=== PATIENT | male | born 1955 | race American Indian/Alaskan Native ===

== ENCOUNTER 2017-04-17 06:44 | Day surgery (SDC) | payer OTHER ==
[2017-04-17] MEDS ORDERED: ECOTRIN PO ONE (07:18)
[2017-04-17 07:56] LABS: Anion Gap 16 mmol/L; Blood Urea Nitrogen 20 mg/dL (9-20); Calcium 8.8 mg/dL (8.4-10.2); Carbon Dioxide 27 mmol/L (22-30); Chloride 99.3 mmol/L (98-107); Glucose 82 mg/dL (75-100); Potassium 4.2 mmol/L (3.6-5.0); Sodium 138 mmol/L (137-145)
[2017-04-17 07:59] LABS: INR 1.14 (0.87-1.13)
[2017-04-17] MEDS ORDERED: NACL 0.9% 500 ML 500 ML IV SCH (08:00)
[2017-04-17 08:15] LABS: Basophils % (Auto) 1.5 % (0.0-1.8); Eosinophils % (Auto) 3.2 % (0.0-4.3); Hematocrit 32.5 % (35.5-45.6); Hemoglobin 10.6 gm/dl (11.8-15.2); Mean Corpuscular HGB Conc 33 % (32-34); Mean Corpuscular Hemoglobin 29 pg (28-32); Mean Corpuscular Volume 89 fl (84-94); Platelet Count 244 K/mm3 (140-440); Red Blood Count 3.64 M/mm3 (3.65-5.03); White Blood Count 3.8 K/mm3 (4.5-11.0)
[2017-04-17] MEDS ORDERED: NITROGLYCERIN SYRINGE 3 ML ONE (08:42)
[2017-04-17] MEDS ORDERED: HEPARIN/NS 5000 UNIT/500ML(CATH LAB) 1,000 ML IR ONE (08:42)
[2017-04-17] MEDS: VERSED ONE ×2 (09:00→09:08)
[2017-04-17] MEDS: SUBLIMAZE ONE ×2 (09:00→09:08)
[2017-04-17] MEDS: CALAN ONE ×2 (09:01→09:12)
[2017-04-17] MEDS: HEPARIN 10,000 UNITS/10 ML ONE ×2 (09:01→09:12)
[2017-04-17] MEDS: XYLOCAINE 2% INFILTRATI ONE ×2 (09:01→09:10)
--- NOTE | 2017-04-17 09:47 | Short Stay Summary ---
Short Stay Documentation Date of service: 04/17/17 - History H&P: obtained from office - Allergies and Medications Current Medications: Allergies No Known Allergies Allergy (Unverified 04/17/17 06:44) Home Medications Medication Instructions Recorded Confirmed Last Taken Type Carvedilol [Carvedilol] 6.25 mg PO BID 04/17/17 04/17/17 04/15/17 History Gabapentin [Gabapentin] 300 mg PO TID 04/17/17 04/17/17 04/15/17 History Lisinopril/Hydrochlorothiazide 1 tab PO QDAY 04/17/17 04/17/17 04/15/17 History [Zestoretic 20-12.5 mg] Potassium 10 meq PO QDAY 04/17/17 04/17/17 04/15/17 History Active Medications Sodium Chloride (Nacl 0.9% 500 Ml) 500 mls @ 50 mls/hr IV DIRECT LIZ Stop: 04/17/17 17:59 Last Admin: 04/17/17 07:53 Dose: 50 mls/hr - Physical exam General appearance: no acute distress Integumentary: no rash HEENT: Atraumatic Lungs: Clear to auscultation Breasts: deferred Heart: Regular rate Gastrointestinal: normal Male Genitourinary: deferred Female Genitourinary: deferred Rectal Exam: deferred Extremities: no ischemia Neurological: Normal gait - Brief post op/procedure progress note Date of procedure: 04/17/17 Pre-op diagnosis: Cardiomyopathy, abnormal MPI Post-op diagnosis: same Procedure: LHC and LV gram Anesthesia: MAC Findings: Non-obstructive CAD, 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
--- NOTE | 2017-04-17 12:02 | Cardiac Catherization Report ---
LEFT HEART CATHETERIZATION ORDERING PHYSICIAN: Ina Serra M.D. INDICATION FOR PROCEDURE: Cardiomyopathy, abnormal myocardial perfusion scan revealing inferior, as well as anterior wall ischemia. PROCEDURES PERFORMED: 1. Selective left and right coronary angiography. 2. Left ventriculography. DESCRIPTION OF PROCEDURE: After obtaining written consent, the patient was draped using sterile technique. A 2% lidocaine was injected into the right wrist. A 1 mg of IV Versed and 2 mcg of IV fentanyl were used for conscious sedation. A 6-Georgian vascular sheath was inserted into the right radial artery. A 6-Georgian JL3.5 catheter was used to selectively engage the left coronary artery. A 6-Georgian JR4 catheter was used to selectively engage the right coronary artery. A 6-Georgian pigtail catheter was used to perform a left ventriculogram. No complications occurred during the procedure. Hemostasis was achieved at the end of the procedure using manual pressure. Estimated blood loss was minimal. SPECIMEN REMOVED: None. FINDINGS: Aortic pressure was 141/78, LV systolic pressure was 141 mmHg, LV end-diastolic pressure was 34 mmHg. CARDIAC STRUCTURES: The left ventricular cavity is dilated. There is moderate global left ventricular hypokinesis with an ejection fraction estimated at 35%. There is no significant mitral regurgitation. CORONARY ANATOMY: 1. This is a right dominant circulation. 2. The left main is a large caliber vessel with 10% mild disease. 3. The left anterior descending artery is a large caliber vessel with 10% diffuse mild disease. 4. The left circumflex artery is a large caliber vessel with 10% diffuse mild disease. 5. The right coronary artery is a large caliber vessel with 10% diffuse mild disease. The right coronary artery is dominant vessel. IMPRESSION: 1. Nonobstructive mild diffuse luminal irregularities noted throughout this right dominant circulation. 2. Dilated and hypokinetic left ventricle with an ejection fraction estimated at 35%. 3. Elevated left ventricular end-diastolic pressure measured at 34 mmHg. RECOMMENDATIONS: Continue afterload reduction and diuresis. Follow up with referring medical lab technologist. JOB# [id number] MICAELA/RIKA
[2017-04-17 12:16] VITALS: BP 127/79
== END 2017-04-17 12:45 | disposition home or self-care (01) ==
LOC: OPU 06:44
PROVIDERS: ATTEND Internal Medicine Cardiovascular Disease
DX: I25.10 Atherosclerotic heart disease of native coronary artery without angina pectoris (principal); I10 Essential (primary) hypertension; Z72.89 Other problems related to lifestyle; Z79.899 Other long term (current) drug therapy
CPT/HCPCS: 36415; 80048; 85025; 85610; 85730; 93005; 93010; 93458; C1894; J1644; J2250; J3010; J7040; Q9967

== ENCOUNTER 2017-10-20 09:33 | Inpatient (IN) | payer OTHER ==
--- NOTE | 2017-10-20 10:12 | Emergency Department Report ---
Chief Complaint: Extremity Problem,Nontraumatic Stated Complaint: LEGS SWOLLEN - HPI History of Present Illness: This 62-year-old male who presents with bilateral lower extremity swelling and pain 1 month. Patient denies any trauma. Patient also complaining of left hip pain described as aching. Patient denies any chest pain, calf pain, calf tenderness, shortness of breath, headache, stiff neck, nausea, vomiting, fever or chills. Denies recent travels or long car rides. Patient denies any history of any cardiac hypertension. - Exam Vital Signs: Vital Signs 10/20/17 09:53 Temperature 97.5 F L Pulse Rate 83 Respiratory 20 Rate Blood Pressure 147/105 O2 Sat by Pulse 96 Oximetry Physical Exam: GENERAL: The patient is a well-developed, well-nourished female in no apparent distress. Patient is alert and acting appropriately for age. Alert and oriented 3, no apparent distress, normal gait, atraumatic. LUNGS: Clear to auscultation. Non labor breathing. No intercostal retractions. Symmetrical with respiration, no wheezing, no rales, or crackles. HEART: Regular rate and rhythm with slight murmur heard, rubs or gallops. No reproducible. S1, S2 present, regular rate and rhythm without murmur, no rubs, no gallops. EXTREMITIES: Without any cyanosis, clubbing, rash, lesions. Positive edema kristine lower ext. 2+ pitting edema. Peripheral pulses intact. Capillary refill less than 2 seconds. Full range of motion bilaterally. MSE screening note: Focused history and physical exam performed. Due to findings the following was ordered: 1- This initial assessment/diagnostic orders/clinical plan/ treatment(s) is/are subject to change based on pt's health status, clinical progression and re- assessment by fellow clinical providers in the ED. Further treatment and workup at subsequent clinical provers discretion. Patient/guardians urged not to elope from ED as their condition may be serious if not clinically assessed and managed. 2-CBC, CMP, BNP, EKG, PT, INR, CXR, UA ED Disposition for MSE Condition: Stable
[2017-10-20 10:45] LABS: Basophils % (Auto) 0.8 % (0.0-1.8); Eosinophils % (Auto) 0.7 % (0.0-4.3); Hematocrit 35.3 % (35.5-45.6); Hemoglobin 11.4 gm/dl (11.8-15.2); Mean Corpuscular HGB Conc 32 % (32-34); Mean Corpuscular Hemoglobin 29 pg (28-32); Mean Corpuscular Volume 89 fl (84-94); Platelet Count 232 K/mm3 (140-440); Red Blood Count 3.97 M/mm3 (3.65-5.03); Red Cell Distribution Width 18.3 % (13.2-15.2); White Blood Count 6.1 K/mm3 (4.5-11.0)
[2017-10-20 10:53] LABS: INR 1.26 (0.87-1.13)
[2017-10-20 10:54] LABS: Partial Thromboplastin Time 29.6 Sec. (24.2-36.6)
--- NOTE | 2017-10-20 11:03 | XRay Report ---
ROUTINE CHEST, TWO VIEWS: HISTORY: Short of breath. No comparison. Mild cardiomegaly, mild pulmonary venous congestion and trace bilateral pleural effusions are identified. No evidence for consolidation or pneumothorax. IMPRESSION: Mild CHF.
[2017-10-20 11:04] LABS: Alanine Aminotransferase 28 units/L (7-56); Albumin 3.4 g/dL (3.9-5); Alkaline Phosphatase 82 units/L (35-129); Anion Gap 19 mmol/L; BUN/Creatinine Ratio 20; Blood Urea Nitrogen 24 mg/dL (9-20); Calcium 8.2 mg/dL (8.4-10.2); Carbon Dioxide 24 mmol/L (22-30); Chloride 100.4 mmol/L (98-107); Glucose 108 mg/dL (75-100); Potassium 3.5 mmol/L (3.6-5.0); Sodium 140 mmol/L (137-145); Total Protein 6.9 g/dL (6.3-8.2)
[2017-10-20 16:10] LABS: Bacteria,Urine 1+ /HPF (Negative); Bilirubin,Urine NEG (Negative); Blood,Urine NEG (Negative); Ketones,Urine NEG (Negative); Leukocyte Esterase,Urine NEG (Negative); Nitrite,Urine NEG (Negative); WBC,Urine < 1.0 /HPF (0.0-6.0)
[2017-10-20] MEDS ORDERED: LASIX IV ONE (17:18)
--- NOTE | 2017-10-20 17:22 | Emergency Department Report ---
HPI - General Chief Complaint: Extremity Problem,Nontraumatic Time Seen by Provider: 10/20/17 17:04 - [facility] HPI: Room 23 The patient is a 62-year-old male presenting with a chief complaint of bilateral lower extremity edema and shortness of breath. The patient states for the past 6 months he's had worsening bilateral lower extremity edema that improves when he lies down. The patient states for approximately 1 month history of shortness of breath and dyspnea on exertion. Patient also complains of left hip pain with walking. Patient denies chest pain but does admit to an occasional cough that is nonproductive. Location: Lungs Duration: 6 months Quality: Shortness of breath, swelling Severity: Moderate Modifying factors: [see above] Context: [see above] Mode of transportation: [not driving] ED Past Medical Hx - Past Medical History Previous Medical History?: Yes Hx Hypertension: Yes (01/16) - Surgical History Past Surgical History?: No - Family History Family history: no significant - Social History Smoking Status: Former Smoker (none 2 months) Substance Use Type: None (denies illicit drug use), Alcohol, Prescribed - Medications Home Medications: Home Medications Medication Instructions Recorded Confirmed Last Taken Type Carvedilol 6.25 mg PO BID 04/17/17 04/17/17 04/15/17 History Gabapentin 300 mg PO TID 04/17/17 04/17/17 04/15/17 History Lisinopril/Hydrochlorothiazide 1 tab PO QDAY 04/17/17 04/17/17 04/15/17 History [Zestoretic 20-12.5 mg] Potassium 10 meq PO QDAY 04/17/17 04/17/17 04/15/17 History ED Review of Systems ROS: Stated complaint: LEGS SWOLLEN Other details as noted in HPI Constitutional: denies: fever Respiratory: shortness of breath, SOB with exertion Cardiovascular: dyspnea on exertion. denies: chest pain Endocrine: no symptoms reported Gastrointestinal: nausea. denies: vomiting Musculoskeletal: arthralgia, myalgia Physical Exam - Physical Exam Vital Signs: Vital Signs 10/20/17 10/20/17 10/20/17 09:53 14:44 14:46 Temperature 97.5 F L Pulse Rate 83 88 Respiratory 20 18 Rate Blood Pressure 147/105 O2 Sat by Pulse 96 98 99 Oximetry 10/20/17 10/20/17 10/20/17 15:00 15:16 16:14 Temperature Pulse Rate 90 86 Respiratory 23 19 Rate Blood Pressure 156/124 156/124 O2 Sat by Pulse 96 96 100 Oximetry Physical Exam: GENERAL: The patient is well-developed well-nourished male lying on stretcher not appearing to be in acute distress. [] HEENT: Normocephalic. Atraumatic. Extraocular motions are intact. Patient has moist mucous membranes. NECK: Supple. Trachea midline CHEST/LUNGS: There is no respiratory distress noted. HEART/CARDIOVASCULAR: Regular. There is no tachycardia. There is no gallop rub or murmur. ABDOMEN: Abdomen is soft, nontender. There is no abdominal distention. SKIN: There is no rash. There is 3+ bilateral lower extremities pitting edema. There is no diaphoresis. NEURO: The patient is awake, alert, and oriented. The patient is cooperative. The patient has normal speech MUSCULOSKELETAL: There is no evidence of acute injury. ED Course Vital Signs 10/20/17 10/20/17 10/20/17 09:53 14:44 14:46 Temperature 97.5 F L Pulse Rate 83 88 Respiratory 20 18 Rate Blood Pressure 147/105 O2 Sat by Pulse 96 98 99 Oximetry 10/20/17 10/20/17 10/20/17 15:00 15:16 16:14 Temperature Pulse Rate 90 86 Respiratory 23 19 Rate Blood Pressure 156/124 156/124 O2 Sat by Pulse 96 96 100 Oximetry ED Medical Decision Making - Lab Data Result diagrams: 10/20/17 10:14 10/20/17 10:14 Laboratory Tests 10/20/17 10/20/17 10/20/17 10:14 10:14 10:14 WBC 6.1 RBC 3.97 Hgb 11.4 L Hct 35.3 L MCV 89 MCH 29 MCHC 32 RDW 18.3 H Plt Count 232 Lymph % (Auto) 8.6 L [place] % (Auto) 9.2 H Eos % (Auto) 0.7 Baso % (Auto) 0.8 Lymph # 0.5 L [place] # 0.6 Eos # 0.0 Baso # 0.0 Seg Neutrophils % 80.7 H Seg Neutrophils # 4.9 PT 16.4 H INR 1.26 H APTT 29.6 Sodium 140 Potassium 3.5 L Chloride 100.4 Carbon Dioxide 24 Anion Gap 19 BUN 24 H Creatinine 1.2 Estimated GFR > 60 BUN/Creatinine Ratio 20 Glucose 108 H Calcium 8.2 L Total Bilirubin 2.30 H AST 29 ALT 28 Alkaline Phosphatase 82 NT-Pro-B Natriuret Pep Total Protein 6.9 Albumin 3.4 L Albumin/Globulin Ratio 1.0 Urine Color Urine Turbidity Urine pH Ur Specific [place] Urine Protein Urine Glucose (UA) Urine Ketones Urine Blood Urine Nitrite Urine Bilirubin Urine Urobilinogen Ur Leukocyte Esterase Urine WBC (Auto) Urine RBC (Auto) Urine Bacteria (Auto) Hyaline Casts 10/20/17 10/20/17 10:14 15:45 WBC RBC Hgb Hct MCV MCH MCHC RDW Plt Count Lymph % (Auto) [place] % (Auto) Eos % (Auto) Baso % (Auto) Lymph # [place] # Eos # Baso # Seg Neutrophils % Seg Neutrophils # PT INR APTT Sodium Potassium Chloride Carbon Dioxide Anion Gap BUN Creatinine Estimated GFR BUN/Creatinine Ratio Glucose Calcium Total Bilirubin AST ALT Alkaline Phosphatase NT-Pro-B Natriuret Pep 5955 H Total Protein Albumin Albumin/Globulin Ratio Urine Color Yellow Urine Turbidity Clear Urine pH 6.0 Ur Specific [place] 1.016 Urine Protein 30 mg/dl Urine Glucose (UA) Neg Urine Ketones Neg Urine Blood Neg Urine Nitrite Neg Urine Bilirubin Neg Urine Urobilinogen 4.0 Ur Leukocyte Esterase Neg Urine WBC (Auto) < 1.0 Urine RBC (Auto) 1.0 Urine Bacteria (Auto) 1+ Hyaline Casts 3 - EKG Data -: EKG Interpreted by Me EKG shows normal: sinus rhythm Rate: normal - EKG Data When compared to previous EKG there are: previous EKG unavailable Interpretation: nonspecific ST-T wave ta (T-wave inversions in leads V5, V6) - Radiology Data Radiology results: image reviewed (chest x-ray) interpreted by me: Chest x-ray- cardiomegaly. No focal infiltrates, no pneumothorax - Differential Diagnosis CHF, ACS, pericarditis, pneumonia Critical care attestation.: If time is entered above; I have spent that time in minutes in the direct care of this critically ill patient, excluding procedure time. ED Disposition Clinical Impression: Congestive heart failure, Dyspnea on exertion Disposition: OP ADMIT IP TO THIS HOSP Is pt being admited?: Yes Does the pt Need Aspirin: Yes Condition: Fair Referrals: PRIMARY CARE, [Primary Care Provider] - 3-5 Days Time of Disposition: 17:24 (Hospitalist (Jaci) notified)
[2017-10-20] MEDS ORDERED: ASPIRIN PO ONE (17:24)
--- NOTE | 2017-10-20 18:09 | History and Physical Report ---
History of Present Illness Date of examination: 10/20/17 Date of admission: 10/20/17 Chief complaint: SOB and leg swelling x 1 month History of present illness: Patient is 62-year-old with history of hypertension, cardiomyopathy with EF 35% , gout. He presents with a one-month history of shortness of breath and bilateral leg edema. Patient states leg swelling started with both feet, became worse ascending up and now edema up to upper thighs. In addition he has been having shortness of breath, worse on exertion, worse on climbing stairs and also worse on lying flat. He denies any chest pain. No abdominal pain, no fever. In Emergency Dept, chest x-ray showed CHF. he was given lasix iv and is being admitted for further management. Also of note he had a cardiac cath March 2017 showed irregularities but no significant CAD, EF 35% Past History Past Medical History: hypertension, other (gout, cardiomyopathy) Past Surgical History: Other (cardiac cath in March 2017) Social history: , lives with family, alcohol abuse, full code. denies: smoking (Quit smoking 2 months ago) Family history: hypertension Medications and Allergies Allergies Allergy/AdvReac Type Severity Reaction Status Date / Time No Known Allergies Allergy Unverified 04/17/17 06:44 Home Medications Medication Instructions Recorded Confirmed Last Taken Type Carvedilol 6.25 mg PO BID 04/17/17 04/17/17 04/15/17 History Gabapentin 300 mg PO TID 04/17/17 04/17/17 04/15/17 History Lisinopril/Hydrochlorothiazide 1 tab PO QDAY 04/17/17 04/17/17 04/15/17 History [Zestoretic 20-12.5 mg] Potassium 10 meq PO QDAY 04/17/17 04/17/17 04/15/17 History Review of Systems All systems: negative (no chest pain, no fever, no abdominal pain, no urinary symptoms. All other systems reviewed and are negative) Exam - Physical Exam Narrative exam: GEN APPEARANCE : Not in acute distress, HEENT: Normocephalic Atraumatic NECK : supple, JVD present LUNGS: Bilateral basal crackles, no wheeze HEART: S1 and S2 regular, no murmurs, rubs or gallop ABD: Soft, no tenderness, no distension, normal bowel sounds EXT: Bilateral pitting edema 4+ from feet up to upper thighs, no clubbing, no cyanosis NEURO:Awake,alert,oriented x 3, no facial asymmetry, muscle power 5/5 both upper and lower ext PSYCH: Normal mood - Constitutional Vitals: Temp Pulse Resp BP Pulse Ox 97.5 F L 86 19 156/124 100 10/20/17 09:53 10/20/17 15:16 10/20/17 15:16 10/20/17 15:16 10/20/17 16:14 Results - Labs CBC & Chem 7: 10/20/17 10:14 10/20/17 10:14 Labs: Abnormal lab results 10/20/17 10/20/17 10/20/17 Range/Units 10:14 10:14 10:14 Hgb 11.4 L (11.8-15.2) gm/dl Hct 35.3 L (35.5-45.6) % RDW 18.3 H (13.2-15.2) % Lymph % (Auto) 8.6 L (13.4-35.0) % [place] % (Auto) 9.2 H (0.0-7.3) % Lymph # 0.5 L (1.2-5.4) K/mm3 Seg Neutrophils % 80.7 H (40.0-70.0) % PT 16.4 H (12.2-14.9) Sec. INR 1.26 H (0.87-1.13) Potassium 3.5 L (3.6-5.0) mmol/L BUN 24 H (9-20) mg/dL Glucose 108 H (75-100) mg/dL Calcium 8.2 L (8.4-10.2) mg/dL Total Bilirubin 2.30 H (0.1-1.2) mg/dL NT-Pro-B Natriuret Pep (0-900) pg/mL Albumin 3.4 L (3.9-5) g/dL 10/20/17 Range/Units 10:14 Hgb (11.8-15.2) gm/dl Hct (35.5-45.6) % RDW (13.2-15.2) % Lymph % (Auto) (13.4-35.0) % [place] % (Auto) (0.0-7.3) % Lymph # (1.2-5.4) K/mm3 Seg Neutrophils % (40.0-70.0) % PT (12.2-14.9) Sec. INR (0.87-1.13) Potassium (3.6-5.0) mmol/L BUN (9-20) mg/dL Glucose (75-100) mg/dL Calcium (8.4-10.2) mg/dL Total Bilirubin (0.1-1.2) mg/dL NT-Pro-B Natriuret Pep 5955 H (0-900) pg/mL Albumin (3.9-5) g/dL Assessment and Plan Acute systolic congestive heart failure. Admit to telemetry. Use CHF protocol. Lasix 40 mg IV twice daily. Continue Lisinopril and Coreg he was taking from home. Strict fluid intake and outputs, daily weights. Cardiac Diet. Consult [facility] who did cardiac cath in March this year. Acute resp failure due to acute CHF. Supplemental Oxygen Hypokalemia. Replace with K-dur Elevated Bilirubin. May be due to Hepatic congestion. Repeat CMP Hypertensive urgency: Resume Coreg and Lisinopril DVT prophylaxis with Heparin subcut. Full code status
[2017-10-20] MEDS ORDERED: DULCOLAX PR PRN (18:11)
[2017-10-20] MEDS ORDERED: MORPHINE IV PRN (18:11)
[2017-10-20] MEDS ORDERED: MILK OF MAGNESIA PO PRN (18:11)
[2017-10-20] MEDS ORDERED: TYLENOL PO PRN (18:11)
[2017-10-20] MEDS ORDERED: ZOFRAN IV PRN (18:11)
[2017-10-20] MEDS: COREG PO SCH ×2 (18:46→22:33)
[2017-10-20] MEDS: K-DUR PO SCH (18:48)
[2017-10-20] MEDS: ZESTRIL PO SCH ×2 (18:48→22:32)
[2017-10-20] MEDS: NEURONTIN PO SCH (21:10)
[2017-10-20] MEDS ORDERED: NEURONTIN ONE (21:12)
[2017-10-20] MEDS: HEPARIN SUB-Q SCH (22:33)
[2017-10-21] MEDS: K-DUR PO SCH ×2 (01:19→09:39)
[2017-10-21] MEDS ORDERED: K-DUR PO SCH (02:00)
[2017-10-21 06:01] LABS: Basophils % (Auto) 0.8 % (0.0-1.8); Eosinophils % (Auto) 0.9 % (0.0-4.3); Hematocrit 36.5 % (35.5-45.6); Hemoglobin 11.3 gm/dl (11.8-15.2); Mean Corpuscular HGB Conc 31 % (32-34); Mean Corpuscular Hemoglobin 28 pg (28-32); Mean Corpuscular Volume 89 fl (84-94); Platelet Count 228 K/mm3 (140-440); Red Blood Count 4.09 M/mm3 (3.65-5.03); Red Cell Distribution Width 17.8 % (13.2-15.2); White Blood Count 5.4 K/mm3 (4.5-11.0)
[2017-10-21] MEDS: LASIX IV SCH ×2 (06:14→17:33)
[2017-10-21 06:23] LABS: Alanine Aminotransferase 24 units/L (7-56); Albumin 3.3 g/dL (3.9-5); Albumin/Globulin Ratio 0.9 %; Alkaline Phosphatase 81 units/L (35-129); Anion Gap 19 mmol/L; BUN/Creatinine Ratio 22; Blood Urea Nitrogen 24 mg/dL (9-20); Calcium 8.3 mg/dL (8.4-10.2); Carbon Dioxide 25 mmol/L (22-30); Chloride 99.8 mmol/L (98-107); Glucose 94 mg/dL (75-100); Potassium 3.8 mmol/L (3.6-5.0); Sodium 140 mmol/L (137-145); Total Protein 6.8 g/dL (6.3-8.2)
[2017-10-21] MEDS: HEPARIN SUB-Q SCH ×3 (06:26→21:39)
[2017-10-21] MEDS: NEURONTIN PO SCH ×3 (08:10→21:40)
--- NOTE | 2017-10-21 08:41 | Progress Note ---
<DIANE HUMPHREYS - Last Filed: 10/21/17 10:24> Assessment and Plan Assessment and plan: Patient is 62-year-old with history of hypertension, cardiomyopathy with EF 35% , gout. He presents with a one-month history of shortness of breath and bilateral leg edema. Patient states leg swelling started with both feet, became worse ascending up and now edema up to upper thighs. In addition he has been having shortness of breath, worse on exertion, worse on climbing stairs and also worse on lying flat. Acute respiratory failure with hypoxia due to acute CHF supplemental Oxygen Patient oxygen saturation improved with 2LNC; currently SPO2 98%. No acute respiratory distress noted. Aggressive Nebulizers/Inhalers ABG when necessary Oxygen supplement Supportive care Acute systolic congestive heart failure Echocardiogram EF 35% by [facility] 03/2017 Continue on Diuresis, beta blockers and ACEI/ARB Strict I&O's and daily weights Low-sodium/cardiac diet/fluid restriction Closely monitor electrolytes Cardiology evaluation Dilated NICMP EF 35% by [facility] 03/2017 Hypokalemia Resolved Closely monitor electrolytes Elevated Bilirubin. Most likely due to Hepatic congestion. Repeat CMP Hypertensive urgency Continue home antihypertensive medications Closely monitor blood pressure Chronic anemia H&H stable for patient at this point; no blood transfusions needed Closely monitor H&H DVT prophylaxis Heparin History Interval history: Patient denies shortnesses of breath, chest pain. Labs and nursing notes reviewed. Hospitalist Physical - Constitutional Vitals: Temp Pulse Resp BP Pulse Ox 98.2 F 50 L 19 133/96 100 10/21/17 08:13 10/21/17 08:13 10/21/17 08:13 10/21/17 04:40 10/21/17 08:13 General appearance: Present: no acute distress - EENT Eyes: Present: PERRL ENT: hearing intact - Neck Neck: Present: supple - Respiratory Respiratory effort: normal Respiratory: bilateral: rales - Cardiovascular Rhythm: regular Heart Sounds: Present: S1 & S2 - Extremities Extremity abnormal: edema (and dark discoloration) - Abdominal General gastrointestinal: soft, non-tender - Integumentary Integumentary: Present: clear, warm, dry - Psychiatric Psychiatric: appropriate mood/affect - Neurologic Neurologic: moves all extremities - Allied Health Allied health notes reviewed: nursing Results - Labs CBC & Chem 7: 10/21/17 05:05 10/21/17 05:05 Labs: Laboratory Last Values WBC 5.4 K/mm3 (4.5-11.0) 10/21/17 05:05 RBC 4.09 M/mm3 (3.65-5.03) 10/21/17 05:05 Hgb 11.3 gm/dl (11.8-15.2) L 10/21/17 05:05 Hct 36.5 % (35.5-45.6) 10/21/17 05:05 MCV 89 fl (84-94) 10/21/17 05:05 MCH 28 pg (28-32) 10/21/17 05:05 MCHC 31 % (32-34) L 10/21/17 05:05 RDW 17.8 % (13.2-15.2) H 10/21/17 05:05 Plt Count 228 K/mm3 (140-440) 10/21/17 05:05 Lymph % (Auto) 12.8 % (13.4-35.0) L 10/21/17 05:05 [place] % (Auto) 11.7 % (0.0-7.3) H 10/21/17 05:05 Eos % (Auto) 0.9 % (0.0-4.3) 10/21/17 05:05 Baso % (Auto) 0.8 % (0.0-1.8) 10/21/17 05:05 Lymph # 0.7 K/mm3 (1.2-5.4) L 10/21/17 05:05 [place] # 0.6 K/mm3 (0.0-0.8) 10/21/17 05:05 Eos # 0.1 K/mm3 (0.0-0.4) 10/21/17 05:05 Baso # 0.0 K/mm3 (0.0-0.1) 10/21/17 05:05 Seg Neutrophils % 73.8 % (40.0-70.0) H 10/21/17 05:05 Seg Neutrophils # 4.0 K/mm3 (1.8-7.7) 10/21/17 05:05 PT 16.4 Sec. (12.2-14.9) H 10/20/17 10:14 INR 1.26 (0.87-1.13) H 10/20/17 10:14 APTT 29.6 Sec. (24.2-36.6) 10/20/17 10:14 Sodium 140 mmol/L (137-145) 10/21/17 05:05 Potassium 3.8 mmol/L (3.6-5.0) 10/21/17 05:05 Chloride 99.8 mmol/L (98-107) 10/21/17 05:05 Carbon Dioxide 25 mmol/L (22-30) 10/21/17 05:05 Anion Gap 19 mmol/L 10/21/17 05:05 BUN 24 mg/dL (9-20) H 10/21/17 05:05 Creatinine 1.1 mg/dL (0.8-1.5) 10/21/17 05:05 Estimated GFR > 60 ml/min 10/21/17 05:05 BUN/Creatinine Ratio 22 % 10/21/17 05:05 Glucose 94 mg/dL (75-100) 10/21/17 05:05 Calcium 8.3 mg/dL (8.4-10.2) L 10/21/17 05:05 Total Bilirubin 2.60 mg/dL (0.1-1.2) H 10/21/17 05:05 AST 23 units/L (5-40) 10/21/17 05:05 ALT 24 units/L (7-56) 10/21/17 05:05 Alkaline Phosphatase 81 units/L (35-129) 10/21/17 05:05 NT-Pro-B Natriuret Pep 5955 pg/mL (0-900) H 10/20/17 10:14 Total Protein 6.8 g/dL (6.3-8.2) 10/21/17 05:05 Albumin 3.3 g/dL (3.9-5) L 10/21/17 05:05 Albumin/Globulin Ratio 0.9 % 10/21/17 05:05 Urine Color Yellow (Yellow) 10/20/17 15:45 Urine Turbidity Clear (Clear) 10/20/17 15:45 Urine pH 6.0 (5.0-7.0) 10/20/17 15:45 Ur Specific [place] 1.016 (1.003-1.030) 10/20/17 15:45 Urine Protein 30 mg/dl mg/dL (Negative) 10/20/17 15:45 Urine Glucose (UA) Neg mg/dL (Negative) 10/20/17 15:45 Urine Ketones Neg mg/dL (Negative) 10/20/17 15:45 Urine Blood Neg (Negative) 10/20/17 15:45 Urine Nitrite Neg (Negative) 10/20/17 15:45 Urine Bilirubin Neg (Negative) 10/20/17 15:45 Urine Urobilinogen 4.0 mg/dL (<2.0) 10/20/17 15:45 Ur Leukocyte Esterase Neg (Negative) 10/20/17 15:45 Urine WBC (Auto) < 1.0 /HPF (0.0-6.0) 10/20/17 15:45 Urine RBC (Auto) 1.0 /HPF (0.0-6.0) 10/20/17 15:45 Urine Bacteria (Auto) 1+ /HPF (Negative) 10/20/17 15:45 Hyaline Casts 3 /LPF 10/20/17 15:45 <SALAZAR MEZA M - Last Filed: 10/21/17 16:26> Assessment and Plan Assessment and plan: I saw and evaluated the patient. I agree with the findings and the plan of care as documented in the Nurse Practitioner's progress note. Hospitalist Physical - Constitutional Vitals: Temp Pulse Resp BP Pulse Ox 98.1 F 75 19 130/95 100 10/21/17 15:52 10/21/17 15:52 10/21/17 15:52 10/21/17 15:52 10/21/17 15:52 Results - Labs CBC & Chem 7: 10/21/17 05:05 10/21/17 05:05 Labs: Laboratory Last Values WBC 5.4 K/mm3 (4.5-11.0) 10/21/17 05:05 RBC 4.09 M/mm3 (3.65-5.03) 10/21/17 05:05 Hgb 11.3 gm/dl (11.8-15.2) L 10/21/17 05:05 Hct 36.5 % (35.5-45.6) 10/21/17 05:05 MCV 89 fl (84-94) 10/21/17 05:05 MCH 28 pg (28-32) 10/21/17 05:05 MCHC 31 % (32-34) L 10/21/17 05:05 RDW 17.8 % (13.2-15.2) H 10/21/17 05:05 Plt Count 228 K/mm3 (140-440) 10/21/17 05:05 Lymph % (Auto) 12.8 % (13.4-35.0) L 10/21/17 05:05 [place] % (Auto) 11.7 % (0.0-7.3) H 10/21/17 05:05 Eos % (Auto) 0.9 % (0.0-4.3) 10/21/17 05:05 Baso % (Auto) 0.8 % (0.0-1.8) 10/21/17 05:05 Lymph # 0.7 K/mm3 (1.2-5.4) L 10/21/17 05:05 [place] # 0.6 K/mm3 (0.0-0.8) 10/21/17 05:05 Eos # 0.1 K/mm3 (0.0-0.4) 10/21/17 05:05 Baso # 0.0 K/mm3 (0.0-0.1) 10/21/17 05:05 Seg Neutrophils % 73.8 % (40.0-70.0) H 10/21/17 05:05 Seg Neutrophils # 4.0 K/mm3 (1.8-7.7) 10/21/17 05:05 PT 16.4 Sec. (12.2-14.9) H 10/20/17 10:14 INR 1.26 (0.87-1.13) H 10/20/17 10:14 APTT 29.6 Sec. (24.2-36.6) 10/20/17 10:14 Sodium 140 mmol/L (137-145) 10/21/17 05:05 Potassium 3.8 mmol/L (3.6-5.0) 10/21/17 05:05 Chloride 99.8 mmol/L (98-107) 10/21/17 05:05 Carbon Dioxide 25 mmol/L (22-30) 10/21/17 05:05 Anion Gap 19 mmol/L 10/21/17 05:05 BUN 24 mg/dL (9-20) H 10/21/17 05:05 Creatinine 1.1 mg/dL (0.8-1.5) 10/21/17 05:05 Estimated GFR > 60 ml/min 10/21/17 05:05 BUN/Creatinine Ratio 22 % 10/21/17 05:05 Glucose 94 mg/dL (75-100) 10/21/17 05:05 Calcium 8.3 mg/dL (8.4-10.2) L 10/21/17 05:05 Total Bilirubin 2.60 mg/dL (0.1-1.2) H 10/21/17 05:05 AST 23 units/L (5-40) 10/21/17 05:05 ALT 24 units/L (7-56) 10/21/17 05:05 Alkaline Phosphatase 81 units/L (35-129) 10/21/17 05:05 NT-Pro-B Natriuret Pep 5955 pg/mL (0-900) H 10/20/17 10:14 Total Protein 6.8 g/dL (6.3-8.2) 10/21/17 05:05 Albumin 3.3 g/dL (3.9-5) L 10/21/17 05:05 Albumin/Globulin Ratio 0.9 % 10/21/17 05:05 Urine Color Yellow (Yellow) 10/20/17 15:45 Urine Turbidity Clear (Clear) 10/20/17 15:45 Urine pH 6.0 (5.0-7.0) 10/20/17 15:45 Ur Specific [place] 1.016 (1.003-1.030) 10/20/17 15:45 Urine Protein 30 mg/dl mg/dL (Negative) 10/20/17 15:45 Urine Glucose (UA) Neg mg/dL (Negative) 10/20/17 15:45 Urine Ketones Neg mg/dL (Negative) 10/20/17 15:45 Urine Blood Neg (Negative) 10/20/17 15:45 Urine Nitrite Neg (Negative) 10/20/17 15:45 Urine Bilirubin Neg (Negative) 10/20/17 15:45 Urine Urobilinogen 4.0 mg/dL (<2.0) 10/20/17 15:45 Ur Leukocyte Esterase Neg (Negative) 10/20/17 15:45 Urine WBC (Auto) < 1.0 /HPF (0.0-6.0) 10/20/17 15:45 Urine RBC (Auto) 1.0 /HPF (0.0-6.0) 10/20/17 15:45 Urine Bacteria (Auto) 1+ /HPF (Negative) 10/20/17 15:45 Hyaline Casts 3 /LPF 10/20/17 15:45
--- NOTE | 2017-10-21 08:46 | Consultation ---
History of Present Illness Consult date: 10/21/17 Consult reason: congestive heart failure History of present illness: This is a 62yr old male with a known history of non-ischemic cardiomyopathy by a cardiac cath 6 months ago that demonstrated no significant coronary disease but an ejection fraction of 35%. Patient presents to this hospital with complaints of shortness of breath, fatigue, severe bilateral lower extremity edema extending upwards to thighs, admitted with CHF exacerbation. Chest x-ray reports mild CHF. Patient admits he ran out of his medications a month ago. He denies chest pain and palpitations. Cardiac consultation was requested for management of CHF. Past History Past Medical History: hypertension, other (gout, cardiomyopathy) Past Surgical History: Other (cardiac cath in March 2017) Social history: , lives with family, alcohol abuse, full code. denies: smoking (Quit smoking 2 months ago) Family history: hypertension Medications and Allergies Allergies Allergy/AdvReac Type Severity Reaction Status Date / Time No Known Allergies Allergy Unverified 04/17/17 06:44 Home Medications Medication Instructions Recorded Confirmed Last Taken Type Carvedilol 6.25 mg PO BID 04/17/17 10/21/17 1 Day Ago History ~10/20/17 Gabapentin 300 mg PO TID 04/17/17 10/21/17 1 Day Ago History ~10/20/17 Lisinopril/Hydrochlorothiazide 1 tab PO QDAY 04/17/17 10/21/17 1 Day Ago History [Zestoretic 20-12.5 mg] ~10/20/17 Potassium Chloride [K-Dur] 10 meq PO QDAY #0 04/17/17 10/21/17 1 Day Ago History ~10/20/17 Active Meds: Active Medications Acetaminophen (Tylenol) 650 mg PO Q4H PRN PRN Reason: Pain MILD(1-3)/Fever >100.5/ANGELO Bisacodyl (Dulcolax) 10 mg [place] QDAY PRN PRN Reason: Constipation unrelieved by MOM Carvedilol (Coreg) 6.25 mg PO BID REPLACED BY [facility] Last Admin: 10/20/17 22:33 Dose: 6.25 mg Furosemide (Lasix) 40 mg IV BID@0600,1800 REPLACED BY [facility] Last Admin: 10/21/17 06:14 Dose: 40 mg Gabapentin (Neurontin) 300 mg PO TID REPLACED BY [facility] Last Admin: 10/21/17 08:10 Dose: 300 mg Heparin Sodium (Porcine) (Heparin) 5,000 unit SUB-Q Q8HR REPLACED BY [facility] Last Admin: 10/21/17 06:26 Dose: 5,000 unit Influenza Virus Vaccine Quadrival (Fluarix Quad [id number](36 Mos+) 0.5 ml IM .ONCE ONE Stop: 10/21/17 12:01 Lisinopril (Zestril) 20 mg PO BID REPLACED BY [facility] Last Admin: 10/20/17 22:32 Dose: 20 mg Magnesium Hydroxide (Milk Of Magnesia) 30 ml PO Q4H PRN PRN Reason: Constipation Morphine Sulfate (Morphine) 2 mg IV Q4H PRN PRN Reason: Pain, Moderate (4-6) Last Admin: 10/21/17 06:23 Dose: 2 mg Ondansetron HCl (Zofran) 4 mg IV Q6H PRN PRN Reason: nausea or vomiting Pneumococcal Polyvalent Vaccine (Pneumovax 23) 0.5 ml IM .ONCE ONE Stop: 10/21/17 12:01 Potassium Chloride (K-Dur) 40 meq PO QDAY REPLACED BY [facility] Stop: 10/24/17 09:59 Physical Examination Vital Signs Pulse BP Pulse Ox 84 147/105 96 10/20/17 09:46 10/20/17 09:46 10/20/17 09:46 General appearance: no acute distress HEENT: Positive: PERRL Cardiac: Positive: Reg Rate and Rhythm Lungs: Positive: Decreased Breath Sounds Neuro: Positive: Grossly Intact Extremities: Present: +3 Edema Results 10/21/17 05:05 10/21/17 05:05 Cardiac Enzymes 10/20/17 10/21/17 Range/Units 10:14 05:05 AST 29 23 (5-40) units/L Coagulation 10/20/17 Range/Units 10:14 PT 16.4 H (12.2-14.9) Sec. INR 1.26 H (0.87-1.13) APTT 29.6 (24.2-36.6) Sec. CBC 10/20/17 10/21/17 Range/Units 10:14 05:05 WBC 6.1 5.4 (4.5-11.0) K/mm3 RBC 3.97 4.09 (3.65-5.03) M/mm3 Hgb 11.4 L 11.3 L (11.8-15.2) gm/dl Hct 35.3 L 36.5 (35.5-45.6) % Plt Count 232 228 (140-440) K/mm3 Lymph # 0.5 L 0.7 L (1.2-5.4) K/mm3 [place] # 0.6 0.6 (0.0-0.8) K/mm3 Eos # 0.0 0.1 (0.0-0.4) K/mm3 Baso # 0.0 0.0 (0.0-0.1) K/mm3 Comprehensive Metabolic Panel 10/20/17 10/21/17 Range/Units 10:14 05:05 Sodium 140 140 (137-145) mmol/L Potassium 3.5 L 3.8 (3.6-5.0) mmol/L Chloride 100.4 99.8 (98-107) mmol/L Carbon Dioxide 24 25 (22-30) mmol/L BUN 24 H 24 H (9-20) mg/dL Creatinine 1.2 1.1 (0.8-1.5) mg/dL Glucose 108 H 94 (75-100) mg/dL Calcium 8.2 L 8.3 L (8.4-10.2) mg/dL AST 29 23 (5-40) units/L ALT 28 24 (7-56) units/L Alkaline Phosphatase 82 81 (35-129) units/L Total Protein 6.9 6.8 (6.3-8.2) g/dL Albumin 3.4 L 3.3 L (3.9-5) g/dL Assessment and Plan Acute CHF exacerbation, systolic s/t to noncompliance with medications and fluid restrictions Dilated NICMP no significant CAD, EF 35% by [facility] 03/2017 Hypertension
[2017-10-21] MEDS: ZESTRIL PO SCH ×2 (09:38→21:40)
[2017-10-21] MEDS: COREG PO SCH ×2 (09:38→21:40)
[2017-10-21] MEDS ORDERED: Fluarix Quad 2017-2018(36 MOS+ IM ONE (12:00)
[2017-10-21] MEDS ORDERED: PNEUMOVAX 23 IM ONE (12:00)
[2017-10-21] MEDS: APRESOLINE PO SCH ×2 (14:08→21:39)
[2017-10-22 06:02] LABS: Anion Gap 19 mmol/L; BUN/Creatinine Ratio 21; Blood Urea Nitrogen 30 mg/dL (9-20); Calcium 8.2 mg/dL (8.4-10.2); Carbon Dioxide 24 mmol/L (22-30); Chloride 102.8 mmol/L (98-107); Glucose 85 mg/dL (75-100); Potassium 4.3 mmol/L (3.6-5.0); Sodium 141 mmol/L (137-145)
[2017-10-22] MEDS: LASIX IV SCH ×2 (06:06→18:14)
[2017-10-22] MEDS: HEPARIN SUB-Q SCH ×3 (06:06→21:30)
[2017-10-22] MEDS: APRESOLINE PO SCH ×3 (06:07→21:29)
[2017-10-22] MEDS: K-DUR PO SCH (10:24)
[2017-10-22] MEDS: ZESTRIL PO SCH ×2 (10:24→21:30)
[2017-10-22] MEDS: COREG PO SCH ×2 (10:24→21:30)
[2017-10-22] MEDS: NEURONTIN PO SCH ×3 (10:24→21:29)
--- NOTE | 2017-10-22 11:13 | Progress Note ---
Assessment and Plan - Patient Problems (1) Acute on chronic systolic heart failure Current Visit: Yes Status: Acute Plan to address problem: We'll add intravenous milrinone for management of decompensated systolic heart failure. Subjective Date of service: 10/22/17 Interval history: Patient has significant residual 2-3+ edema, despite aggressive intravenous diuresis. Objective Vital Signs Temp Pulse Resp BP BP Pulse Ox 10/22/17 09:40 100 10/22/17 08:40 98.1 F 77 18 136/102 100 10/22/17 06:07 66 123/88 10/22/17 03:55 97.4 F L 20 123/88 10/22/17 02:55 66 10/22/17 00:02 98.3 F 60 114/81 100 10/21/17 21:40 66 123/88 10/21/17 21:39 66 123/88 10/21/17 20:59 98 10/21/17 19:20 97.4 F L 66 20 123/88 100 10/21/17 15:52 98.1 F 75 19 130/95 100 10/21/17 15:51 72 10/21/17 14:10 98.1 F 72 18 126/101 100 10/21/17 14:08 72 126/101 10/21/17 11:58 98.1 F 72 17 100 - Physical Examination General: No Apparent Distress HEENT: Positive: PERRL Neck: Positive: neck supple Cardiac: Positive: Reg Rate and Rhythm Lungs: Positive: Decreased Breath Sounds Neuro: Positive: Grossly Intact Abdomen: Positive: Soft Skin: Positive: Clear Extremities: Present: +3 Edema - Labs and Meds Comprehensive Metabolic Panel 10/22/17 Range/Units 04:16 Sodium 141 (137-145) mmol/L Potassium 4.3 (3.6-5.0) mmol/L Chloride 102.8 (98-107) mmol/L Carbon Dioxide 24 (22-30) mmol/L BUN 30 H (9-20) mg/dL Creatinine 1.4 (0.8-1.5) mg/dL Glucose 85 (75-100) mg/dL Calcium 8.2 L (8.4-10.2) mg/dL
--- NOTE | 2017-10-22 14:18 | Progress Note ---
Assessment and Plan Assessment and plan: Patient is 62-year-old with history of hypertension, cardiomyopathy with EF 35% , gout. He presents with a one-month history of shortness of breath and bilateral leg edema. Patient states leg swelling started with both feet, became worse ascending up and now edema up to upper thighs. In addition he has been having shortness of breath, worse on exertion, worse on climbing stairs and also worse on lying flat. Acute respiratory failure with hypoxia due to acute CHF supplemental Oxygen - Resolving Acute systolic congestive heart failure Echocardiogram EF 35% by [facility] 03/2017 Continue on Diuresis, beta blockers and ACEI/ARB Cardiology recommended IV milrinone Strict I&O's and daily weights Low-sodium/cardiac diet/fluid restriction Closely monitor electrolytes Dilated NICMP EF 35% by [facility] 03/2017 Hypokalemia Resolved Closely monitor electrolytes Elevated Bilirubin. Most likely due to Hepatic congestion. Repeat CMP Hypertensive urgency Continue home antihypertensive medications Closely monitor blood pressure Chronic anemia H&H stable for patient at this point; no blood transfusions needed Closely monitor H&H DVT prophylaxis Heparin History Interval history: Patient was seen and evaluated this morning, shortness of breath is getting better, still has bilateral leg swelling. Hospitalist Physical - Physical exam Narrative exam: Not in cardiopulmonary distress. The patient appeared well nourished and normally developed. Vital signs as documented. Head exam is unremarkable. No scleral icterus . Neck is without jugular venous distension, thyromegaly, or carotid bruits. Lungs are clear to auscultation. Cardiac exam reveals regular rate and Rhythm. First and second heart sounds normal. No murmurs, rubs or gallops. Abdominal exam reveals normal bowel sounds, no masses, no organomegaly and no aortic enlargement. Extremities +2 pedal and pretibial edema. [employer]: Alert and oriented 3. No focal weakness. - Constitutional Vitals: Temp Pulse Resp BP Pulse Ox 98.1 F 78 18 136/102 100 10/22/17 08:40 10/22/17 11:22 10/22/17 08:40 10/22/17 08:40 10/22/17 09:40 General appearance: Present: no acute distress Results - Labs CBC & Chem 7: 10/21/17 05:05 10/22/17 04:16 Labs: Laboratory Last Values WBC 5.4 K/mm3 (4.5-11.0) 10/21/17 05:05 RBC 4.09 M/mm3 (3.65-5.03) 10/21/17 05:05 Hgb 11.3 gm/dl (11.8-15.2) L 10/21/17 05:05 Hct 36.5 % (35.5-45.6) 10/21/17 05:05 MCV 89 fl (84-94) 10/21/17 05:05 MCH 28 pg (28-32) 10/21/17 05:05 MCHC 31 % (32-34) L 10/21/17 05:05 RDW 17.8 % (13.2-15.2) H 10/21/17 05:05 Plt Count 228 K/mm3 (140-440) 10/21/17 05:05 Lymph % (Auto) 12.8 % (13.4-35.0) L 10/21/17 05:05 [place] % (Auto) 11.7 % (0.0-7.3) H 10/21/17 05:05 Eos % (Auto) 0.9 % (0.0-4.3) 10/21/17 05:05 Baso % (Auto) 0.8 % (0.0-1.8) 10/21/17 05:05 Lymph # 0.7 K/mm3 (1.2-5.4) L 10/21/17 05:05 [place] # 0.6 K/mm3 (0.0-0.8) 10/21/17 05:05 Eos # 0.1 K/mm3 (0.0-0.4) 10/21/17 05:05 Baso # 0.0 K/mm3 (0.0-0.1) 10/21/17 05:05 Seg Neutrophils % 73.8 % (40.0-70.0) H 10/21/17 05:05 Seg Neutrophils # 4.0 K/mm3 (1.8-7.7) 10/21/17 05:05 PT 16.4 Sec. (12.2-14.9) H 10/20/17 10:14 INR 1.26 (0.87-1.13) H 10/20/17 10:14 APTT 29.6 Sec. (24.2-36.6) 10/20/17 10:14 Sodium 141 mmol/L (137-145) 10/22/17 04:16 Potassium 4.3 mmol/L (3.6-5.0) 10/22/17 04:16 Chloride 102.8 mmol/L (98-107) 10/22/17 04:16 Carbon Dioxide 24 mmol/L (22-30) 10/22/17 04:16 Anion Gap 19 mmol/L 10/22/17 04:16 BUN 30 mg/dL (9-20) H 10/22/17 04:16 Creatinine 1.4 mg/dL (0.8-1.5) 10/22/17 04:16 Estimated GFR > 60 ml/min 10/22/17 04:16 BUN/Creatinine Ratio 21 % 10/22/17 04:16 Glucose 85 mg/dL (75-100) 10/22/17 04:16 Calcium 8.2 mg/dL (8.4-10.2) L 10/22/17 04:16 Total Bilirubin 2.60 mg/dL (0.1-1.2) H 10/21/17 05:05 AST 23 units/L (5-40) 10/21/17 05:05 ALT 24 units/L (7-56) 10/21/17 05:05 Alkaline Phosphatase 81 units/L (35-129) 10/21/17 05:05 NT-Pro-B Natriuret Pep 5955 pg/mL (0-900) H 10/20/17 10:14 Total Protein 6.8 g/dL (6.3-8.2) 10/21/17 05:05 Albumin 3.3 g/dL (3.9-5) L 10/21/17 05:05 Albumin/Globulin Ratio 0.9 % 10/21/17 05:05 Urine Color Yellow (Yellow) 10/20/17 15:45 Urine Turbidity Clear (Clear) 10/20/17 15:45 Urine pH 6.0 (5.0-7.0) 10/20/17 15:45 Ur Specific [place] 1.016 (1.003-1.030) 10/20/17 15:45 Urine Protein 30 mg/dl mg/dL (Negative) 10/20/17 15:45 Urine Glucose (UA) Neg mg/dL (Negative) 10/20/17 15:45 Urine Ketones Neg mg/dL (Negative) 10/20/17 15:45 Urine Blood Neg (Negative) 10/20/17 15:45 Urine Nitrite Neg (Negative) 10/20/17 15:45 Urine Bilirubin Neg (Negative) 10/20/17 15:45 Urine Urobilinogen 4.0 mg/dL (<2.0) 10/20/17 15:45 Ur Leukocyte Esterase Neg (Negative) 10/20/17 15:45 Urine WBC (Auto) < 1.0 /HPF (0.0-6.0) 10/20/17 15:45 Urine RBC (Auto) 1.0 /HPF (0.0-6.0) 10/20/17 15:45 Urine Bacteria (Auto) 1+ /HPF (Negative) 10/20/17 15:45 Hyaline Casts 3 /LPF 10/20/17 15:45
[2017-10-22] MEDS: HALFPRIN EC PO SCH (15:20)
[2017-10-22] MEDS: PRIMACOR 20 MG in D5W 80 ML IV SCH ×2 (15:20→21:50)
[2017-10-22] MEDS: PERCOCET 5/325 PO PRN (21:31)
[2017-10-23 05:37] LABS: Bilirubin,Total 1.7 mg/dL (0.1-1.2); Calcium 8.3 mg/dL (8.4-10.2); Chloride 101.3 mmol/L (98-107); Potassium 4.5 mmol/L (3.6-5.0); Total Protein 6.1 g/dL (6.3-8.2)
[2017-10-23] MEDS: PERCOCET 5/325 PO PRN ×2 (05:58→18:35)
[2017-10-23] MEDS: APRESOLINE PO SCH ×3 (05:59→22:10)
[2017-10-23] MEDS: HEPARIN SUB-Q SCH ×3 (06:00→22:03)
[2017-10-23] MEDS: LASIX IV SCH ×2 (06:00→18:28)
--- NOTE | 2017-10-23 11:01 | Consultation ---
History of Present Illness - Reason for Consult Consult date: 10/23/17 acute renal failure, chronic renal failure - History of Present Illness patient with h/o systolic congestive heart failure who was admitted on 10/20 for worsening SOB and edema, he was evaluated by cardiology and was started on IV diuretics, he remained with SOB and edema in lower ext and was started on Milrinone, blood work did show worsening renal function and nephrology consult was requested. when seen patient stated mild improvement in SOB but remains worse than baseline Past History Past Medical History: hypertension, other (gout, cardiomyopathy) Past Surgical History: Other (cardiac cath in March 2017) Social history: , lives with family, alcohol abuse, full code. denies: smoking (Quit smoking 2 months ago) Family history: hypertension Medications and Allergies Allergies Allergy/AdvReac Type Severity Reaction Status Date / Time No Known Allergies Allergy Unverified 04/17/17 06:44 Home Medications Medication Instructions Recorded Confirmed Last Taken Type Carvedilol 6.25 mg PO BID 04/17/17 10/21/17 1 Day Ago History ~10/20/17 Gabapentin 300 mg PO TID 04/17/17 10/21/17 1 Day Ago History ~10/20/17 Lisinopril/Hydrochlorothiazide 1 tab PO QDAY 04/17/17 10/21/17 1 Day Ago History [Zestoretic 20-12.5 mg] ~10/20/17 Potassium Chloride [K-Dur] 10 meq PO QDAY #0 04/17/17 10/21/17 1 Day Ago History ~10/20/17 Active Meds: Active Medications Acetaminophen (Tylenol) 650 mg PO Q4H PRN PRN Reason: Pain MILD(1-3)/Fever >100.5/ANGELO Aspirin (Halfprin Ec) 81 mg PO QDAY [facility] Last Admin: 10/22/17 15:20 Dose: 81 mg Bisacodyl (Dulcolax) 10 mg [place] QDAY PRN PRN Reason: Constipation unrelieved by MOM Carvedilol (Coreg) 6.25 mg PO BID [facility] Last Admin: 10/22/17 21:30 Dose: 6.25 mg Furosemide (Lasix) 40 mg IV BID@0600,1800 [facility] Last Admin: 10/23/17 06:00 Dose: 40 mg Gabapentin (Neurontin) 300 mg PO TID [facility] Last Admin: 10/22/17 21:29 Dose: 300 mg Heparin Sodium (Porcine) (Heparin) 5,000 unit SUB-Q Q8HR [facility] Last Admin: 10/23/17 06:00 Dose: 5,000 unit Hydralazine HCl (Apresoline) 25 mg PO Q8HR [facility] Last Admin: 10/23/17 05:59 Dose: 25 mg Milrinone Lactate 20 mg/ (Dextrose) 100 mls @ 11.08 mls/hr IV TITR LIZ PRN Reason: 0.375 MCG/KG/MIN Stop: 10/25/17 11:59 Last Admin: 10/22/17 21:50 Dose: 0.375 mcg/kg/min, 11.08 mls/hr Magnesium Hydroxide (Milk Of Magnesia) 30 ml PO Q4H PRN PRN Reason: Constipation Ondansetron HCl (Zofran) 4 mg IV Q6H PRN PRN Reason: nausea or vomiting Oxycodone/Acetaminophen (Percocet 5/325) 2 tab PO Q4H PRN PRN Reason: Pain, Moderate (4-6) Last Admin: 10/23/17 05:58 Dose: 2 tab Potassium Chloride (K-Dur) 40 meq PO QDAY [facility] Stop: 10/24/17 09:59 Last Admin: 10/22/17 10:24 Dose: 40 meq Review of Systems All systems: negative (SOB, swelling in both legs) Exam - Vital Signs Vital signs: Vital Signs Pulse BP Pulse Ox 84 147/105 96 10/20/17 09:46 10/20/17 09:46 10/20/17 09:46 - General Appearance General appearance: well-developed, well-nourished, appears stated age EENT: ATNC, PERRL, mucous membranes moist Neck: Present: neck supple Respiratory: Rales, Decreased Breath Sounds Heart: regular, S1S2 Gastrointestinal: Present: normoactive bowel sounds. Absent: tenderness, distended, guarding Integumentary: no rash, warm and dry Neurologic: no focal deficit, no asterixis, alert and oriented x3 Musculoskeletal: Present: other (1-2+ pitting edema in BLE) Psychiatric: mood/affect appropriate, cooperative Results - Lab Results 10/21/17 05:05 10/23/17 04:31 Most recent lab results Calcium 8.3 mg/dL (8.4-10.2) L 10/23/17 04:31 Assessment and Plan acute renal failure -most likely cardiorenal syndrome -will hold Lisinopril for now and cont IV lasix -will check urines and protein -will check renal US -renally dose meds -strict I&O -daily weights Acute on chronic non ischemic systolic congestive heart failure -EF 35% -followed by cardiology -on IV lasix and Milrinone HTN -controlled with current meds
[2017-10-23] MEDS: COREG PO SCH ×2 (11:04→22:10)
[2017-10-23] MEDS: K-DUR PO SCH (11:04)
[2017-10-23] MEDS: HALFPRIN EC PO SCH (11:04)
[2017-10-23] MEDS: NEURONTIN PO SCH ×3 (11:04→22:02)
--- NOTE | 2017-10-23 12:19 | Progress Note ---
Assessment and Plan - Patient Problems (1) Acute on chronic systolic heart failure Current Visit: Yes Status: Acute Plan to address problem: Continue medical management including intravenous milrinone for decompensated heart failure and chronic systolic left ventricular dysfunction. Subjective Date of service: 10/23/17 Interval history: Patient is now on intravenous milrinone, diuresis is very brisk. Lower extremity edema is resolving. Objective Vital Signs Temp Pulse Resp BP Pulse Ox 10/23/17 09:39 63 10/23/17 07:23 60 123/76 94 10/23/17 05:59 69 113/79 10/23/17 05:58 20 10/23/17 03:55 98.1 F 64 20 113/79 99 10/22/17 23:46 98.3 F 64 20 120/72 90 10/22/17 23:01 75 10/22/17 21:31 20 10/22/17 21:30 75 124/75 10/22/17 21:29 75 124/75 10/22/17 19:18 98.1 F 74 20 124/75 99 10/22/17 17:38 76 111/79 99 - Physical Examination General: Appears Well, No Apparent Distress HEENT: Positive: PERRL Neck: Positive: neck supple Cardiac: Positive: Reg Rate and Rhythm Lungs: Positive: Decreased Breath Sounds Neuro: Positive: Grossly Intact Abdomen: Positive: Soft Skin: Positive: Clear Extremities: Present: +1 Edema - Labs and Meds Cardiac Enzymes 10/23/17 Range/Units 04:31 AST 16 (5-40) units/L Comprehensive Metabolic Panel 10/23/17 Range/Units 04:31 Sodium 142 (137-145) mmol/L Potassium 4.5 (3.6-5.0) mmol/L Chloride 101.3 (98-107) mmol/L Carbon Dioxide 29 (22-30) mmol/L BUN 33 H (9-20) mg/dL Creatinine 1.8 H (0.8-1.5) mg/dL Glucose 87 (75-100) mg/dL Calcium 8.3 L (8.4-10.2) mg/dL AST 16 (5-40) units/L ALT 15 (7-56) units/L Alkaline Phosphatase 72 (35-129) units/L Total Protein 6.1 L (6.3-8.2) g/dL Albumin 3.0 L (3.9-5) g/dL
[2017-10-23] MEDS: ZESTRIL PO SCH (12:23)
--- NOTE | 2017-10-23 14:32 | Ultrasound Report ---
Renal ultrasound: Renal failure. The right kidney has a length of 11.1 cm and the left is 11.3 cm. Both kidneys appear to be echogenically normal. Of note however is a moderate-appearing right pleural effusion. Small fluid collections are identified around the right kidney, liver and urinary bladder. The bladder is otherwise generally unremarkable. Impression: 1. No renal pathology identified. 2. Right pleural effusion. 3. Small collections of intra-abdominal fluid.
[2017-10-23] MEDS: PRIMACOR 20 MG in D5W 80 ML IV SCH (18:28)
[2017-10-24] MEDS: PERCOCET 5/325 PO PRN ×2 (06:29→17:05)
[2017-10-24] MEDS: APRESOLINE PO SCH ×3 (06:29→21:35)
[2017-10-24] MEDS: HEPARIN SUB-Q SCH ×3 (06:30→21:33)
[2017-10-24] MEDS: LASIX IV SCH ×3 (06:30→17:05)
[2017-10-24] MEDS: PRIMACOR 20 MG in D5W 80 ML IV SCH ×3 (06:31→21:30)
[2017-10-24 06:32] LABS: Basophils % (Auto) 0.8 % (0.0-1.8); Eosinophils % (Auto) 1.7 % (0.0-4.3); Hematocrit 33.6 % (35.5-45.6); Mean Corpuscular HGB Conc 33 % (32-34); Mean Corpuscular Hemoglobin 29 pg (28-32); Mean Corpuscular Volume 88 fl (84-94); Platelet Count 216 K/mm3 (140-440); Red Blood Count 3.83 M/mm3 (3.65-5.03); Red Cell Distribution Width 17.6 % (13.2-15.2); White Blood Count 4.6 K/mm3 (4.5-11.0)
[2017-10-24 06:56] LABS: Anion Gap 14 mmol/L; BUN/Creatinine Ratio 21; Blood Urea Nitrogen 27 mg/dL (9-20); Calcium 8.3 mg/dL (8.4-10.2); Carbon Dioxide 31 mmol/L (22-30); Chloride 99.5 mmol/L (98-107); Glucose 84 mg/dL (75-100); Potassium 4.1 mmol/L (3.6-5.0); Sodium 140 mmol/L (137-145)
--- NOTE | 2017-10-24 09:56 | Progress Note ---
Assessment and Plan - Patient Problems (1) Acute renal failure (ARF) Current Visit: Yes Status: Acute Plan to address problem: Renal function reviewed. Serum creatinine trend down to 1.3 today from 1.8 yesterday Continue to hold Lisinopril for now and continue IV Lasix but will increase frequency to 40 mg IV TID Renal Ultrasound- Echogenically normal. Right Pleural Effusion seen Urine lytes reviewed. Urine protein 30 mg/dl Renally dose meds Strict I&O Obtain daily weights Continue to monitor renal function (2) Acute on chronic systolic heart failure Current Visit: Yes Status: Acute Plan to address problem: Change Lasix to 40 mg IV TID On oral Carvedilol and Milronone drip as per Cardiology (3) Hypertension Current Visit: Yes Status: Acute Plan to address problem: Blood pressures are stable Subjective Date of service: 10/24/17 Principal diagnosis: ARF Interval history: Patient seen sitting up in bed eating a cracker. Patient asked for a plastic bag to place items in. Patient states he has pain to his left groin and leg area. Objective - Vital Signs Vital signs: Vital Signs - 12hr 10/23/17 10/24/17 10/24/17 22:10 00:30 04:27 Temperature 97.5 F L 98.5 F Pulse Rate 70 70 72 Pulse Rate [ Apical] Respiratory 20 18 Rate Blood Pressure 93/60 112/70 123/81 O2 Sat by Pulse 99 100 Oximetry 10/24/17 10/24/17 07:40 08:29 Temperature 98.5 F Pulse Rate 67 79 Pulse Rate [ 79 Apical] Respiratory 18 Rate Blood Pressure 116/74 O2 Sat by Pulse 97 Oximetry - General Appearance General appearance: well-developed, appears stated age EENT: ATNC, PERRL, hearing intact, vision intact Neck: no JVD, supple Respiratory: Present: Decreased Breath Sounds Cardiology: regular, S1S2 Gastrointestinal: normoactive bowel sounds Integumentary: warm and dry Neurologic: alert and oriented x3 Musculoskeletal: other (Has 2+ edema to Bilateral lower extremities) Psychiatric: cooperative - Lab 10/24/17 05:32 10/24/17 05:32 Most recent lab results Calcium 8.3 mg/dL (8.4-10.2) L 10/24/17 05:32 Phosphorus 3.90 mg/dL (2.5-4.5) 10/24/17 05:32
[2017-10-24] MEDS: COREG PO SCH ×2 (10:20→21:37)
[2017-10-24] MEDS: HALFPRIN EC PO SCH (10:20)
[2017-10-24] MEDS: NEURONTIN PO SCH ×3 (10:20→21:00)
--- NOTE | 2017-10-24 13:05 | Progress Note ---
Assessment and Plan - Patient Problems (1) Acute on chronic systolic heart failure Current Visit: Yes Status: Acute Plan to address problem: Continue medical management including intravenous milrinone for decompensated heart failure and chronic systolic left ventricular dysfunction. Subjective Date of service: 10/24/17 Principal diagnosis: ARF Interval history: Patient is comfortable, in no acute distress, looks and feels better. Objective Vital Signs Temp Pulse Pulse Resp BP BP Pulse Ox 10/24/17 11:30 98.5 F 18 10/24/17 11:28 77 84/48 96 10/24/17 08:29 79 79 10/24/17 07:40 98.5 F 67 18 116/74 97 10/24/17 04:27 98.5 F 72 18 123/81 100 10/24/17 00:30 97.5 F L 70 20 112/70 99 10/23/17 22:10 70 93/60 10/23/17 21:35 98 10/23/17 19:41 99.3 F 77 18 110/60 98 10/23/17 17:51 98.3 F 52 L 18 149/106 90 10/23/17 17:06 79 100 - Physical Examination General: Appears Well, No Apparent Distress HEENT: Positive: PERRL Neck: Positive: neck supple Cardiac: Positive: Reg Rate and Rhythm Lungs: Positive: Decreased Breath Sounds Neuro: Positive: Grossly Intact Abdomen: Positive: Soft Skin: Positive: Clear Extremities: Present: +1 Edema - Labs and Meds CBC 10/24/17 Range/Units 05:32 WBC 4.6 (4.5-11.0) K/mm3 RBC 3.83 (3.65-5.03) M/mm3 Hgb 11.0 L (11.8-15.2) gm/dl Hct 33.6 L (35.5-45.6) % Plt Count 216 (140-440) K/mm3 Lymph # 0.6 L (1.2-5.4) K/mm3 [place] # 0.7 (0.0-0.8) K/mm3 Eos # 0.1 (0.0-0.4) K/mm3 Baso # 0.0 (0.0-0.1) K/mm3 Comprehensive Metabolic Panel 10/24/17 Range/Units 05:32 Sodium 140 (137-145) mmol/L Potassium 4.1 (3.6-5.0) mmol/L Chloride 99.5 (98-107) mmol/L Carbon Dioxide 31 H (22-30) mmol/L BUN 27 H (9-20) mg/dL Creatinine 1.3 (0.8-1.5) mg/dL Glucose 84 (75-100) mg/dL Calcium 8.3 L (8.4-10.2) mg/dL
--- NOTE | 2017-10-24 13:47 | Progress Note ---
Assessment and Plan Assessment and plan: Patient is 62-year-old with history of hypertension, cardiomyopathy with EF 35% , gout. He presents with a one-month history of shortness of breath and bilateral leg edema. Patient states leg swelling started with both feet, became worse ascending up and now edema up to upper thighs. In addition he has been having shortness of breath, worse on exertion, worse on climbing stairs and also worse on lying flat. Acute respiratory failure with hypoxia due to acute CHF supplemental Oxygen - Resolving Acute systolic congestive heart failure Echocardiogram EF 35% by [facility] 03/2017 Continue on Diuresis, beta blockers and ACEI/ARB and. IV milrinone Strict I&O's and daily weights Low-sodium/cardiac diet/fluid restriction Closely monitor electrolytes Dilated NICMP EF 35% by [facility] 03/2017 Hypokalemia Resolved Closely monitor electrolytes Elevated Bilirubin. Most likely due to Hepatic congestion. Repeat CMP Hypertensive urgency Continue home antihypertensive medications Closely monitor blood pressure Chronic anemia H&H stable for patient at this point; no blood transfusions needed Closely monitor H&H DVT prophylaxis Heparin Disposition - Per cardiology. History Interval history: Patient was seen and evaluated this morning, shortness of breath is getting better, still has bilateral leg swelling. Hospitalist Physical - Physical exam Narrative exam: Not in cardiopulmonary distress. The patient appeared well nourished and normally developed. Vital signs as documented. Head exam is unremarkable. No scleral icterus . Neck is without jugular venous distension, thyromegaly, or carotid bruits. Lungs are clear to auscultation. Cardiac exam reveals regular rate and Rhythm. First and second heart sounds normal. No murmurs, rubs or gallops. Abdominal exam reveals normal bowel sounds, no masses, no organomegaly and no aortic enlargement. Extremities +2 pedal and pretibial edema. INSURANCE MANAGER: Alert and oriented 3. No focal weakness. - Constitutional Vitals: Temp Pulse Resp BP Pulse Ox 98.5 F 77 18 84/48 96 10/24/17 11:30 10/24/17 11:28 10/24/17 11:30 10/24/17 11:28 10/24/17 11:28 General appearance: Present: no acute distress Results - Labs CBC & Chem 7: 10/24/17 05:32 10/24/17 05:32 Labs: Laboratory Last Values WBC 4.6 K/mm3 (4.5-11.0) 10/24/17 05:32 RBC 3.83 M/mm3 (3.65-5.03) 10/24/17 05:32 Hgb 11.0 gm/dl (11.8-15.2) L 10/24/17 05:32 Hct 33.6 % (35.5-45.6) L 10/24/17 05:32 MCV 88 fl (84-94) 10/24/17 05:32 MCH 29 pg (28-32) 10/24/17 05:32 MCHC 33 % (32-34) 10/24/17 05:32 RDW 17.6 % (13.2-15.2) H 10/24/17 05:32 Plt Count 216 K/mm3 (140-440) 10/24/17 05:32 Lymph % (Auto) 12.7 % (13.4-35.0) L 10/24/17 05:32 [place] % (Auto) 16.0 % (0.0-7.3) H 10/24/17 05:32 Eos % (Auto) 1.7 % (0.0-4.3) 10/24/17 05:32 Baso % (Auto) 0.8 % (0.0-1.8) 10/24/17 05:32 Lymph # 0.6 K/mm3 (1.2-5.4) L 10/24/17 05:32 [place] # 0.7 K/mm3 (0.0-0.8) 10/24/17 05:32 Eos # 0.1 K/mm3 (0.0-0.4) 10/24/17 05:32 Baso # 0.0 K/mm3 (0.0-0.1) 10/24/17 05:32 Seg Neutrophils % 68.8 % (40.0-70.0) 10/24/17 05:32 Seg Neutrophils # 3.2 K/mm3 (1.8-7.7) 10/24/17 05:32 PT 16.4 Sec. (12.2-14.9) H 10/20/17 10:14 INR 1.26 (0.87-1.13) H 10/20/17 10:14 APTT 29.6 Sec. (24.2-36.6) 10/20/17 10:14 Sodium 140 mmol/L (137-145) 10/24/17 05:32 Potassium 4.1 mmol/L (3.6-5.0) 10/24/17 05:32 Chloride 99.5 mmol/L (98-107) 10/24/17 05:32 Carbon Dioxide 31 mmol/L (22-30) H 10/24/17 05:32 Anion Gap 14 mmol/L 10/24/17 05:32 BUN 27 mg/dL (9-20) H 10/24/17 05:32 Creatinine 1.3 mg/dL (0.8-1.5) 10/24/17 05:32 Estimated GFR > 60 ml/min 10/24/17 05:32 BUN/Creatinine Ratio 21 % 10/24/17 05:32 Glucose 84 mg/dL (75-100) 10/24/17 05:32 Calcium 8.3 mg/dL (8.4-10.2) L 10/24/17 05:32 Phosphorus 3.90 mg/dL (2.5-4.5) 10/24/17 05:32 Total Bilirubin 1.70 mg/dL (0.1-1.2) H 10/23/17 04:31 AST 16 units/L (5-40) 10/23/17 04:31 ALT 15 units/L (7-56) 10/23/17 04:31 Alkaline Phosphatase 72 units/L (35-129) 10/23/17 04:31 NT-Pro-B Natriuret Pep 5955 pg/mL (0-900) H 10/20/17 10:14 Total Protein 6.1 g/dL (6.3-8.2) L 10/23/17 04:31 Albumin 3.0 g/dL (3.9-5) L 10/23/17 04:31 Albumin/Globulin Ratio 1.0 % 10/23/17 04:31 Urine Color Yellow (Yellow) 10/20/17 15:45 Urine Turbidity Clear (Clear) 10/20/17 15:45 Urine pH 6.0 (5.0-7.0) 10/20/17 15:45 Ur Specific [place] 1.016 (1.003-1.030) 10/20/17 15:45 Urine Protein 30 mg/dl mg/dL (Negative) 10/20/17 15:45 Urine Glucose (UA) Neg mg/dL (Negative) 10/20/17 15:45 Urine Ketones Neg mg/dL (Negative) 10/20/17 15:45 Urine Blood Neg (Negative) 10/20/17 15:45 Urine Nitrite Neg (Negative) 10/20/17 15:45 Urine Bilirubin Neg (Negative) 10/20/17 15:45 Urine Urobilinogen 4.0 mg/dL (<2.0) 10/20/17 15:45 Ur Leukocyte Esterase Neg (Negative) 10/20/17 15:45 Urine WBC (Auto) < 1.0 /HPF (0.0-6.0) 10/20/17 15:45 Urine RBC (Auto) 1.0 /HPF (0.0-6.0) 10/20/17 15:45 Urine Bacteria (Auto) 1+ /HPF (Negative) 10/20/17 15:45 Hyaline Casts 3 /LPF 10/20/17 15:45
[2017-10-25 06:10] LABS: Hematocrit 33.2 % (35.5-45.6); Hemoglobin 10.6 gm/dl (11.8-15.2); Mean Corpuscular HGB Conc 32 % (32-34); Mean Corpuscular Hemoglobin 28 pg (28-32); Mean Corpuscular Volume 88 fl (84-94); Platelet Count 230 K/mm3 (140-440); Red Blood Count 3.75 M/mm3 (3.65-5.03); Red Cell Distribution Width 17.6 % (13.2-15.2)
[2017-10-25 06:27] LABS: Anion Gap 14 mmol/L; BUN/Creatinine Ratio 22; Blood Urea Nitrogen 29 mg/dL (9-20); Calcium 7.9 mg/dL (8.4-10.2); Carbon Dioxide 30 mmol/L (22-30); Chloride 95.4 mmol/L (98-107); Glucose 103 mg/dL (75-100); Potassium 3.8 mmol/L (3.6-5.0); Sodium 136 mmol/L (137-145)
[2017-10-25] MEDS: APRESOLINE PO SCH ×3 (06:55→22:16)
[2017-10-25] MEDS: LASIX IV SCH ×3 (06:55→17:36)
[2017-10-25] MEDS: HEPARIN SUB-Q SCH ×3 (07:00→22:16)
[2017-10-25 08:18] LABS: Anisocytosis 1+; Basophils % (Manual) 0 % (0.0-1.8); Blastocytes % (Manual) 0 %; Schistocytes Rare; Target Cells Few
[2017-10-25 08:19] LABS: Diff Status Complete; Macrocytosis Few
[2017-10-25] MEDS: HALFPRIN EC PO SCH (10:18)
[2017-10-25] MEDS: COREG PO SCH ×2 (10:19→22:14)
[2017-10-25] MEDS: PERCOCET 5/325 PO PRN ×2 (10:19→15:00)
[2017-10-25] MEDS: NEURONTIN PO SCH ×3 (10:19→21:05)
--- NOTE | 2017-10-25 11:46 | Progress Note ---
Assessment and Plan - Patient Problems (1) Acute on chronic systolic heart failure Current Visit: Yes Status: Acute Plan to address problem: Continue medical management including intravenous milrinone for decompensated heart failure and chronic systolic left ventricular dysfunction. We will add metolazone and spironolactone to diuretic medical regimen. Subjective Date of service: 10/25/17 Principal diagnosis: ARF Interval history: Patient is comfortable, in no acute distress. Still has 2+ lower extremity edema, as well as scrotal edema. Objective Vital Signs Temp Pulse Pulse Resp BP BP Pulse Ox 10/25/17 07:52 85 85 10/25/17 07:46 98 10/25/17 06:55 79 122/76 10/25/17 05:12 97.9 F 83 18 122/76 100 10/24/17 23:35 98.0 F 83 18 115/72 98 10/24/17 22:00 83 10/24/17 21:37 63 95/49 10/24/17 21:35 63 95/49 10/24/17 20:38 97 10/24/17 19:48 98.2 F 63 18 95/49 98 10/24/17 16:50 99.2 F 87 18 122/76 98 10/24/17 15:52 96 10/24/17 13:40 104/68 - Physical Examination General: Appears Well, No Apparent Distress HEENT: Positive: PERRL Neck: Positive: neck supple Cardiac: Positive: Reg Rate and Rhythm Lungs: Positive: Decreased Breath Sounds Neuro: Positive: Grossly Intact Abdomen: Positive: Soft Skin: Positive: Clear Extremities: Present: +2 Edema - Labs and Meds CBC 10/25/17 Range/Units 05:38 WBC 5.0 (4.5-11.0) K/mm3 RBC 3.75 (3.65-5.03) M/mm3 Hgb 10.6 L (11.8-15.2) gm/dl Hct 33.2 L (35.5-45.6) % Plt Count 230 (140-440) K/mm3 Comprehensive Metabolic Panel 10/25/17 Range/Units 05:38 Sodium 136 L (137-145) mmol/L Potassium 3.8 (3.6-5.0) mmol/L Chloride 95.4 L (98-107) mmol/L Carbon Dioxide 30 (22-30) mmol/L BUN 29 H (9-20) mg/dL Creatinine 1.3 (0.8-1.5) mg/dL Glucose 103 H (75-100) mg/dL Calcium 7.9 L (8.4-10.2) mg/dL
[2017-10-25] MEDS: ALDACTONE PO SCH (13:54)
[2017-10-25] MEDS: ZAROXOLYN PO SCH (13:55)
--- NOTE | 2017-10-25 15:36 | Progress Note ---
Assessment and Plan Assessment and plan: Patient is 62-year-old with history of hypertension, cardiomyopathy with EF 35% , gout. He presents with a one-month history of shortness of breath and bilateral leg edema. Patient states leg swelling started with both feet, became worse ascending up and now edema up to upper thighs. In addition he has been having shortness of breath, worse on exertion, worse on climbing stairs and also worse on lying flat. Acute respiratory failure with hypoxia due to acute CHF supplemental Oxygen - Resolving Acute systolic congestive heart failure Echocardiogram EF 35% by [facility] 03/2017 Iv lasix is increased 3x a day, added spironolactone and metolazone, continue IV milrinone Strict I&O's and daily weights Low-sodium/cardiac diet/fluid restriction Closely monitor electrolytes Dilated NICMP EF 35% by [facility] 03/2017 Hypokalemia Resolved Closely monitor electrolytes Elevated Bilirubin. Most likely due to Hepatic congestion. Repeat CMP Hypertensive urgency Continue home antihypertensive medications Closely monitor blood pressure Chronic anemia H&H stable for patient at this point; no blood transfusions needed DVT prophylaxis Heparin Disposition - continue inpatient care, patient still has significant swelling, he needs to be continued with IV diuresis. History Interval history: Patient was seen and evaluated this morning, shortness of breath is getting better, still has bilateral leg swelling and swelling of the penis. Hospitalist Physical - Physical exam Narrative exam: Not in cardiopulmonary distress. The patient appeared well nourished and normally developed. Vital signs as documented. Head exam is unremarkable. No scleral icterus . Neck is without jugular venous distension, thyromegaly, or carotid bruits. Lungs are clear to auscultation. Cardiac exam reveals regular rate and Rhythm. First and second heart sounds normal. No murmurs, rubs or gallops. Abdominal exam reveals normal bowel sounds, no masses, no organomegaly and no aortic enlargement. Extremities +2 pedal and pretibial edema. Swelling/edema of the penis. CUT TO LENGTH OPERATOR: Alert and oriented 3. No focal weakness. - Constitutional Vitals: Temp Pulse Resp BP Pulse Ox 97.9 F 85 18 122/76 98 10/25/17 05:12 10/25/17 07:52 10/25/17 05:12 10/25/17 06:55 10/25/17 07:46 General appearance: Present: no acute distress Results - Labs CBC & Chem 7: 10/25/17 05:38 10/25/17 05:38 Labs: Laboratory Last Values WBC 5.0 K/mm3 (4.5-11.0) 10/25/17 05:38 RBC 3.75 M/mm3 (3.65-5.03) 10/25/17 05:38 Hgb 10.6 gm/dl (11.8-15.2) L 10/25/17 05:38 Hct 33.2 % (35.5-45.6) L 10/25/17 05:38 MCV 88 fl (84-94) 10/25/17 05:38 MCH 28 pg (28-32) 10/25/17 05:38 MCHC 32 % (32-34) 10/25/17 05:38 RDW 17.6 % (13.2-15.2) H 10/25/17 05:38 Plt Count 230 K/mm3 (140-440) 10/25/17 05:38 Lymph % (Auto) 12.7 % (13.4-35.0) L 10/24/17 05:32 [place] % (Auto) Training Facilitator 10/25/17 05:38 Eos % (Auto) 1.7 % (0.0-4.3) 10/24/17 05:32 Baso % (Auto) 0.8 % (0.0-1.8) 10/24/17 05:32 Lymph # 0.6 K/mm3 (1.2-5.4) L 10/24/17 05:32 [place] # 0.7 K/mm3 (0.0-0.8) 10/24/17 05:32 Eos # 0.1 K/mm3 (0.0-0.4) 10/24/17 05:32 Baso # 0.0 K/mm3 (0.0-0.1) 10/24/17 05:32 Add Manual Diff Complete 10/25/17 05:38 Total Counted 100 10/25/17 05:38 Seg Neutrophils % 68.8 % (40.0-70.0) 10/24/17 05:32 Seg Neuts % (Manual) 80.0 % (40.0-70.0) H 10/25/17 05:38 Band Neutrophils % 1.0 % 10/25/17 05:38 Lymphocytes % (Manual) 6.0 % (13.4-35.0) L 10/25/17 05:38 Reactive Lymphs % (Man) 1.0 % 10/25/17 05:38 Monocytes % (Manual) 11.0 % (0.0-7.3) H 10/25/17 05:38 Eosinophils % (Manual) 1.0 % (0.0-4.3) 10/25/17 05:38 Basophils % (Manual) 0 % (0.0-1.8) 10/25/17 05:38 Metamyelocytes % 0 % 10/25/17 05:38 Myelocytes % 0 % 10/25/17 05:38 Promyelocytes % 0 % 10/25/17 05:38 Blast Cells % 0 % 10/25/17 05:38 Nucleated RBC % Not Reportable 10/25/17 05:38 Seg Neutrophils # 3.2 K/mm3 (1.8-7.7) 10/24/17 05:32 Seg Neutrophils # Man 4.0 K/mm3 (1.8-7.7) 10/25/17 05:38 Band Neutrophils # 0.1 K/mm3 10/25/17 05:38 Lymphocytes # (Manual) 0.3 K/mm3 (1.2-5.4) L 10/25/17 05:38 Abs React Lymphs (Man) 0.1 K/mm3 10/25/17 05:38 Monocytes # (Manual) 0.6 K/mm3 (0.0-0.8) 10/25/17 05:38 Eosinophils # (Manual) 0.1 K/mm3 (0.0-0.4) 10/25/17 05:38 Basophils # (Manual) 0.0 K/mm3 (0.0-0.1) 10/25/17 05:38 Metamyelocytes # 0.0 K/mm3 10/25/17 05:38 Myelocytes # 0.0 K/mm3 10/25/17 05:38 Promyelocytes # 0.0 K/mm3 10/25/17 05:38 Blast Cells # 0.0 K/mm3 10/25/17 05:38 WBC Morphology Not Reportable 10/25/17 05:38 Hypersegmented Neuts Not Reportable 10/25/17 05:38 Hyposegmented Neuts Not Reportable 10/25/17 05:38 Hypogranular Neuts Not Reportable 10/25/17 05:38 Smudge Cells Not Reportable 10/25/17 05:38 Toxic Granulation Not Reportable 10/25/17 05:38 Toxic Vacuolation Not Reportable 10/25/17 05:38 Dohle Bodies Not Reportable 10/25/17 05:38 Pelger-Huet Anomaly Not Reportable 10/25/17 05:38 Little Rods Not Reportable 10/25/17 05:38 Platelet Estimate Appears normal 10/25/17 05:38 Clumped Platelets Not Reportable 10/25/17 05:38 Plt Clumps, EDTA Not Reportable 10/25/17 05:38 Large Platelets Not Reportable 10/25/17 05:38 Giant Platelets Not Reportable 10/25/17 05:38 Platelet Satelliting Not Reportable 10/25/17 05:38 Plt Morphology Comment Not Reportable 10/25/17 05:38 RBC Morphology Not Reportable 10/25/17 05:38 Dimorphic RBCs Not Reportable 10/25/17 05:38 Polychromasia Not Reportable 10/25/17 05:38 Hypochromasia Not Reportable 10/25/17 05:38 Poikilocytosis Not Reportable 10/25/17 05:38 Anisocytosis 1+ 10/25/17 05:38 Microcytosis Not Reportable 10/25/17 05:38 Macrocytosis Few 10/25/17 05:38 Spherocytes Not Reportable 10/25/17 05:38 Pappenheimer Bodies Not Reportable 10/25/17 05:38 Sickle Cells Not Reportable 10/25/17 05:38 Target Cells Few 10/25/17 05:38 Tear Drop Cells Not Reportable 10/25/17 05:38 Ovalocytes Not Reportable 10/25/17 05:38 Helmet Cells Not Reportable 10/25/17 05:38 [place] Bodies Not Reportable 10/25/17 05:38 [place] Rings Not Reportable 10/25/17 05:38 Danni Cells Not Reportable 10/25/17 05:38 Bite Cells Not Reportable 10/25/17 05:38 Crenated Cell Not Reportable 10/25/17 05:38 Elliptocytes Not Reportable 10/25/17 05:38 Acanthocytes (Spur) Not Reportable 10/25/17 05:38 Rouleaux Not Reportable 10/25/17 05:38 Hemoglobin C Crystals Not Reportable 10/25/17 05:38 Schistocytes Rare 10/25/17 05:38 Malaria parasites Not Reportable 10/25/17 05:38 Valeriy Bodies Not Reportable 10/25/17 05:38 Hem Pathologist Commnt No 10/25/17 05:38 PT 16.4 Sec. (12.2-14.9) H 10/20/17 10:14 INR 1.26 (0.87-1.13) H 10/20/17 10:14 APTT 29.6 Sec. (24.2-36.6) 10/20/17 10:14 Sodium 136 mmol/L (137-145) L 10/25/17 05:38 Potassium 3.8 mmol/L (3.6-5.0) 10/25/17 05:38 Chloride 95.4 mmol/L (98-107) L 10/25/17 05:38 Carbon Dioxide 30 mmol/L (22-30) 10/25/17 05:38 Anion Gap 14 mmol/L 10/25/17 05:38 BUN 29 mg/dL (9-20) H 10/25/17 05:38 Creatinine 1.3 mg/dL (0.8-1.5) 10/25/17 05:38 Estimated GFR > 60 ml/min 10/25/17 05:38 BUN/Creatinine Ratio 22 % 10/25/17 05:38 Glucose 103 mg/dL (75-100) H 10/25/17 05:38 Calcium 7.9 mg/dL (8.4-10.2) L 10/25/17 05:38 Phosphorus 3.30 mg/dL (2.5-4.5) 10/25/17 05:38 Total Bilirubin 1.70 mg/dL (0.1-1.2) H 10/23/17 04:31 AST 16 units/L (5-40) 10/23/17 04:31 ALT 15 units/L (7-56) 10/23/17 04:31 Alkaline Phosphatase 72 units/L (35-129) 10/23/17 04:31 NT-Pro-B Natriuret Pep 5955 pg/mL (0-900) H 10/20/17 10:14 Total Protein 6.1 g/dL (6.3-8.2) L 10/23/17 04:31 Albumin 3.0 g/dL (3.9-5) L 10/23/17 04:31 Albumin/Globulin Ratio 1.0 % 10/23/17 04:31 Urine Color Yellow (Yellow) 10/20/17 15:45 Urine Turbidity Clear (Clear) 10/20/17 15:45 Urine pH 6.0 (5.0-7.0) 10/20/17 15:45 Ur Specific [place] 1.016 (1.003-1.030) 10/20/17 15:45 Urine Protein 30 mg/dl mg/dL (Negative) 10/20/17 15:45 Urine Glucose (UA) Neg mg/dL (Negative) 10/20/17 15:45 Urine Ketones Neg mg/dL (Negative) 10/20/17 15:45 Urine Blood Neg (Negative) 10/20/17 15:45 Urine Nitrite Neg (Negative) 10/20/17 15:45 Urine Bilirubin Neg (Negative) 10/20/17 15:45 Urine Urobilinogen 4.0 mg/dL (<2.0) 10/20/17 15:45 Ur Leukocyte Esterase Neg (Negative) 10/20/17 15:45 Urine WBC (Auto) < 1.0 /HPF (0.0-6.0) 10/20/17 15:45 Urine RBC (Auto) 1.0 /HPF (0.0-6.0) 10/20/17 15:45 Urine Bacteria (Auto) 1+ /HPF (Negative) 10/20/17 15:45 Hyaline Casts 3 /LPF 10/20/17 15:45
--- NOTE | 2017-10-25 15:44 | Progress Note ---
Assessment and Plan - Patient Problems (1) Acute renal failure (ARF) Current Visit: Yes Status: Acute Plan to address problem: Renal function reviewed. Serum creatinine stable at 1.3 today, good urine output noted-1050 ml On Lasix 40 mg IV TID. Metolazone 5 mg po daily added to regimen today. Renally dose meds Avoid Nephrotoxins Strict I&O Obtain daily weights Continue to monitor renal function and continue diuresis (2) Acute on chronic systolic heart failure Current Visit: Yes Status: Acute Plan to address problem: On Lasix 40 mg IV TID and Metolazone 5 mg po daily for diuresis On oral Carvedilol and Milronone drip As per Cardiology (3) Hypertension Current Visit: Yes Status: Acute Plan to address problem: Blood pressures are stable Subjective Date of service: 10/25/17 Principal diagnosis: ARF Interval history: Patient seen sitting up in bed. States doing ok. Objective - Vital Signs Vital signs: Vital Signs - 12hr 10/25/17 10/25/17 10/25/17 05:12 06:55 07:46 Temperature 97.9 F Pulse Rate 83 79 Pulse Rate [ Apical] Respiratory 18 Rate Blood Pressure 122/76 122/76 O2 Sat by Pulse 100 98 Oximetry 10/25/17 07:52 Temperature Pulse Rate 85 Pulse Rate [ 85 Apical] Respiratory Rate Blood Pressure O2 Sat by Pulse Oximetry - General Appearance General appearance: well-developed, appears stated age EENT: ATNC, PERRL, hearing intact, vision intact Neck: no JVD, supple Respiratory: Present: Decreased Breath Sounds Cardiology: regular, S1S2 Gastrointestinal: normoactive bowel sounds Integumentary: warm and dry Neurologic: alert and oriented x3 Musculoskeletal: joint swelling, other (positive edema) Psychiatric: cooperative - Lab 10/25/17 05:38 10/25/17 05:38 Most recent lab results Calcium 7.9 mg/dL (8.4-10.2) L 10/25/17 05:38 Phosphorus 3.30 mg/dL (2.5-4.5) 10/25/17 05:38
[2017-10-25] MEDS: PRIMACOR 20 MG in D5W 80 ML IV SCH (23:35)
[2017-10-26] MEDS: PERCOCET 5/325 PO PRN ×3 (05:08→14:20)
[2017-10-26] MEDS: HEPARIN SUB-Q SCH ×3 (05:11→22:50)
[2017-10-26] MEDS: LASIX IV SCH ×3 (05:11→19:27)
[2017-10-26] MEDS: APRESOLINE PO SCH ×3 (05:12→22:50)
[2017-10-26 05:38] LABS: Hematocrit 32.2 % (35.5-45.6); Hemoglobin 10.5 gm/dl (11.8-15.2); Mean Corpuscular HGB Conc 33 % (32-34); Mean Corpuscular Hemoglobin 29 pg (28-32); Mean Corpuscular Volume 88 fl (84-94); Platelet Count 228 K/mm3 (140-440); Red Blood Count 3.66 M/mm3 (3.65-5.03); White Blood Count 4.5 K/mm3 (4.5-11.0)
[2017-10-26 06:17] LABS: Anion Gap 13 mmol/L; BUN/Creatinine Ratio 22; Blood Urea Nitrogen 26 mg/dL (9-20); Calcium 8.4 mg/dL (8.4-10.2); Carbon Dioxide 32 mmol/L (22-30); Chloride 93.7 mmol/L (98-107); Glucose 100 mg/dL (75-100); Sodium 135 mmol/L (137-145)
[2017-10-26 06:31] LABS: Anisocytosis 1+; Basophils % (Manual) 0 % (0.0-1.8); Blastocytes % (Manual) 0 %; Diff Status Complete; Platelet Estimate Consistent w Auto; Schistocytes Rare
[2017-10-26] MEDS: PRIMACOR 20 MG in D5W 80 ML IV SCH ×2 (08:15→18:26)
[2017-10-26] MEDS: COREG PO SCH ×2 (10:06→22:50)
[2017-10-26] MEDS: ALDACTONE PO SCH (10:06)
[2017-10-26] MEDS: HALFPRIN EC PO SCH (10:06)
[2017-10-26] MEDS: NEURONTIN PO SCH ×3 (10:06→21:15)
[2017-10-26] MEDS: ZAROXOLYN PO SCH (10:06)
--- NOTE | 2017-10-26 10:28 | Progress Note ---
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 Subjective Date of service: 10/26/17 Principal diagnosis: ARF Interval history: Patient has no complaints. Lower extremity edema is slowly improving. Objective Vital Signs Temp Pulse Resp BP BP Pulse Ox 10/26/17 08:43 78 10/26/17 08:41 99.8 F H 85 18 116/68 97 10/26/17 05:12 77 119/70 10/26/17 04:30 87 98 10/25/17 23:33 97.9 F 78 18 99/57 93 10/25/17 22:16 108/68 10/25/17 22:14 77 108/68 10/25/17 22:00 76 10/25/17 19:47 98.2 F 77 18 108/68 95 10/25/17 16:39 98.2 F 67 20 126/79 96 10/25/17 13:44 98.5 F 18 10/25/17 13:40 98.5 F 78 18 123/74 94 - Physical Examination General: No Apparent Distress HEENT: Positive: PERRL Cardiac: Positive: Reg Rate and Rhythm Lungs: Positive: Decreased Breath Sounds Neuro: Positive: Grossly Intact Extremities: Present: +2 Edema - Labs and Meds CBC 10/26/17 Range/Units 04:27 WBC 4.5 (4.5-11.0) K/mm3 RBC 3.66 (3.65-5.03) M/mm3 Hgb 10.5 L (11.8-15.2) gm/dl Hct 32.2 L (35.5-45.6) % Plt Count 228 (140-440) K/mm3 Comprehensive Metabolic Panel 10/26/17 Range/Units 04:27 Sodium 135 L (137-145) mmol/L Potassium 4.0 (3.6-5.0) mmol/L Chloride 93.7 L (98-107) mmol/L Carbon Dioxide 32 H (22-30) mmol/L BUN 26 H (9-20) mg/dL Creatinine 1.2 (0.8-1.5) mg/dL Glucose 100 (75-100) mg/dL Calcium 8.4 (8.4-10.2) mg/dL
--- NOTE | 2017-10-26 12:15 | Progress Note ---
Assessment and Plan (1) Acute renal failure (ARF) Current Visit: Yes Status: Acute Plan to address problem: Cr trending down. On Lasix 40 mg IV TID. Metolazone 5 mg po daily added to regimen yesterday. Renally dose meds Avoid Nephrotoxins Strict I&O Obtain daily weights Continue to monitor renal function and continue diuresis, Leg swelling slowly improving. (2) Acute on chronic systolic heart failure Current Visit: Yes Status: Acute Plan to address problem: On Lasix 40 mg IV TID and Metolazone 5 mg po daily for diuresis. Continue On oral Carvedilol and Milronone drip As per Cardiology (3) Hypertension Current Visit: Yes Status: Acute Plan to address problem: Blood pressures are stable. (4) Anemia, normocytic Current Visit: Yes Status: Acute Plan to address problem: Transfusion PRN per primary (5) Neuropathy Current Visit: Yes Status: chronic Plan to address problem: On Gabapentin. Subjective Date of service: 10/26/17 Principal diagnosis: ARF Interval history: Denies CP/SHOB. Feels leg swelling improving. Making urine. On Milrinone. Objective - Exam Narrative Exam: General appearance: well-developed, appears stated age EENT: ATNC, PERRL, hearing intact, vision intact Neck: no JVD, supple Respiratory: Present: Decreased Breath Sounds Cardiology: regular, S1S2 Gastrointestinal: normoactive bowel sounds Integumentary: warm and dry Neurologic: alert and oriented x3 Musculoskeletal: 1-2+ BLE edema Psychiatric: cooperative - Vital Signs Vital signs: Vital Signs - 12hr 10/26/17 10/26/17 10/26/17 04:30 05:12 08:41 Temperature 99.8 F H Pulse Rate 87 77 85 Respiratory 18 Rate Blood Pressure 119/70 Blood Pressure 116/68 [Right] O2 Sat by Pulse 98 97 Oximetry 10/26/17 08:43 Temperature Pulse Rate 78 Respiratory Rate Blood Pressure Blood Pressure [Right] O2 Sat by Pulse Oximetry - Lab 10/26/17 04:27 10/26/17 04:27 Most recent lab results Calcium 8.4 mg/dL (8.4-10.2) 10/26/17 04:27 Phosphorus 2.90 mg/dL (2.5-4.5) 10/26/17 04:27
--- NOTE | 2017-10-26 14:45 | Progress Note ---
Assessment and Plan Assessment and plan: Patient is 62-year-old with history of hypertension, cardiomyopathy with EF 35% , gout. He presents with a one-month history of shortness of breath and bilateral leg edema. Patient states leg swelling started with both feet, became worse ascending up and now edema up to upper thighs. In addition he has been having shortness of breath, worse on exertion, worse on climbing stairs and also worse on lying flat. Acute respiratory failure with hypoxia due to acute CHF supplemental Oxygen - Resolving Acute systolic congestive heart failure Echocardiogram EF 35% by [facility] 03/2017 Iv lasix is increased 3x a day, added spironolactone and metolazone, continue IV milrinone Strict I&O's and daily weights Low-sodium/cardiac diet/fluid restriction Closely monitor electrolytes Penile swelling is getting better Dilated NICMP EF 35% by [facility] 03/2017 Hypokalemia Resolved Closely monitor electrolytes Elevated Bilirubin. Most likely due to Hepatic congestion. Repeat CMP Hypertensive urgency Continue home antihypertensive medications Closely monitor blood pressure Chronic anemia H&H stable for patient at this point; no blood transfusions needed DVT prophylaxis Heparin Disposition - continue inpatient care, patient still has significant swelling, he needs to be continued with IV diuresis. History Interval history: Patient was seen and evaluated this morning, shortness of breath is getting better, the scrotal swelling is getting better. Hospitalist Physical - Physical exam Narrative exam: Not in cardiopulmonary distress. The patient appeared well nourished and normally developed. Vital signs as documented. Head exam is unremarkable. No scleral icterus . Neck is without jugular venous distension, thyromegaly, or carotid bruits. Lungs are clear to auscultation. Cardiac exam reveals regular rate and Rhythm. First and second heart sounds normal. No murmurs, rubs or gallops. Abdominal exam reveals normal bowel sounds, no masses, no organomegaly and no aortic enlargement. Extremities +2 pedal and pretibial edema. Swelling/edema of the penis. [employer]: Alert and oriented 3. No focal weakness. - Constitutional Vitals: Temp Pulse Resp BP Pulse Ox 99.8 F H 78 18 116/68 97 10/26/17 08:41 10/26/17 08:43 10/26/17 08:41 10/26/17 08:41 10/26/17 08:41 General appearance: Present: no acute distress Results - Labs CBC & Chem 7: 10/26/17 04:27 10/26/17 04:27 Labs: Laboratory Last Values WBC 4.5 K/mm3 (4.5-11.0) 10/26/17 04:27 RBC 3.66 M/mm3 (3.65-5.03) 10/26/17 04:27 Hgb 10.5 gm/dl (11.8-15.2) L 10/26/17 04:27 Hct 32.2 % (35.5-45.6) L 10/26/17 04:27 MCV 88 fl (84-94) 10/26/17 04:27 MCH 29 pg (28-32) 10/26/17 04:27 MCHC 33 % (32-34) 10/26/17 04:27 RDW 18.0 % (13.2-15.2) H 10/26/17 04:27 Plt Count 228 K/mm3 (140-440) 10/26/17 04:27 Lymph % (Auto) 12.7 % (13.4-35.0) L 10/24/17 05:32 [place] % (Auto) Tube Sizer And Cutter Operator 10/26/17 04:27 Eos % (Auto) 1.7 % (0.0-4.3) 10/24/17 05:32 Baso % (Auto) 0.8 % (0.0-1.8) 10/24/17 05:32 Lymph # 0.6 K/mm3 (1.2-5.4) L 10/24/17 05:32 [place] # 0.7 K/mm3 (0.0-0.8) 10/24/17 05:32 Eos # 0.1 K/mm3 (0.0-0.4) 10/24/17 05:32 Baso # 0.0 K/mm3 (0.0-0.1) 10/24/17 05:32 Add Manual Diff Complete 10/26/17 04:27 Total Counted 100 10/26/17 04:27 Seg Neutrophils % 68.8 % (40.0-70.0) 10/24/17 05:32 Seg Neuts % (Manual) 67.0 % (40.0-70.0) 10/26/17 04:27 Band Neutrophils % 0 % 10/26/17 04:27 Lymphocytes % (Manual) 14.0 % (13.4-35.0) 10/26/17 04:27 Reactive Lymphs % (Man) 0 % 10/26/17 04:27 Monocytes % (Manual) 17.0 % (0.0-7.3) H 10/26/17 04:27 Eosinophils % (Manual) 2.0 % (0.0-4.3) 10/26/17 04:27 Basophils % (Manual) 0 % (0.0-1.8) 10/26/17 04:27 Metamyelocytes % 0 % 10/26/17 04:27 Myelocytes % 0 % 10/26/17 04:27 Promyelocytes % 0 % 10/26/17 04:27 Blast Cells % 0 % 10/26/17 04:27 Nucleated RBC % Not Reportable 10/26/17 04:27 Seg Neutrophils # 3.2 K/mm3 (1.8-7.7) 10/24/17 05:32 Seg Neutrophils # Man 3.0 K/mm3 (1.8-7.7) 10/26/17 04:27 Band Neutrophils # 0.0 K/mm3 10/26/17 04:27 Lymphocytes # (Manual) 0.6 K/mm3 (1.2-5.4) L 10/26/17 04:27 Abs React Lymphs (Man) 0.0 K/mm3 10/26/17 04:27 Monocytes # (Manual) 0.8 K/mm3 (0.0-0.8) 10/26/17 04:27 Eosinophils # (Manual) 0.1 K/mm3 (0.0-0.4) 10/26/17 04:27 Basophils # (Manual) 0.0 K/mm3 (0.0-0.1) 10/26/17 04:27 Metamyelocytes # 0.0 K/mm3 10/26/17 04:27 Myelocytes # 0.0 K/mm3 10/26/17 04:27 Promyelocytes # 0.0 K/mm3 10/26/17 04:27 Blast Cells # 0.0 K/mm3 10/26/17 04:27 WBC Morphology Not Reportable 10/26/17 04:27 Hypersegmented Neuts Not Reportable 10/26/17 04:27 Hyposegmented Neuts Not Reportable 10/26/17 04:27 Hypogranular Neuts Not Reportable 10/26/17 04:27 Smudge Cells Not Reportable 10/26/17 04:27 Toxic Granulation Not Reportable 10/26/17 04:27 Toxic Vacuolation Not Reportable 10/26/17 04:27 Dohle Bodies Not Reportable 10/26/17 04:27 Pelger-Huet Anomaly Not Reportable 10/26/17 04:27 Little Rods Not Reportable 10/26/17 04:27 Platelet Estimate Consistent w auto 10/26/17 04:27 Clumped Platelets Not Reportable 10/26/17 04:27 Plt Clumps, EDTA Not Reportable 10/26/17 04:27 Large Platelets Not Reportable 10/26/17 04:27 Giant Platelets Not Reportable 10/26/17 04:27 Platelet Satelliting Not Reportable 10/26/17 04:27 Plt Morphology Comment Not Reportable 10/26/17 04:27 RBC Morphology Not Reportable 10/26/17 04:27 Dimorphic RBCs Not Reportable 10/26/17 04:27 Polychromasia Not Reportable 10/26/17 04:27 Hypochromasia Not Reportable 10/26/17 04:27 Poikilocytosis Not Reportable 10/26/17 04:27 Anisocytosis 1+ 10/26/17 04:27 Microcytosis Not Reportable 10/26/17 04:27 Macrocytosis Not Reportable 10/26/17 04:27 Spherocytes Not Reportable 10/26/17 04:27 Pappenheimer Bodies Not Reportable 10/26/17 04:27 Sickle Cells Not Reportable 10/26/17 04:27 Target Cells Not Reportable 10/26/17 04:27 Tear Drop Cells Not Reportable 10/26/17 04:27 Ovalocytes Not Reportable 10/26/17 04:27 Helmet Cells Not Reportable 10/26/17 04:27 [place] Bodies Not Reportable 10/26/17 04:27 [place] Rings Not Reportable 10/26/17 04:27 Danni Cells Not Reportable 10/26/17 04:27 Bite Cells Not Reportable 10/26/17 04:27 Crenated Cell Not Reportable 10/26/17 04:27 Elliptocytes Not Reportable 10/26/17 04:27 Acanthocytes (Spur) Not Reportable 10/26/17 04:27 Rouleaux Not Reportable 10/26/17 04:27 Hemoglobin C Crystals Not Reportable 10/26/17 04:27 Schistocytes Rare 10/26/17 04:27 Malaria parasites Not Reportable 10/26/17 04:27 Valeriy Bodies Not Reportable 10/26/17 04:27 Hem Pathologist Commnt No 10/26/17 04:27 PT 16.4 Sec. (12.2-14.9) H 10/20/17 10:14 INR 1.26 (0.87-1.13) H 10/20/17 10:14 APTT 29.6 Sec. (24.2-36.6) 10/20/17 10:14 Sodium 135 mmol/L (137-145) L 10/26/17 04:27 Potassium 4.0 mmol/L (3.6-5.0) 10/26/17 04:27 Chloride 93.7 mmol/L (98-107) L 10/26/17 04:27 Carbon Dioxide 32 mmol/L (22-30) H 10/26/17 04:27 Anion Gap 13 mmol/L 10/26/17 04:27 BUN 26 mg/dL (9-20) H 10/26/17 04:27 Creatinine 1.2 mg/dL (0.8-1.5) 10/26/17 04:27 Estimated GFR > 60 ml/min 10/26/17 04:27 BUN/Creatinine Ratio 22 % 10/26/17 04:27 Glucose 100 mg/dL (75-100) 10/26/17 04:27 Calcium 8.4 mg/dL (8.4-10.2) 10/26/17 04:27 Phosphorus 2.90 mg/dL (2.5-4.5) 10/26/17 04:27 Total Bilirubin 1.70 mg/dL (0.1-1.2) H 10/23/17 04:31 AST 16 units/L (5-40) 10/23/17 04:31 ALT 15 units/L (7-56) 10/23/17 04:31 Alkaline Phosphatase 72 units/L (35-129) 10/23/17 04:31 NT-Pro-B Natriuret Pep 5955 pg/mL (0-900) H 10/20/17 10:14 Total Protein 6.1 g/dL (6.3-8.2) L 10/23/17 04:31 Albumin 3.0 g/dL (3.9-5) L 10/23/17 04:31 Albumin/Globulin Ratio 1.0 % 10/23/17 04:31 Urine Color Yellow (Yellow) 10/20/17 15:45 Urine Turbidity Clear (Clear) 10/20/17 15:45 Urine pH 6.0 (5.0-7.0) 10/20/17 15:45 Ur Specific [place] 1.016 (1.003-1.030) 10/20/17 15:45 Urine Protein 30 mg/dl mg/dL (Negative) 10/20/17 15:45 Urine Glucose (UA) Neg mg/dL (Negative) 10/20/17 15:45 Urine Ketones Neg mg/dL (Negative) 10/20/17 15:45 Urine Blood Neg (Negative) 10/20/17 15:45 Urine Nitrite Neg (Negative) 10/20/17 15:45 Urine Bilirubin Neg (Negative) 10/20/17 15:45 Urine Urobilinogen 4.0 mg/dL (<2.0) 10/20/17 15:45 Ur Leukocyte Esterase Neg (Negative) 10/20/17 15:45 Urine WBC (Auto) < 1.0 /HPF (0.0-6.0) 10/20/17 15:45 Urine RBC (Auto) 1.0 /HPF (0.0-6.0) 10/20/17 15:45 Urine Bacteria (Auto) 1+ /HPF (Negative) 10/20/17 15:45 Hyaline Casts 3 /LPF 10/20/17 15:45
[2017-10-27] MEDS: PRIMACOR 20 MG in D5W 80 ML IV SCH ×3 (04:43→23:33)
[2017-10-27 06:05] LABS: Hematocrit 32.6 % (35.5-45.6); Hemoglobin 10.7 gm/dl (11.8-15.2); Mean Corpuscular HGB Conc 33 % (32-34); Mean Corpuscular Hemoglobin 29 pg (28-32); Mean Corpuscular Volume 88 fl (84-94); Platelet Count 232 K/mm3 (140-440); Red Blood Count 3.72 M/mm3 (3.65-5.03); Red Cell Distribution Width 17.7 % (13.2-15.2); White Blood Count 4.9 K/mm3 (4.5-11.0)
[2017-10-27 06:20] LABS: Anion Gap 14 mmol/L; BUN/Creatinine Ratio 22; Blood Urea Nitrogen 26 mg/dL (9-20); Calcium 8.3 mg/dL (8.4-10.2); Carbon Dioxide 33 mmol/L (22-30); Chloride 91.7 mmol/L (98-107); Glucose 87 mg/dL (75-100); Potassium 3.9 mmol/L (3.6-5.0); Sodium 135 mmol/L (137-145)
[2017-10-27] MEDS: HEPARIN SUB-Q SCH ×3 (06:22→22:29)
[2017-10-27] MEDS: LASIX IV SCH ×3 (06:22→18:48)
[2017-10-27] MEDS: APRESOLINE PO SCH ×3 (06:27→22:30)
[2017-10-27 07:32] LABS: Anisocytosis Few; Basophils % (Manual) 0 % (0.0-1.8); Blastocytes % (Manual) 0 %; Diff Status Complete; Hypochromasia Few
--- NOTE | 2017-10-27 09:18 | Progress Note ---
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 Fluid/sodium restrictions. Continue IV milrinone until the day of discharge. Stable cardiac camarena. Subjective Date of service: 10/27/17 Principal diagnosis: ARF Interval history: Patient has no complaints. IV milrinone continues. Nurse reports he is diuresing well. Objective Vital Signs Temp Pulse Resp BP Pulse Ox 10/27/17 09:17 74 10/27/17 07:23 98.2 F 76 18 133/93 99 10/27/17 06:27 75 115/64 10/27/17 03:57 98.7 F 75 20 115/64 98 10/26/17 23:44 98.9 F 79 20 128/80 100 10/26/17 22:50 71 103/55 10/26/17 22:00 72 18 10/26/17 19:44 99.1 F 71 18 103/55 95 10/26/17 16:07 98.9 F 80 18 109/69 94 10/26/17 11:23 99.4 F 72 18 101/60 95 - Physical Examination General: No Apparent Distress HEENT: Positive: PERRL Neck: Positive: neck supple Cardiac: Positive: Reg Rate and Rhythm Lungs: Positive: Decreased Breath Sounds Neuro: Positive: Grossly Intact Extremities: Present: +1 Edema - Labs and Meds CBC 10/27/17 Range/Units 04:33 WBC 4.9 (4.5-11.0) K/mm3 RBC 3.72 (3.65-5.03) M/mm3 Hgb 10.7 L (11.8-15.2) gm/dl Hct 32.6 L (35.5-45.6) % Plt Count 232 (140-440) K/mm3 Comprehensive Metabolic Panel 10/27/17 Range/Units 04:33 Sodium 135 L (137-145) mmol/L Potassium 3.9 (3.6-5.0) mmol/L Chloride 91.7 L (98-107) mmol/L Carbon Dioxide 33 H (22-30) mmol/L BUN 26 H (9-20) mg/dL Creatinine 1.2 (0.8-1.5) mg/dL Glucose 87 (75-100) mg/dL Calcium 8.3 L (8.4-10.2) mg/dL
[2017-10-27] MEDS: NEURONTIN PO SCH ×3 (11:42→22:30)
[2017-10-27] MEDS: HALFPRIN EC PO SCH (11:42)
[2017-10-27] MEDS: COREG PO SCH ×2 (11:43→22:31)
[2017-10-27] MEDS: PERCOCET 5/325 PO PRN ×2 (11:43→18:54)
[2017-10-27] MEDS: ALDACTONE PO SCH (11:43)
[2017-10-27] MEDS: ZAROXOLYN PO SCH (11:43)
--- NOTE | 2017-10-27 11:45 | Progress Note ---
Assessment and Plan (1) Acute renal failure (ARF) Current Visit: Yes Status: Acute Plan to address problem: Cr stable. Continue Lasix 40 mg IV TID and Metolazone 5 mg po daily. Renally dose meds Avoid Nephrotoxins Strict I&O Obtain daily weights Continue to monitor renal function and continue diuresis, Leg swelling slowly improving. (2) Acute on chronic systolic heart failure Current Visit: Yes Status: Acute Plan to address problem: On Lasix 40 mg IV TID and Metolazone 5 mg po daily for diuresis. Continue On oral Carvedilol and Milronone drip As per Cardiology (3) Hypertension Current Visit: Yes Status: Acute Plan to address problem: Blood pressures are stable. (4) Anemia, normocytic Current Visit: Yes Status: Acute Plan to address problem: Transfusion PRN per primary (5) Neuropathy Current Visit: Yes Status: chronic Plan to address problem: On Gabapentin. Rachid Carlton MD Nephrology, Hypertension, Dialysis, Transplantation Phone no: [phone] Subjective Date of service: 10/27/17 Principal diagnosis: ARF Interval history: Denies CP/SHOB. Leg swelling improving. Objective - Exam Narrative Exam: General appearance: well-developed, appears stated age EENT: ATNC, PERRL, hearing intact, vision intact Neck: no JVD, supple Respiratory: Present: Decreased Breath Sounds Cardiology: regular, S1S2 Gastrointestinal: normoactive bowel sounds Integumentary: warm and dry Neurologic: alert and oriented x3 Musculoskeletal: 1-2+ BLE edema Psychiatric: cooperative - Vital Signs Vital signs: Vital Signs - 12hr 10/27/17 10/27/17 10/27/17 03:57 06:27 07:23 Temperature 98.7 F 98.2 F Pulse Rate 75 75 76 Respiratory 20 18 Rate Blood Pressure 115/64 115/64 133/93 O2 Sat by Pulse 98 99 Oximetry 10/27/17 10/27/17 09:17 11:32 Temperature 97.9 F Pulse Rate 74 79 Respiratory 20 Rate Blood Pressure 134/97 O2 Sat by Pulse 100 Oximetry - Lab 10/27/17 04:33 10/27/17 04:33 Most recent lab results Calcium 8.3 mg/dL (8.4-10.2) L 10/27/17 04:33 Phosphorus 4.10 mg/dL (2.5-4.5) D 10/27/17 04:33 Magnesium 1.80 mg/dL (1.7-2.3) 10/27/17 04:33
--- NOTE | 2017-10-27 15:28 | Progress Note ---
Assessment and Plan Assessment and plan: Patient is 62-year-old with history of hypertension, cardiomyopathy with EF 35% , gout. He presents with a one-month history of shortness of breath and bilateral leg edema. Patient states leg swelling started with both feet, became worse ascending up and now edema up to upper thighs. In addition he has been having shortness of breath, worse on exertion, worse on climbing stairs and also worse on lying flat. Acute respiratory failure with hypoxia due to acute CHF supplemental Oxygen - Resolving Acute systolic congestive heart failure Echocardiogram EF 35% by [facility] 03/2017 Iv lasix is increased 3x a day, added spironolactone and metolazone, continue IV milrinone Strict I&O's and daily weights Low-sodium/cardiac diet/fluid restriction Closely monitor electrolytes Penile swelling is getting better Dilated NICMP EF 35% by [facility] 03/2017 Hypokalemia Resolved Closely monitor electrolytes Elevated Bilirubin. Most likely due to Hepatic congestion. Repeat CMP Hypertensive urgency Continue home antihypertensive medications Closely monitor blood pressure Chronic anemia H&H stable for patient at this point; no blood transfusions needed DVT prophylaxis Heparin Disposition - continue inpatient care, patient will be discharged in 1-2 days. History Interval history: Patient was seen and evaluated this morning, shortness of breath is getting better, the scrotal and leg swelling is getting better. Hospitalist Physical - Physical exam Narrative exam: Not in cardiopulmonary distress. The patient appeared well nourished and normally developed. Vital signs as documented. Head exam is unremarkable. No scleral icterus . Neck is without jugular venous distension, thyromegaly, or carotid bruits. Lungs are clear to auscultation. Cardiac exam reveals regular rate and Rhythm. First and second heart sounds normal. No murmurs, rubs or gallops. Abdominal exam reveals normal bowel sounds, no masses, no organomegaly and no aortic enlargement. Extremities +2 pedal and pretibial edema. Swelling/edema of the penis. RECEIVING DOCK CHECKER: Alert and oriented 3. No focal weakness. - Constitutional Vitals: Temp Pulse Resp BP Pulse Ox 97.9 F 79 20 134/97 100 10/27/17 11:32 10/27/17 11:32 10/27/17 11:32 10/27/17 11:32 10/27/17 11:32 General appearance: Present: no acute distress Results - Labs CBC & Chem 7: 10/27/17 04:33 10/27/17 04:33 Labs: Laboratory Last Values WBC 4.9 K/mm3 (4.5-11.0) 10/27/17 04:33 RBC 3.72 M/mm3 (3.65-5.03) 10/27/17 04:33 Hgb 10.7 gm/dl (11.8-15.2) L 10/27/17 04:33 Hct 32.6 % (35.5-45.6) L 10/27/17 04:33 MCV 88 fl (84-94) 10/27/17 04:33 MCH 29 pg (28-32) 10/27/17 04:33 MCHC 33 % (32-34) 10/27/17 04:33 RDW 17.7 % (13.2-15.2) H 10/27/17 04:33 Plt Count 232 K/mm3 (140-440) 10/27/17 04:33 Lymph % (Auto) 12.7 % (13.4-35.0) L 10/24/17 05:32 [place] % (Auto) Motion Picture Set Worker 10/27/17 04:33 Eos % (Auto) 1.7 % (0.0-4.3) 10/24/17 05:32 Baso % (Auto) 0.8 % (0.0-1.8) 10/24/17 05:32 Lymph # 0.6 K/mm3 (1.2-5.4) L 10/24/17 05:32 [place] # 0.7 K/mm3 (0.0-0.8) 10/24/17 05:32 Eos # 0.1 K/mm3 (0.0-0.4) 10/24/17 05:32 Baso # 0.0 K/mm3 (0.0-0.1) 10/24/17 05:32 Add Manual Diff Complete 10/27/17 04:33 Total Counted 100 10/27/17 04:33 Seg Neutrophils % 68.8 % (40.0-70.0) 10/24/17 05:32 Seg Neuts % (Manual) 63.0 % (40.0-70.0) 10/27/17 04:33 Band Neutrophils % 5.0 % 10/27/17 04:33 Lymphocytes % (Manual) 14.0 % (13.4-35.0) 10/27/17 04:33 Reactive Lymphs % (Man) 0 % 10/27/17 04:33 Monocytes % (Manual) 15.0 % (0.0-7.3) H 10/27/17 04:33 Eosinophils % (Manual) 3.0 % (0.0-4.3) 10/27/17 04:33 Basophils % (Manual) 0 % (0.0-1.8) 10/27/17 04:33 Metamyelocytes % 0 % 10/27/17 04:33 Myelocytes % 0 % 10/27/17 04:33 Promyelocytes % 0 % 10/27/17 04:33 Blast Cells % 0 % 10/27/17 04:33 Nucleated RBC % Not Reportable 10/27/17 04:33 Seg Neutrophils # 3.2 K/mm3 (1.8-7.7) 10/24/17 05:32 Seg Neutrophils # Man 3.1 K/mm3 (1.8-7.7) 10/27/17 04:33 Band Neutrophils # 0.2 K/mm3 10/27/17 04:33 Lymphocytes # (Manual) 0.7 K/mm3 (1.2-5.4) L 10/27/17 04:33 Abs React Lymphs (Man) 0.0 K/mm3 10/27/17 04:33 Monocytes # (Manual) 0.7 K/mm3 (0.0-0.8) 10/27/17 04:33 Eosinophils # (Manual) 0.1 K/mm3 (0.0-0.4) 10/27/17 04:33 Basophils # (Manual) 0.0 K/mm3 (0.0-0.1) 10/27/17 04:33 Metamyelocytes # 0.0 K/mm3 10/27/17 04:33 Myelocytes # 0.0 K/mm3 10/27/17 04:33 Promyelocytes # 0.0 K/mm3 10/27/17 04:33 Blast Cells # 0.0 K/mm3 10/27/17 04:33 WBC Morphology Not Reportable 10/27/17 04:33 Hypersegmented Neuts Not Reportable 10/27/17 04:33 Hyposegmented Neuts Not Reportable 10/27/17 04:33 Hypogranular Neuts Not Reportable 10/27/17 04:33 Smudge Cells Not Reportable 10/27/17 04:33 Toxic Granulation Not Reportable 10/27/17 04:33 Toxic Vacuolation Not Reportable 10/27/17 04:33 Dohle Bodies Not Reportable 10/27/17 04:33 Pelger-Huet Anomaly Not Reportable 10/27/17 04:33 Little Rods Not Reportable 10/27/17 04:33 Platelet Estimate Appears normal 10/27/17 04:33 Clumped Platelets Not Reportable 10/27/17 04:33 Plt Clumps, EDTA Not Reportable 10/27/17 04:33 Large Platelets Not Reportable 10/27/17 04:33 Giant Platelets Not Reportable 10/27/17 04:33 Platelet Satelliting Not Reportable 10/27/17 04:33 Plt Morphology Comment Not Reportable 10/27/17 04:33 RBC Morphology Not Reportable 10/27/17 04:33 Dimorphic RBCs Not Reportable 10/27/17 04:33 Polychromasia Not Reportable 10/27/17 04:33 Hypochromasia Few 10/27/17 04:33 Poikilocytosis Not Reportable 10/27/17 04:33 Anisocytosis Few 10/27/17 04:33 Microcytosis Not Reportable 10/27/17 04:33 Macrocytosis Not Reportable 10/27/17 04:33 Spherocytes Not Reportable 10/27/17 04:33 Pappenheimer Bodies Not Reportable 10/27/17 04:33 Sickle Cells Not Reportable 10/27/17 04:33 Target Cells Not Reportable 10/27/17 04:33 Tear Drop Cells Not Reportable 10/27/17 04:33 Ovalocytes Not Reportable 10/27/17 04:33 Helmet Cells Not Reportable 10/27/17 04:33 [place] Bodies Not Reportable 10/27/17 04:33 [place] Rings Not Reportable 10/27/17 04:33 [place] Cells Not Reportable 10/27/17 04:33 Bite Cells Not Reportable 10/27/17 04:33 Crenated Cell Not Reportable 10/27/17 04:33 Elliptocytes Not Reportable 10/27/17 04:33 Acanthocytes (Spur) Not Reportable 10/27/17 04:33 Rouleaux Not Reportable 10/27/17 04:33 Hemoglobin C Crystals Not Reportable 10/27/17 04:33 Schistocytes Not Reportable 10/27/17 04:33 Malaria parasites Not Reportable 10/27/17 04:33 Valeriy Bodies Not Reportable 10/27/17 04:33 Hem Pathologist Commnt No 10/27/17 04:33 PT 16.4 Sec. (12.2-14.9) H 10/20/17 10:14 INR 1.26 (0.87-1.13) H 10/20/17 10:14 APTT 29.6 Sec. (24.2-36.6) 10/20/17 10:14 Sodium 135 mmol/L (137-145) L 10/27/17 04:33 Potassium 3.9 mmol/L (3.6-5.0) 10/27/17 04:33 Chloride 91.7 mmol/L (98-107) L 10/27/17 04:33 Carbon Dioxide 33 mmol/L (22-30) H 10/27/17 04:33 Anion Gap 14 mmol/L 10/27/17 04:33 BUN 26 mg/dL (9-20) H 10/27/17 04:33 Creatinine 1.2 mg/dL (0.8-1.5) 10/27/17 04:33 Estimated GFR > 60 ml/min 10/27/17 04:33 BUN/Creatinine Ratio 22 % 10/27/17 04:33 Glucose 87 mg/dL (75-100) 10/27/17 04:33 Calcium 8.3 mg/dL (8.4-10.2) L 10/27/17 04:33 Phosphorus 4.10 mg/dL (2.5-4.5) D 10/27/17 04:33 Magnesium 1.80 mg/dL (1.7-2.3) 10/27/17 04:33 Total Bilirubin 1.70 mg/dL (0.1-1.2) H 10/23/17 04:31 AST 16 units/L (5-40) 10/23/17 04:31 ALT 15 units/L (7-56) 10/23/17 04:31 Alkaline Phosphatase 72 units/L (35-129) 10/23/17 04:31 NT-Pro-B Natriuret Pep 5955 pg/mL (0-900) H 10/20/17 10:14 Total Protein 6.1 g/dL (6.3-8.2) L 10/23/17 04:31 Albumin 3.0 g/dL (3.9-5) L 10/23/17 04:31 Albumin/Globulin Ratio 1.0 % 10/23/17 04:31 Urine Color Yellow (Yellow) 10/20/17 15:45 Urine Turbidity Clear (Clear) 10/20/17 15:45 Urine pH 6.0 (5.0-7.0) 10/20/17 15:45 Ur Specific [place] 1.016 (1.003-1.030) 10/20/17 15:45 Urine Protein 30 mg/dl mg/dL (Negative) 10/20/17 15:45 Urine Glucose (UA) Neg mg/dL (Negative) 10/20/17 15:45 Urine Ketones Neg mg/dL (Negative) 10/20/17 15:45 Urine Blood Neg (Negative) 10/20/17 15:45 Urine Nitrite Neg (Negative) 10/20/17 15:45 Urine Bilirubin Neg (Negative) 10/20/17 15:45 Urine Urobilinogen 4.0 mg/dL (<2.0) 10/20/17 15:45 Ur Leukocyte Esterase Neg (Negative) 10/20/17 15:45 Urine WBC (Auto) < 1.0 /HPF (0.0-6.0) 10/20/17 15:45 Urine RBC (Auto) 1.0 /HPF (0.0-6.0) 10/20/17 15:45 Urine Bacteria (Auto) 1+ /HPF (Negative) 10/20/17 15:45 Hyaline Casts 3 /LPF 10/20/17 15:45
[2017-10-28 06:11] LABS: Hematocrit 33.8 % (35.5-45.6); Hemoglobin 11.1 gm/dl (11.8-15.2); Mean Corpuscular HGB Conc 33 % (32-34); Mean Corpuscular Hemoglobin 29 pg (28-32); Mean Corpuscular Volume 88 fl (84-94); Platelet Count 261 K/mm3 (140-440); Red Blood Count 3.86 M/mm3 (3.65-5.03); White Blood Count 4.7 K/mm3 (4.5-11.0)
[2017-10-28] MEDS: LASIX IV SCH (06:21)
[2017-10-28] MEDS: HEPARIN SUB-Q SCH ×3 (06:22→22:16)
[2017-10-28] MEDS: APRESOLINE PO SCH ×3 (06:22→22:18)
[2017-10-28 06:30] LABS: Anion Gap 17 mmol/L; BUN/Creatinine Ratio 23; Blood Urea Nitrogen 27 mg/dL (9-20); Calcium 8.5 mg/dL (8.4-10.2); Carbon Dioxide 33 mmol/L (22-30); Chloride 91.5 mmol/L (98-107); Glucose 91 mg/dL (75-100); Potassium 3.9 mmol/L (3.6-5.0); Sodium 138 mmol/L (137-145)
[2017-10-28 06:45] LABS: Basophils % (Manual) 0 % (0.0-1.8); Blastocytes % (Manual) 0 %; Diff Status Complete; Hypochromasia 1+; Platelet Estimate Consistent w Auto
--- NOTE | 2017-10-28 09:36 | Progress Note ---
Assessment and Plan Acute on chronic systolic heart failure s/t to noncompliance with medications and fluid restrictions Dilated NICMP no significant CAD, EF 35% by [facility] 03/2017 Hypertension Recommendations: Advised compliance with medications. Fluid/sodium restrictions. Discontinue IV milrinone Change IV lasix to po lasix Start low dose ACEi Anticipate discharge in am Subjective Date of service: 10/28/17 Principal diagnosis: ARF Interval history: Patient looks and feels better. He denies chest pain or shortness of breath No events on tele Objective Vital Signs Temp Pulse Resp BP BP Pulse Ox 10/28/17 08:24 98.8 F 87 18 144/97 97 10/28/17 06:22 77 134/81 10/28/17 04:07 99.0 F 77 20 134/81 96 10/27/17 23:42 97.4 F L 75 20 128/89 97 10/27/17 19:33 99.3 F 78 20 91/56 90 10/27/17 17:17 99.2 F 77 18 98 10/27/17 16:13 99.2 F 77 18 101/53 99 10/27/17 12:00 75 97 10/27/17 11:32 97.9 F 79 20 134/97 100 - Physical Examination General: No Apparent Distress HEENT: Positive: PERRL Neck: Positive: neck supple Cardiac: Positive: Reg Rate and Rhythm Lungs: Positive: Normal Exam Neuro: Positive: Grossly Intact Abdomen: Positive: Soft Skin: Positive: Clear Extremities: Present: +1 Edema - Labs and Meds CBC 10/28/17 Range/Units 04:42 WBC 4.7 (4.5-11.0) K/mm3 RBC 3.86 (3.65-5.03) M/mm3 Hgb 11.1 L (11.8-15.2) gm/dl Hct 33.8 L (35.5-45.6) % Plt Count 261 (140-440) K/mm3 Comprehensive Metabolic Panel 10/28/17 Range/Units 04:42 Sodium 138 (137-145) mmol/L Potassium 3.9 (3.6-5.0) mmol/L Chloride 91.5 L (98-107) mmol/L Carbon Dioxide 33 H (22-30) mmol/L BUN 27 H (9-20) mg/dL Creatinine 1.2 (0.8-1.5) mg/dL Glucose 91 (75-100) mg/dL Calcium 8.5 (8.4-10.2) mg/dL
--- NOTE | 2017-10-28 10:46 | Progress Note ---
Assessment and Plan (1) Acute renal failure (ARF) Current Visit: Yes Status: Acute Plan to address problem: Cr stable. Agree with switching lasix to 40 mg PO BID. This can be his home dose. Continue Metolazone 5 mg po daily. Renally dose meds Avoid Nephrotoxins Strict I&O Obtain daily weights Continue to monitor renal function and continue diuresis, Leg swelling slowly improving. (2) Acute on chronic systolic heart failure Current Visit: Yes Status: Acute Plan to address problem: On Lasix and Metolazone 5 mg po daily for diuresis. Continue On oral Carvedilol. Milrione drip being stopped. As per Cardiology (3) Hypertension Current Visit: Yes Status: Acute Plan to address problem: Blood pressures are stable. (4) Anemia, normocytic Current Visit: Yes Status: Acute Plan to address problem: Transfusion PRN per primary (5) Neuropathy Current Visit: Yes Status: chronic Plan to address problem: On Gabapentin. Pt should f/u 1 week after discharge with [facility]. Rachid Carlton MD Nephrology, Hypertension, Dialysis, Transplantation Phone no: [phone] Subjective Date of service: 10/28/17 Principal diagnosis: ARF Interval history: Denies CP/SHOB. Leg swelling getting better. Objective - Exam Narrative Exam: General appearance: well-developed, appears stated age EENT: ATNC, PERRL, hearing intact, vision intact Neck: no JVD, supple Respiratory: Present: Decreased Breath Sounds Cardiology: regular, S1S2 Gastrointestinal: normoactive bowel sounds Integumentary: warm and dry Neurologic: alert and oriented x3 Musculoskeletal: 1+ BLE edema Psychiatric: cooperative - Vital Signs Vital signs: Vital Signs - 12hr 10/27/17 10/28/17 10/28/17 23:42 04:07 06:22 Temperature 97.4 F L 99.0 F Pulse Rate 75 77 77 Respiratory 20 20 Rate Blood Pressure 128/89 134/81 134/81 Blood Pressure [Right] O2 Sat by Pulse 97 96 Oximetry 10/28/17 08:24 Temperature 98.8 F Pulse Rate 87 Respiratory 18 Rate Blood Pressure Blood Pressure 144/97 [Right] O2 Sat by Pulse 97 Oximetry - Lab 10/28/17 04:42 10/28/17 04:42 Most recent lab results Calcium 8.5 mg/dL (8.4-10.2) 10/28/17 04:42 Phosphorus 4.50 mg/dL (2.5-4.5) 10/28/17 04:42 Magnesium 1.80 mg/dL (1.7-2.3) 10/27/17 04:33
[2017-10-28] MEDS: HALFPRIN EC PO SCH (12:14)
[2017-10-28] MEDS: COREG PO SCH ×2 (12:15→22:19)
[2017-10-28] MEDS: ZESTRIL PO SCH (12:16)
[2017-10-28] MEDS: ZAROXOLYN PO SCH (12:16)
[2017-10-28] MEDS: ALDACTONE PO SCH (12:16)
[2017-10-28] MEDS: PERCOCET 5/325 PO PRN ×2 (12:21→18:07)
[2017-10-28] MEDS: NEURONTIN PO SCH ×3 (12:25→22:16)
--- NOTE | 2017-10-28 12:31 | Progress Note ---
Assessment and Plan Assessment and plan: Patient is 62-year-old with history of hypertension, cardiomyopathy with EF 35% , gout. He presents with a one-month history of shortness of breath and bilateral leg edema. Patient states leg swelling started with both feet, became worse ascending up and now edema up to upper thighs. In addition he has been having shortness of breath, worse on exertion, worse on climbing stairs and also worse on lying flat. Acute respiratory failure with hypoxia due to acute CHF supplemental Oxygen - Resolving Acute systolic congestive heart failure Echocardiogram EF 35% by [facility] 03/2017 Change lasix to PO, added spironolactone and metolazone, dc IV milrinone Strict I&O's and daily weights Low-sodium/cardiac diet/fluid restriction Closely monitor electrolytes Penile swelling is getting better Dilated NICMP EF 35% by [facility] 03/2017 Hypokalemia Resolved Closely monitor electrolytes Elevated Bilirubin. Most likely due to Hepatic congestion. Repeat CMP Hypertensive urgency Continue home antihypertensive medications Closely monitor blood pressure Chronic anemia H&H stable for patient at this point; no blood transfusions needed DVT prophylaxis Heparin Disposition - continue inpatient care, patient will be discharged in 1-2 days. History Interval history: liu, sob, LE edema is improved no cp, no fever, no vomiting, no seizure, no confusion Hospitalist Physical - Physical exam Narrative exam: Not in cardiopulmonary distress. The patient appeared well nourished and normally developed. Vital signs as documented. Head exam is unremarkable. No scleral icterus . Neck is without jugular venous distension, thyromegaly, or carotid bruits. Lungs are clear to auscultation. Cardiac exam reveals regular rate and Rhythm. First and second heart sounds normal. No murmurs, rubs or gallops. Abdominal exam reveals normal bowel sounds, no masses, no organomegaly and no aortic enlargement. Extremities +2 pedal and pretibial edema. Swelling/edema of the penis. HOSE MENDER: Alert and oriented 3. No focal weakness. - Constitutional Vitals: Temp Pulse Resp BP Pulse Ox 98.8 F 87 18 144/97 97 10/28/17 08:24 10/28/17 12:16 10/28/17 08:24 10/28/17 12:16 10/28/17 08:24 General appearance: Present: no acute distress Results - Labs CBC & Chem 7: 10/30/17 05:05 10/30/17 05:05 Labs: Laboratory Last Values WBC 4.7 K/mm3 (4.5-11.0) 10/28/17 04:42 RBC 3.86 M/mm3 (3.65-5.03) 10/28/17 04:42 Hgb 11.1 gm/dl (11.8-15.2) L 10/28/17 04:42 Hct 33.8 % (35.5-45.6) L 10/28/17 04:42 MCV 88 fl (84-94) 10/28/17 04:42 MCH 29 pg (28-32) 10/28/17 04:42 MCHC 33 % (32-34) 10/28/17 04:42 RDW 18.0 % (13.2-15.2) H 10/28/17 04:42 Plt Count 261 K/mm3 (140-440) 10/28/17 04:42 Lymph % (Auto) 12.7 % (13.4-35.0) L 10/24/17 05:32 [place] % (Auto) Morning Show Host 10/28/17 04:42 Eos % (Auto) 1.7 % (0.0-4.3) 10/24/17 05:32 Baso % (Auto) 0.8 % (0.0-1.8) 10/24/17 05:32 Lymph # 0.6 K/mm3 (1.2-5.4) L 10/24/17 05:32 [place] # 0.7 K/mm3 (0.0-0.8) 10/24/17 05:32 Eos # 0.1 K/mm3 (0.0-0.4) 10/24/17 05:32 Baso # 0.0 K/mm3 (0.0-0.1) 10/24/17 05:32 Add Manual Diff Complete 10/28/17 04:42 Total Counted 100 10/28/17 04:42 Seg Neutrophils % 68.8 % (40.0-70.0) 10/24/17 05:32 Seg Neuts % (Manual) 66.0 % (40.0-70.0) 10/28/17 04:42 Band Neutrophils % 0 % 10/28/17 04:42 Lymphocytes % (Manual) 15.0 % (13.4-35.0) 10/28/17 04:42 Reactive Lymphs % (Man) 0 % 10/28/17 04:42 Monocytes % (Manual) 17.0 % (0.0-7.3) H 10/28/17 04:42 Eosinophils % (Manual) 2.0 % (0.0-4.3) 10/28/17 04:42 Basophils % (Manual) 0 % (0.0-1.8) 10/28/17 04:42 Metamyelocytes % 0 % 10/28/17 04:42 Myelocytes % 0 % 10/28/17 04:42 Promyelocytes % 0 % 10/28/17 04:42 Blast Cells % 0 % 10/28/17 04:42 Nucleated RBC % Not Reportable 10/28/17 04:42 Seg Neutrophils # 3.2 K/mm3 (1.8-7.7) 10/24/17 05:32 Seg Neutrophils # Man 3.1 K/mm3 (1.8-7.7) 10/28/17 04:42 Band Neutrophils # 0.0 K/mm3 10/28/17 04:42 Lymphocytes # (Manual) 0.7 K/mm3 (1.2-5.4) L 10/28/17 04:42 Abs React Lymphs (Man) 0.0 K/mm3 10/28/17 04:42 Monocytes # (Manual) 0.8 K/mm3 (0.0-0.8) 10/28/17 04:42 Eosinophils # (Manual) 0.1 K/mm3 (0.0-0.4) 10/28/17 04:42 Basophils # (Manual) 0.0 K/mm3 (0.0-0.1) 10/28/17 04:42 Metamyelocytes # 0.0 K/mm3 10/28/17 04:42 Myelocytes # 0.0 K/mm3 10/28/17 04:42 Promyelocytes # 0.0 K/mm3 10/28/17 04:42 Blast Cells # 0.0 K/mm3 10/28/17 04:42 WBC Morphology Not Reportable 10/28/17 04:42 Hypersegmented Neuts Not Reportable 10/28/17 04:42 Hyposegmented Neuts Not Reportable 10/28/17 04:42 Hypogranular Neuts Not Reportable 10/28/17 04:42 Smudge Cells Not Reportable 10/28/17 04:42 Toxic Granulation Not Reportable 10/28/17 04:42 Toxic Vacuolation Not Reportable 10/28/17 04:42 Dohle Bodies Not Reportable 10/28/17 04:42 Pelger-Huet Anomaly Not Reportable 10/28/17 04:42 Little Rods Not Reportable 10/28/17 04:42 Platelet Estimate Consistent w auto 10/28/17 04:42 Clumped Platelets Not Reportable 10/28/17 04:42 Plt Clumps, EDTA Not Reportable 10/28/17 04:42 Large Platelets Not Reportable 10/28/17 04:42 Giant Platelets Not Reportable 10/28/17 04:42 Platelet Satelliting Not Reportable 10/28/17 04:42 Plt Morphology Comment Not Reportable 10/28/17 04:42 RBC Morphology Not Reportable 10/28/17 04:42 Dimorphic RBCs Not Reportable 10/28/17 04:42 Polychromasia Not Reportable 10/28/17 04:42 Hypochromasia 1+ 10/28/17 04:42 Poikilocytosis Not Reportable 10/28/17 04:42 Anisocytosis Not Reportable 10/28/17 04:42 Microcytosis Not Reportable 10/28/17 04:42 Macrocytosis Not Reportable 10/28/17 04:42 Spherocytes Not Reportable 10/28/17 04:42 Pappenheimer Bodies Not Reportable 10/28/17 04:42 Sickle Cells Not Reportable 10/28/17 04:42 Target Cells Not Reportable 10/28/17 04:42 Tear Drop Cells Not Reportable 10/28/17 04:42 Ovalocytes Not Reportable 10/28/17 04:42 Helmet Cells Not Reportable 10/28/17 04:42 [place] Bodies Not Reportable 10/28/17 04:42 [place] Rings Not Reportable 10/28/17 04:42 [place] Cells Not Reportable 10/28/17 04:42 Bite Cells Not Reportable 10/28/17 04:42 Crenated Cell Not Reportable 10/28/17 04:42 Elliptocytes Not Reportable 10/28/17 04:42 Acanthocytes (Spur) Not Reportable 10/28/17 04:42 Rouleaux Not Reportable 10/28/17 04:42 Hemoglobin C Crystals Not Reportable 10/28/17 04:42 Schistocytes Not Reportable 10/28/17 04:42 Malaria parasites Not Reportable 10/28/17 04:42 Valeriy Bodies Not Reportable 10/28/17 04:42 Hem Pathologist Commnt No 10/28/17 04:42 PT 16.4 Sec. (12.2-14.9) H 10/20/17 10:14 INR 1.26 (0.87-1.13) H 10/20/17 10:14 APTT 29.6 Sec. (24.2-36.6) 10/20/17 10:14 Sodium 138 mmol/L (137-145) 10/28/17 04:42 Potassium 3.9 mmol/L (3.6-5.0) 10/28/17 04:42 Chloride 91.5 mmol/L (98-107) L 10/28/17 04:42 Carbon Dioxide 33 mmol/L (22-30) H 10/28/17 04:42 Anion Gap 17 mmol/L 10/28/17 04:42 BUN 27 mg/dL (9-20) H 10/28/17 04:42 Creatinine 1.2 mg/dL (0.8-1.5) 10/28/17 04:42 Estimated GFR > 60 ml/min 10/28/17 04:42 BUN/Creatinine Ratio 23 % 10/28/17 04:42 Glucose 91 mg/dL (75-100) 10/28/17 04:42 Calcium 8.5 mg/dL (8.4-10.2) 10/28/17 04:42 Phosphorus 4.50 mg/dL (2.5-4.5) 10/28/17 04:42 Magnesium 1.80 mg/dL (1.7-2.3) 10/27/17 04:33 Total Bilirubin 1.70 mg/dL (0.1-1.2) H 10/23/17 04:31 AST 16 units/L (5-40) 10/23/17 04:31 ALT 15 units/L (7-56) 10/23/17 04:31 Alkaline Phosphatase 72 units/L (35-129) 10/23/17 04:31 NT-Pro-B Natriuret Pep 5955 pg/mL (0-900) H 10/20/17 10:14 Total Protein 6.1 g/dL (6.3-8.2) L 10/23/17 04:31 Albumin 3.0 g/dL (3.9-5) L 10/23/17 04:31 Albumin/Globulin Ratio 1.0 % 10/23/17 04:31 Urine Color Yellow (Yellow) 10/20/17 15:45 Urine Turbidity Clear (Clear) 10/20/17 15:45 Urine pH 6.0 (5.0-7.0) 10/20/17 15:45 Ur Specific [place] 1.016 (1.003-1.030) 10/20/17 15:45 Urine Protein 30 mg/dl mg/dL (Negative) 10/20/17 15:45 Urine Glucose (UA) Neg mg/dL (Negative) 10/20/17 15:45 Urine Ketones Neg mg/dL (Negative) 10/20/17 15:45 Urine Blood Neg (Negative) 10/20/17 15:45 Urine Nitrite Neg (Negative) 10/20/17 15:45 Urine Bilirubin Neg (Negative) 10/20/17 15:45 Urine Urobilinogen 4.0 mg/dL (<2.0) 10/20/17 15:45 Ur Leukocyte Esterase Neg (Negative) 10/20/17 15:45 Urine WBC (Auto) < 1.0 /HPF (0.0-6.0) 10/20/17 15:45 Urine RBC (Auto) 1.0 /HPF (0.0-6.0) 10/20/17 15:45 Urine Bacteria (Auto) 1+ /HPF (Negative) 10/20/17 15:45 Hyaline Casts 3 /LPF 10/20/17 15:45
[2017-10-28] MEDS: LASIX PO SCH (22:18)
[2017-10-29 05:51] LABS: Mean Corpuscular HGB Conc 32 % (32-34); Mean Corpuscular Hemoglobin 28 pg (28-32); Mean Corpuscular Volume 88 fl (84-94); Platelet Count 281 K/mm3 (140-440); Red Blood Count 3.87 M/mm3 (3.65-5.03); Red Cell Distribution Width 17.9 % (13.2-15.2); White Blood Count 5.5 K/mm3 (4.5-11.0)
[2017-10-29 06:00] LABS: Anion Gap 19 mmol/L; BUN/Creatinine Ratio 23; Blood Urea Nitrogen 25 mg/dL (9-20); Calcium 8.3 mg/dL (8.4-10.2); Carbon Dioxide 30 mmol/L (22-30); Chloride 91.6 mmol/L (98-107); Glucose 90 mg/dL (75-100); Potassium 4.1 mmol/L (3.6-5.0); Sodium 136 mmol/L (137-145)
[2017-10-29 06:13] LABS: Eosinophils % (Auto) 2.5 % (0.0-4.3)
[2017-10-29] MEDS: APRESOLINE PO SCH ×4 (06:42→22:37)
[2017-10-29] MEDS: HEPARIN SUB-Q SCH ×4 (06:44→22:38)
[2017-10-29] MEDS: LASIX PO SCH ×2 (06:44→18:43)
[2017-10-29 06:58] LABS: Basophils % (Manual) 0 % (0.0-1.8); Blastocytes % (Manual) 0 %
[2017-10-29 07:00] LABS: Anisocytosis Few; Diff Status Complete; Hypochromasia 1+
[2017-10-29] MEDS: HALFPRIN EC PO SCH (10:15)
[2017-10-29] MEDS: ZAROXOLYN PO SCH (10:16)
[2017-10-29] MEDS: ALDACTONE PO SCH (10:16)
[2017-10-29] MEDS: COREG PO SCH ×3 (10:16→22:37)
[2017-10-29] MEDS: ZESTRIL PO SCH (10:16)
[2017-10-29] MEDS: NEURONTIN PO SCH ×3 (10:16→20:52)
[2017-10-29] MEDS: PERCOCET 5/325 PO PRN ×2 (10:21→20:52)
--- NOTE | 2017-10-29 10:28 | Progress Note ---
Assessment and Plan (1) Acute renal failure (ARF) Current Visit: Yes Status: Acute Plan to address problem: Cr stable. Continue Lasix 40 mg BID and Metolazone 5 mg po daily. Will d/c lisinopril. Avoid Real inh/ARBs for now due to recent ARF. Renally dose meds Avoid Nephrotoxins Strict I&O Obtain daily weights Continue to monitor renal function and continue diuresis, Leg swelling slowly improving. (2) Acute on chronic systolic heart failure Current Visit: Yes Status: Acute Plan to address problem: On Lasix and Metolazone 5 mg po daily for diuresis. Continue On oral Carvedilol. As per Cardiology (3) Hypertension Current Visit: Yes Status: Acute Plan to address problem: Blood pressures are stable. (4) Anemia, normocytic Current Visit: Yes Status: Acute Plan to address problem: Transfusion PRN per primary (5) Neuropathy Current Visit: Yes Status: chronic Plan to address problem: On Gabapentin. Pt should f/u 1 week after discharge with [facility]. Rachid Carlton MD Nephrology, Hypertension, Dialysis, Transplantation Phone no: [phone] Subjective Date of service: 10/29/17 Principal diagnosis: ARF Interval history: Denies CP/SHOB. Leg swelling much better. Objective - Exam Narrative Exam: General appearance: well-developed, appears stated age EENT: ATNC, PERRL, hearing intact, vision intact Neck: no JVD, supple Respiratory: Present: Decreased Breath Sounds Cardiology: regular, S1S2 Gastrointestinal: normoactive bowel sounds Integumentary: warm and dry Neurologic: alert and oriented x3 Musculoskeletal: 1+ BLE edema Psychiatric: cooperative - Vital Signs Vital signs: Vital Signs - 12hr 10/29/17 10/29/17 10/29/17 00:00 05:50 06:42 Temperature 97.5 F L 98.2 F Pulse Rate 70 76 76 Respiratory 20 20 Rate Blood Pressure 128/87 Blood Pressure 125/80 128/87 [Right] O2 Sat by Pulse 97 94 Oximetry 10/29/17 10/29/17 07:36 10:21 Temperature 99.7 F H Pulse Rate 79 Respiratory 16 20 Rate Blood Pressure 126/89 Blood Pressure [Right] O2 Sat by Pulse 96 Oximetry - Lab 10/29/17 04:31 10/29/17 04:31 Most recent lab results Calcium 8.3 mg/dL (8.4-10.2) L 10/29/17 04:31 Phosphorus 3.50 mg/dL (2.5-4.5) D 10/29/17 04:31 Magnesium 1.80 mg/dL (1.7-2.3) 10/27/17 04:33
[2017-10-29 10:49] LABS: Alanine Aminotransferase 24 units/L (7-56); Albumin/Globulin Ratio 0.8 %; Alkaline Phosphatase 87 units/L (35-129); Anion Gap 20 mmol/L; BUN/Creatinine Ratio 25; Blood Urea Nitrogen 25 mg/dL (9-20); Calcium 8.5 mg/dL (8.4-10.2); Carbon Dioxide 28 mmol/L (22-30); Glucose 83 mg/dL (75-100); Potassium 4.3 mmol/L (3.6-5.0); Sodium 135 mmol/L (137-145); Total Protein 6.6 g/dL (6.3-8.2)
--- NOTE | 2017-10-29 14:31 | Discharge Summary ---
<CARLOS MARRERO - Last Filed: 12/02/17 08:32> Providers - Providers Date of Admission: 10/20/17 18:11 Date of discharge: 10/29/17 Attending physician: SAI CARBONE MD 10/20/17 18:11 Consult to Physician [CONS] Routine Consulting Provider: DK MONTEZ Reason For Exam: Acute CHF Place consult to:: Dr. Montez Notified:: Karmen RN Phone number called:: Was contact made?: Yes If yes, spoke with:: Jessica-answering service Time called:: 08:00 10/23/17 08:54 Consult to Physician [CONS] Routine Consulting Provider: MCKENNA WHITAKER Reason For Exam: cardiorenal syndrome Place consult to:: Obe Notified:: Service Phone number called:: [phone] Was contact made?: Yes If yes, spoke with:: Gomez Time called:: 11:19 Primary care physician: POCKET STITCHER Hospitalization Condition: Fair Hospital course: Patient is 62-year-old with history of hypertension, cardiomyopathy with EF 35% , gout. He presents with a one-month history of shortness of breath and bilateral leg edema. Patient states leg swelling started with both feet, became worse ascending up and now edema up to upper thighs. In addition he has been having shortness of breath, worse on exertion, worse on climbing stairs and also worse on lying flat. Chest X-ray showed mild CHF. Renal US showed no renal pathology but small collection of intra abdominal fluid and R pleural effusion. Patient was treated with diuretics and analgesics. Patient resumed home medications Discharge diagnosis Acute respiratory failure with hypoxia due to acute CHF Acute systolic congestive heart failure Dilated NICMP Hypokalemia Elevated bilirubin Hypertensive urgency Chronic anemia DVT prophylaxis Disposition: - TO HOME OR SELFCARE Time spent for discharge: 35 mins Core Measure Documentation - Palliative Care Palliative Care/ Comfort Measures: Not Applicable - Core Measures Any of the following diagnoses?: none Exam - Constitutional Vitals: Temp Pulse Resp BP Pulse Ox 98.7 F 78 16 107/66 97 10/29/17 10:38 10/29/17 10:38 10/29/17 10:38 10/29/17 10:38 10/29/17 10:38 General appearance: Present: no acute distress, well-nourished - EENT Eyes: Present: PERRL ENT: hearing intact, clear oral mucosa - Neck Neck: Present: supple, normal ROM - Respiratory Respiratory effort: normal Respiratory: bilateral: CTA - Cardiovascular Heart Sounds: Present: S1 & S2. Absent: rub, click - Extremities Extremities: pulses symmetrical Extremity abnormal: edema (trace) Peripheral Pulses: within normal limits - Abdominal General gastrointestinal: Present: soft, non-tender, non-distended, normal bowel sounds Male genitourinary: Present: normal - Rectal Rectal Exam: deferred - Integumentary Integumentary: Present: clear, warm, dry - Musculoskeletal Musculoskeletal: gait normal, strength equal bilaterally - Psychiatric Psychiatric: appropriate mood/affect, intact judgment & insight - Neurologic Neurologic: CNII-XII intact, moves all extremities - Allied Health Allied health notes reviewed: nursing Plan Diet: low fat, low cholesterol, low salt Follow up with: [facility] [Provider Group] - 7 Days DK MONTEZ MD [Staff Physician] - 7 Days PRIMARY CAREMD [Primary Care Provider] - 3-5 Days Prescriptions: Aspirin EC [Aspirin Enteric Coated TAB] 81 mg PO QDAY 30 Days tablet Furosemide [Lasix TAB] 40 mg PO BID #60 tablet Lisinopril 20 mg PO QDAY #30 tablet Metolazone [Zaroxolyn] 5 mg PO QDAY #30 tablet oxyCODONE /ACETAMINOPHEN [Percocet 5/325 mg] 2 tab PO Q4H PRN #30 tablet PRN Reason: Pain, Moderate (4-6) Oxycodone HCl/Acetaminophen [Percocet 10/325 mg] 1 each PO Q6HR PRN #30 tablet PRN Reason: Pain <SAI CARBONE - Last Filed: 12/02/17 19:11> Providers - Providers Date of Admission: 10/20/17 18:11 Attending physician: SAI CARBONE MD 10/20/17 18:11 Consult to Physician [CONS] Routine Consulting Provider: DK MONTEZ Reason For Exam: Acute CHF Place consult to:: Dr. Montez Notified:: Karmen JARA Phone number called:: Was contact made?: Yes If yes, spoke with:: Jessica-answering service Time called:: 08:00 11/24/17 08:54 Consult to Physician [CONS] Routine Consulting Provider: MCKENNA WHITAKER Reason For Exam: cardiorenal syndrome Place consult to:: Obe Notified:: Service Phone number called:: [phone] Was contact made?: Yes If yes, spoke with:: Gomez Time called:: 11:19 Primary care physician: POCKET STITCHER Exam - Constitutional Vitals: Temp Pulse Resp BP Pulse Ox 98.9 F 75 16 132/90 99 10/30/17 07:53 10/30/17 09:54 10/30/17 08:36 10/30/17 09:54 10/30/17 08:36
--- NOTE | 2017-10-29 14:33 | Progress Note ---
Assessment and Plan - Patient Problems (1) Acute on chronic systolic heart failure Current Visit: Yes Status: Acute Plan to address problem: Continue medical management of heart failure, stable cardiac status. Discharge planning in progress. Subjective Date of service: 10/29/17 Principal diagnosis: ARF Interval history: Patient is comfortable, in no acute distress. His edema has resolved. Objective Vital Signs Temp Pulse Resp BP BP Pulse Ox 10/29/17 10:38 98.7 F 78 16 107/66 97 10/29/17 10:21 20 10/29/17 07:36 99.7 F H 79 16 126/89 96 10/29/17 06:42 76 128/87 10/29/17 05:50 98.2 F 76 20 128/87 94 10/29/17 00:00 97.5 F L 70 20 125/80 97 10/28/17 19:44 98.7 F 10/28/17 19:42 72 97 10/28/17 19:41 76 20 103/67 96 10/28/17 18:47 98/58 10/28/17 18:08 81 18 125/73 10/28/17 16:01 97.9 F 73 18 98/58 94 - Physical Examination General: No Apparent Distress HEENT: Positive: PERRL Neck: Positive: neck supple Cardiac: Positive: Reg Rate and Rhythm Lungs: Positive: Decreased Breath Sounds Neuro: Positive: Grossly Intact Abdomen: Positive: Soft Skin: Positive: Clear Extremities: Present: edema - Labs and Meds Cardiac Enzymes 10/29/17 Range/Units 04:31 AST 37 (5-40) units/L CBC 10/29/17 Range/Units 04:31 WBC 5.5 (4.5-11.0) K/mm3 RBC 3.87 (3.65-5.03) M/mm3 Hgb 11.0 L (11.8-15.2) gm/dl Hct 34.0 L (35.5-45.6) % Plt Count 281 (140-440) K/mm3 [place] # 1.3 H (0.0-0.8) K/mm3 Eos # 0.1 (0.0-0.4) K/mm3 Baso # 0.1 (0.0-0.1) K/mm3 Comprehensive Metabolic Panel 10/29/17 10/29/17 Range/Units 04:31 04:31 Sodium 136 L 135 L (137-145) mmol/L Potassium 4.1 4.3 (3.6-5.0) mmol/L Chloride 91.6 L 91.0 L (98-107) mmol/L Carbon Dioxide 30 28 (22-30) mmol/L BUN 25 H 25 H (9-20) mg/dL Creatinine 1.1 1.0 (0.8-1.5) mg/dL Glucose 90 83 (75-100) mg/dL Calcium 8.3 L 8.5 (8.4-10.2) mg/dL AST 37 (5-40) units/L ALT 24 (7-56) units/L Alkaline Phosphatase 87 (35-129) units/L Total Protein 6.6 (6.3-8.2) g/dL Albumin 3.0 L (3.9-5) g/dL
[2017-10-30] MEDS: APRESOLINE PO SCH (05:43)
[2017-10-30] MEDS: LASIX PO SCH (05:43)
[2017-10-30] MEDS: HEPARIN SUB-Q SCH (05:44)
[2017-10-30 06:44] LABS: Hematocrit 36.7 % (35.5-45.6); Hemoglobin 11.9 gm/dl (11.8-15.2); Mean Corpuscular HGB Conc 32 % (32-34); Mean Corpuscular Hemoglobin 29 pg (28-32); Mean Corpuscular Volume 89 fl (84-94); Platelet Count 299 K/mm3 (140-440); Red Blood Count 4.11 M/mm3 (3.65-5.03); Red Cell Distribution Width 18.3 % (13.2-15.2); White Blood Count 4.8 K/mm3 (4.5-11.0)
[2017-10-30 06:54] LABS: Anion Gap 19 mmol/L; BUN/Creatinine Ratio 23; Blood Urea Nitrogen 27 mg/dL (9-20); Calcium 8.7 mg/dL (8.4-10.2); Carbon Dioxide 28 mmol/L (22-30); Chloride 94.6 mmol/L (98-107); Glucose 86 mg/dL (75-100); Potassium 4.3 mmol/L (3.6-5.0); Sodium 137 mmol/L (137-145)
[2017-10-30 08:05] LABS: Blastocytes % (Manual) 0 %
[2017-10-30 08:06] LABS: Anisocytosis 1+; Diff Status Complete; Hypochromasia 1+; Platelet Estimate Consistent w Auto
[2017-10-30 08:09] VITALS: BP 132/90
[2017-10-30] MEDS: PERCOCET 5/325 PO PRN (08:13)
[2017-10-30] MEDS: NEURONTIN PO SCH (08:13)
[2017-10-30] MEDS: ALDACTONE PO SCH (09:53)
[2017-10-30] MEDS: COREG PO SCH (09:54)
[2017-10-30] MEDS: HALFPRIN EC PO SCH (09:54)
[2017-10-30] MEDS: ZAROXOLYN PO SCH (09:54)
--- NOTE | 2017-10-30 10:20 | Progress Note ---
Assessment and Plan Acute on chronic systolic heart failure s/t to noncompliance with medications and fluid restrictions Dilated NICMP no significant CAD, EF 35% by [facility] 03/2017 Hypertension Advised compliance with medications. Fluid/sodium restrictions. Stable cardiac camarena. F/U with [facility] within 1wk of discharge. Subjective Date of service: 10/30/17 Principal diagnosis: ARF Interval history: Patient has no complaints. For planned discharged home today. Objective Vital Signs Temp Pulse Pulse Resp BP Pulse Ox 10/30/17 09:54 75 132/90 10/30/17 09:53 75 132/90 10/30/17 08:36 73 16 99 10/30/17 07:53 98.9 F 72 16 132/90 99 10/30/17 04:11 98.8 F 129/93 10/29/17 23:49 98.0 F 75 179/49 97 10/29/17 23:34 97.8 F 56 L 18 109/85 100 10/29/17 22:00 76 10/29/17 19:30 98.2 F 67 18 95/62 98 10/29/17 15:35 66 109/68 10/29/17 15:34 61 109/68 100 10/29/17 15:31 109/68 10/29/17 10:38 98.7 F 78 16 107/66 97 10/29/17 10:21 20 - Physical Examination General: No Apparent Distress HEENT: Positive: PERRL Cardiac: Positive: Reg Rate and Rhythm Neuro: Positive: Grossly Intact Extremities: Absent: edema - Labs and Meds Cardiac Enzymes 10/29/17 Range/Units 04:31 AST 37 (5-40) units/L CBC 10/30/17 Range/Units 05:05 WBC 4.8 (4.5-11.0) K/mm3 RBC 4.11 (3.65-5.03) M/mm3 Hgb 11.9 (11.8-15.2) gm/dl Hct 36.7 (35.5-45.6) % Plt Count 299 (140-440) K/mm3 Comprehensive Metabolic Panel 10/29/17 10/30/17 Range/Units 04:31 05:05 Sodium 135 L 137 (137-145) mmol/L Potassium 4.3 4.3 (3.6-5.0) mmol/L Chloride 91.0 L 94.6 L (98-107) mmol/L Carbon Dioxide 28 28 (22-30) mmol/L BUN 25 H 27 H (9-20) mg/dL Creatinine 1.0 1.2 (0.8-1.5) mg/dL Glucose 83 86 (75-100) mg/dL Calcium 8.5 8.7 (8.4-10.2) mg/dL AST 37 (5-40) units/L ALT 24 (7-56) units/L Alkaline Phosphatase 87 (35-129) units/L Total Protein 6.6 (6.3-8.2) g/dL Albumin 3.0 L (3.9-5) g/dL
--- NOTE | 2017-10-30 12:45 | Progress Note ---
Assessment and Plan (1) Acute renal failure (ARF) Current Visit: Yes Status: Acute Plan to address problem: Cr stable. Continue Lasix 40 mg BID and Metolazone 5 mg po daily. Will d/c lisinopril. Avoid Real inh/ARBs for now due to recent ARF. Renally dose meds Avoid Nephrotoxins Strict I&O Obtain daily weights Continue to monitor renal function and continue diuresis, Leg swelling slowly improving. (2) Acute on chronic systolic heart failure Current Visit: Yes Status: Acute Plan to address problem: On Lasix and Metolazone 5 mg po daily for diuresis. Continue On oral Carvedilol. As per Cardiology (3) Hypertension Current Visit: Yes Status: Acute Plan to address problem: Blood pressures are stable. (4) Anemia, normocytic Current Visit: Yes Status: Acute Plan to address problem: Transfusion PRN per primary (5) Neuropathy Current Visit: Yes Status: chronic Plan to address problem: On Gabapentin. Plan for possible discharge today. He can go home on lasix 40 mg BID and metolazone 5 mg daily. Ok to discharge home from Renal standpoint. Pt should f/ u 1 week after discharge with [facility]. Rachid Carlton MD Nephrology, Hypertension, Dialysis, Transplantation Phone no: [phone] Subjective Date of service: 10/30/17 Principal diagnosis: ARF Interval history: Denies CP/SHOB. Leg swelling improved. Objective - Exam Narrative Exam: General appearance: well-developed, appears stated age EENT: ATNC, PERRL, hearing intact, vision intact Neck: no JVD, supple Respiratory: Present: Decreased Breath Sounds Cardiology: regular, S1S2 Gastrointestinal: normoactive bowel sounds Integumentary: warm and dry Neurologic: alert and oriented x3 Musculoskeletal: 1+ BLE edema Psychiatric: cooperative - Vital Signs Vital signs: Vital Signs - 12hr 10/30/17 10/30/17 10/30/17 04:11 07:53 08:36 Temperature 98.8 F 98.9 F Pulse Rate 72 Pulse Rate [ 73 Apical] Respiratory 16 16 Rate Blood Pressure 129/93 132/90 O2 Sat by Pulse 99 99 Oximetry 10/30/17 10/30/17 09:53 09:54 Temperature Pulse Rate 75 75 Pulse Rate [ Apical] Respiratory Rate Blood Pressure 132/90 132/90 O2 Sat by Pulse Oximetry - Lab 10/30/17 05:05 10/30/17 05:05 Most recent lab results Calcium 8.7 mg/dL (8.4-10.2) 10/30/17 05:05 Phosphorus 3.50 mg/dL (2.5-4.5) D 10/29/17 04:31 Magnesium 2.00 mg/dL (1.7-2.3) 10/29/17 04:31
== END 2017-10-30 13:27 | disposition home or self-care (01) | DRG 291 ==
LOC: ED 09:33 → 4A 18:11
PROVIDERS: ADMIT Internal Medicine; ATTEND Internal Medicine
PROC: 3E0234Z Introduction of Serum, Toxoid and Vaccine into Muscle, Percutaneous Approach (ICD-10-PCS; principal; 2017-10-21)
DX: I11.0 Hypertensive heart disease with heart failure (principal); J96.01 Acute respiratory failure with hypoxia; N17.9 Acute kidney failure, unspecified; Z23 Encounter for immunization; Z87.891 Personal history of nicotine dependence; I42.9 Cardiomyopathy, unspecified; Z82.49 Family history of ischemic heart disease and other diseases of the circulatory system; I16.0 Hypertensive urgency; E87.6 Hypokalemia; D64.9 Anemia, unspecified; Z91.19 Patient's noncompliance with other medical treatment and regimen; I50.23 Acute on chronic systolic (congestive) heart failure; G62.9 Polyneuropathy, unspecified
CPT/HCPCS: 36415; 71020; 76770; 80048; 80053; 81001; 83735; 83880; 84100; 85007; 85025; 85610; 85730; 90686; 90732; 93005; 93010; 94760; 96374; 99285; J1644; J1940; J2260; J2270

== ENCOUNTER 2018-04-15 10:25 | Outpatient (CLI) | payer OTHER ==
--- NOTE | 2018-04-15 11:09 | XRay Report ---
XRAY LUMBAR SPINE THREE VIEWS: 04/15/18 10:25:00 CLINICAL: Back pain. FINDINGS: Levoscoliosis centered at L4-5 extensive facet joint disease with sclerosis from L3-S1. No fracture. The disc spaces are narrowed at L3-4 and L4-5. Spondylosis with anterior and lateral osteophytes at all levels and most prominent at L2-3. The pedicles are intact. No fracture. Normal soft tissues. IMPRESSION: Scoliosis with multilevel degenerative disc disease and facet joint arthropathy.
--- NOTE | 2018-04-15 11:12 | XRay Report ---
XRAY BILATERAL HIPS AND AP PELVIS THREE VIEWS: 04/15/18 00:00:00 CLINICAL: Hip pain. FINDINGS: Right: No fracture or dislocation. Mild osteoarthritis with superior lateral joint space narrowing and superior acetabular eburnation. Normal soft tissues. Left: Severe osteoarthritis with deformity and flattening of the left femoral head and superolateral subluxation of the femoral head. There is complete loss of the superior joint space with acetabular and femoral geodes. Superior and inferior osteophytes. No fracture. The pelvic bones are intact. Normal soft tissues. The pelvic bones are intact.Normal SI joints. IMPRESSION: 1. 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
== END 2018-04-15 10:26 | disposition home or self-care (01) ==
LOC: SPVIMAG 10:25
DX: M16.0 Bilateral primary osteoarthritis of hip (principal); M87.852 Other osteonecrosis, left femur; M41.86 Other forms of scoliosis, lumbar region; G95.89 Other specified diseases of spinal cord; M51.36 Other intervertebral disc degeneration, lumbar region; Z87.891 Personal history of nicotine dependence
CPT/HCPCS: 72100; 73521

== ENCOUNTER 2020-01-09 12:51 | Inpatient (IN) | payer OTHER ==
--- NOTE | 2020-01-09 14:06 | Emergency Department Report ---
Blank Doc - Documentation Documentation: 64-year-old male that presents with dark colored stool and was sent by PCP for low H/H. This initial assessment/diagnostic orders/clinical plan/treatment(s) is/are subject to change based on patient's health status, clinical progression and re- assessment by fellow clinical providers in the ED. Further treatment and workup at subsequent clinical providers discretion. Patient/guardians urged not to elope from the ED as their condition may be serious if not clinically assessed and managed. Initial orders include: 1- Patient sent to MAIN ED for further evaluation and treatment 2- labs 3- UA
[2020-01-09 15:35] LABS: Hemoglobin 6.1 gm/dl (11.8-15.2); Mean Corpuscular HGB Conc 32 % (32-34); Mean Corpuscular Volume 77 fl (84-94); Platelet Count 325 K/mm3 (140-440)
[2020-01-09 15:38] LABS: Red Cell Distribution Width 26.1 % (13.2-15.2)
[2020-01-09 15:39] LABS: Hematocrit 19.3 % (35.5-45.6)
[2020-01-09 15:56] LABS: Alanine Aminotransferase 12 units/L (7-56); Albumin 3.2 g/dL (3.9-5); BUN/Creatinine Ratio 19; Blood Urea Nitrogen 23 mg/dL (9-20); Calcium 8.6 mg/dL (8.4-10.2); Hemolysis Index 2
[2020-01-09 15:58] LABS: Bilirubin,Direct < 0.2 mg/dL (0-0.2)
[2020-01-09 16:17] LABS: Anisocytosis 1+; Basophils % (Manual) 0 % (0.0-1.8); Dimorphic RBC Yes; Eosinophils % (Manual) 3.2 % (0.0-4.3); Giant Platelets 1+; Hypochromasia 2+; Monocytes % (Manual) 4.2 % (0.0-7.3); Total Cells Counted 95
--- NOTE | 2020-01-09 16:53 | Emergency Department Report ---
ED GI Bleed HPI - General Chief complaint: GI Bleed Stated complaint: BLOOD LOW Time Seen by Provider: 01/09/20 14:05 Source: patient Mode of arrival: Ambulatory Limitations: No Limitations - History of Present Illness Initial comments: 64-year-old male presents to ED from Dr. Javier's office for evaluation of low hemoglobin. 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 Patient was given a prescription for Gleevec but was unable to get it. Patient presented for appointment with Dr. Javier today, blood work was done, patient was found to have a hemoglobin of 5.8. Patient reports dark black stool. complaint: melena -: This afternoon Quality: painless Consistency: intermittent Improves with: none Worsens with: none Context: history of GI bleed, other (hx gastric CA) Associated Symptoms: weakness - Related Data Previous Rx's Medication Instructions Recorded Last Taken Type Pantoprazole [Protonix] 40 mg PO BID #60 tablet 11/26/19 Unknown Rx lisinopriL [Zestril TAB] 40 mg PO QDAY #30 tablet 12/08/19 Unknown Rx Allergies Allergy/AdvReac Type Severity Reaction Status Date / Time No Known Allergies Allergy Unverified 04/17/17 06:44 ED Review of Systems ROS: Stated complaint: BLOOD LOW Other details as noted in HPI Comment: All other systems reviewed and negative Constitutional: denies: chills, fever Respiratory: denies: shortness of breath Gastrointestinal: melena. denies: abdominal pain ED Past Medical Hx - Past Medical History Previous Medical History?: Yes Hx Hypertension: Yes Hx Heart Attack/AMI: No Hx Congestive Heart Failure: No Hx Diabetes: No Hx Deep Vein Thrombosis: No Hx Liver Disease: No Hx Renal Disease: No Hx Sickle Cell Disease: No Hx Arthritis: Yes Hx Seizures: No Hx Asthma: No Hx COPD: No Additional medical history: Gastric CA, stage IV - Surgical History Past Surgical History?: Yes Hx Pacemaker: No Hx Internal Defibrillator: No Additional Surgical History: Left hip replacement - Social History Smoking Status: Never Smoker Substance Use Type: None - Medications Home Medications: Home Medications Medication Instructions Recorded Confirmed Last Taken Type Pantoprazole [Protonix] 40 mg PO BID #60 tablet 11/26/19 01/09/20 Unknown Rx lisinopriL [Zestril TAB] 40 mg PO QDAY #30 tablet 12/08/19 01/09/20 Unknown Rx ED Physical Exam - General Limitations: No Limitations General appearance: alert, in no apparent distress - Head Head exam: Present: atraumatic, normocephalic - Eye Eye exam: Present: EOMI, other (pale conjunctiva) - ENT ENT exam: Present: mucous membranes moist - Neck Neck exam: Present: normal inspection - Respiratory Respiratory exam: Present: normal lung sounds bilaterally. Absent: respiratory distress - Cardiovascular Cardiovascular Exam: Present: regular rate, normal rhythm - GI/Abdominal GI/Abdominal exam: Present: soft. Absent: distended, tenderness - Rectal Rectal exam: Present: heme (+) stool - Extremities Exam Extremities exam: Present: normal inspection - Neurological Exam Neurological exam: Present: alert, oriented X3 - Psychiatric Psychiatric exam: Present: normal affect, normal mood - Skin Skin exam: Present: warm, dry, intact, normal color ED Course Vital Signs 01/09/20 01/09/20 01/09/20 13:57 14:06 16:33 Temperature 98.3 F Pulse Rate 104 H 64 Respiratory 18 18 13 Rate Blood Pressure 138/74 O2 Sat by Pulse 100 Oximetry 01/09/20 01/09/20 01/09/20 17:00 17:30 18:00 Temperature Pulse Rate 85 74 65 Respiratory 10 L 15 21 Rate Blood Pressure 145/75 145/83 145/83 O2 Sat by Pulse 100 99 Oximetry 01/09/20 01/09/20 01/09/20 18:30 19:00 19:30 Temperature Pulse Rate 69 81 78 Respiratory 15 13 15 Rate Blood Pressure 136/73 134/78 134/78 O2 Sat by Pulse 100 100 100 Oximetry 01/09/20 01/09/20 01/09/20 20:00 20:30 21:00 Temperature Pulse Rate 67 65 69 Respiratory 16 14 17 Rate Blood Pressure 155/84 133/67 133/67 O2 Sat by Pulse 100 100 100 Oximetry 01/09/20 01/09/20 01/09/20 21:21 21:30 21:40 Temperature Pulse Rate 78 68 78 Respiratory 11 L 19 13 Rate Blood Pressure 139/68 145/70 145/70 O2 Sat by Pulse 100 100 100 Oximetry 01/09/20 01/09/20 01/09/20 22:00 22:30 23:00 Temperature Pulse Rate 72 64 84 Respiratory 23 22 17 Rate Blood Pressure 138/70 138/70 141/87 O2 Sat by Pulse 100 100 99 Oximetry 01/09/20 01/10/20 01/10/20 23:30 00:00 00:30 Temperature Pulse Rate 81 70 71 Respiratory 15 14 15 Rate Blood Pressure 132/79 127/67 113/64 O2 Sat by Pulse 99 100 100 Oximetry 01/10/20 01:00 Temperature 97.7 F Pulse Rate 80 Respiratory 18 Rate Blood Pressure 146/75 O2 Sat by Pulse 100 Oximetry - Consultations Consultation #1: 01/09/20 17:59 Spoke w/ Dr Floyd. Will see pt tomorrow. ED Medical Decision Making - Lab Data Result diagrams: 01/09/20 15:12 01/09/20 15:12 - Medical Decision Making - Hb 6.1 today; down from 7.9 on 11/28/19 - pt has metastatic GIST tumor - 2 units PRBCs ordered for transfusion - spoke w/ GI, will see pt tomorrow - will admit to hospitalist for further management - Differential Diagnosis anemia, malignancy Critical Care Time: Yes Critical care time in (mins) excluding proc time.: 35 Critical care attestation.: If time is entered above; I have spent that time in minutes in the direct care of this critically ill patient, excluding procedure time. Critical Care Time: 35 min ED Disposition Clinical Impression: GI bleed, Anemia Disposition: OP ADMIT IP TO THIS HOSP Is pt being admited?: Yes Condition: Stable Time of Disposition: 18:01
[2020-01-09] MEDS ORDERED: SODIUM CHLORIDE 0.9% 500 ML 500 ML IV ONE ×2 (17:38→20:45)
[2020-01-09] MEDS ORDERED: ALBUTEROL 2.5 MG/3 ML NEBU IH PRN (20:41)
[2020-01-09] MEDS ORDERED: ONDANSETRON 4 MG/2 ML INJ IV PRN (20:41)
[2020-01-09] MEDS ORDERED: SODIUM CHLORIDE 0.45% 1000 ML 1,000 ML IV SCH (21:00)
--- NOTE | 2020-01-09 21:00 | History and Physical Report ---
<FIONA AMEZCUA - Last Filed: 01/09/20 21:52> History of Present Illness Date of examination: 01/09/20 Date of admission: 01/09/2020 Chief complaint: Dark bloody stools History of present illness: 64-year-old -Maltese male recently diagnosed with gastric cancer (10/2019) with history of CHF with EF 35%, hypertension, arthritis, sepsis with ESBL who presents to [facility] ED with complaints of melena and anemia. Patient went to his oncologist office earlier today for follow-up care and was referred to the ED after lab work showed hemoglobin of 5.8 and patient complained of dark black stools. Patient denies shortness of breath, dizziness, headache, nausea, fever, or recent sick contact. Review of medical record shows patient was admitted in October 2019 at which time he was diagnosed with gastric cancer and treated for sepsis with ESBL. Patient required long-term IV antibiotic treatment which was completed around December 08, 2019. At the time of my examination patient sitting up in stretcher, awake, alert and oriented x3. He has no complaints at this time. Will admit for further evaluation and treatment. Past History Past Medical History: arthritis, cancer (gastric Stage IV), heart failure (EF 35%), hypertension, other (sepsis ESBL) Past Surgical History: total hip replacement (left) Social history: denies: smoking, alcohol abuse Family history: no significant family history Medications and Allergies Allergies Allergy/AdvReac Type Severity Reaction Status Date / Time No Known Allergies Allergy Unverified 04/17/17 06:44 Home Medications Medication Instructions Recorded Confirmed Last Taken Type Pantoprazole [Protonix] 40 mg PO BID #60 tablet 11/26/19 01/10/20 01/09/20 Rx lisinopriL [Zestril TAB] 40 mg PO QDAY #30 tablet 12/08/19 01/10/20 01/08/20 21:00 Rx Active Meds: Active Medications Albuterol (Proventil) 2.5 mg IH Q3HRT PRN PRN Reason: Shortness Of Breath Sodium Chloride (Nacl 0.9% 500 Ml) 500 mls @ 0 mls/hr IV ONCE ONE Stop: 01/09/20 20:46 Morphine Sulfate (Morphine) 2 mg IV Q4H PRN PRN Reason: Pain, Moderate (4-6) Ondansetron HCl (Zofran) 4 mg IV Q8H PRN PRN Reason: Nausea And Vomiting Pantoprazole Sodium (Protonix) 40 mg IV BID [facility]Z Sodium Chloride (Sodium Chloride Flush Syringe 10 Ml) 10 ml IV BID [facility]Z Sodium Chloride (Sodium Chloride Flush Syringe 10 Ml) 10 ml IV PRN PRN PRN Reason: LINE FLUSH Review of Systems All systems: negative Constitutional: fatigue Gastrointestinal: melena Exam - Physical Exam Narrative exam: Physical exam General appearance: Present: No acute distress, alert and oriented 3, male - EENT Eyes: Present: PERRL, EOM intact ENT: hearing intact, missing teeth - Neck Neck: Present: supple, normal ROM - Respiratory Respiratory effort: Non-labored Respiratory: Clear throughout - Cardiovascular Heart rate: 74 (bpm) Rhythm: Sinus rhythm Heart Sounds: Present: S1 & S2. Absent: rub, click - Extremities Extremities: no ischemia, pulses intact, - Peripheral Assessment Peripheral Pulses: within normal limits - Abdominal General gastrointestinal: soft, non-tender, normal bowel sounds, heme + stool - Integumentary Integumentary: Present: warm, dry - Musculoskeletal Musculoskeletal: Able to move all extremities -Neurological Neurological: CN II-XII intact - Psychiatric Psychiatric: cooperative - Constitutional Vitals: Temp Pulse Resp BP Pulse Ox 98.3 F 74 15 145/83 99 01/09/20 14:06 01/09/20 17:30 01/09/20 17:30 01/09/20 17:30 01/09/20 17:30 Results - Labs CBC & Chem 7: 01/09/20 15:12 01/09/20 15:12 Labs: Laboratory Last Values WBC 6.0 K/mm3 (4.5-11.0) 01/09/20 15:12 RBC 2.50 M/mm3 (3.65-5.03) L 01/09/20 15:12 Hgb 6.1 gm/dl (11.8-15.2) L 01/09/20 15:12 Hct 19.3 % (35.5-45.6) L* 01/09/20 15:12 MCV 77 fl (84-94) L 01/09/20 15:12 MCH 24 pg (28-32) L 01/09/20 15:12 MCHC 32 % (32-34) 01/09/20 15:12 RDW 26.1 % (13.2-15.2) H 01/09/20 15:12 Plt Count 325 K/mm3 (140-440) 01/09/20 15:12 Add Manual Diff Complete 01/09/20 15:12 Total Counted 95 01/09/20 15:12 Seg Neuts % (Manual) 85.3 % (40.0-70.0) H 01/09/20 15:12 Band Neutrophils % 0 % 01/09/20 15:12 Lymphocytes % (Manual) 7.4 % (13.4-35.0) L 01/09/20 15:12 Reactive Lymphs % (Man) 0 % 01/09/20 15:12 Monocytes % (Manual) 4.2 % (0.0-7.3) 01/09/20 15:12 Eosinophils % (Manual) 3.2 % (0.0-4.3) 01/09/20 15:12 Basophils % (Manual) 0 % (0.0-1.8) 01/09/20 15:12 Metamyelocytes % 0 % 01/09/20 15:12 Myelocytes % 0 % 01/09/20 15:12 Promyelocytes % 0 % 01/09/20 15:12 Blast Cells % 0 % 01/09/20 15:12 Nucleated RBC % Not Reportable 01/09/20 15:12 Seg Neutrophils # Man 5.1 K/mm3 (1.8-7.7) 01/09/20 15:12 Band Neutrophils # 0.0 K/mm3 01/09/20 15:12 Lymphocytes # (Manual) 0.4 K/mm3 (1.2-5.4) L 01/09/20 15:12 Abs React Lymphs (Man) 0.0 K/mm3 01/09/20 15:12 Monocytes # (Manual) 0.3 K/mm3 (0.0-0.8) 01/09/20 15:12 Eosinophils # (Manual) 0.2 K/mm3 (0.0-0.4) 01/09/20 15:12 Basophils # (Manual) 0.0 K/mm3 (0.0-0.1) 01/09/20 15:12 Metamyelocytes # 0.0 K/mm3 01/09/20 15:12 Myelocytes # 0.0 K/mm3 01/09/20 15:12 Promyelocytes # 0.0 K/mm3 01/09/20 15:12 Blast Cells # 0.0 K/mm3 01/09/20 15:12 WBC Morphology Not Reportable 01/09/20 15:12 Hypersegmented Neuts Not Reportable 01/09/20 15:12 Hyposegmented Neuts Not Reportable 01/09/20 15:12 Hypogranular Neuts Not Reportable 01/09/20 15:12 Smudge Cells Not Reportable 01/09/20 15:12 Toxic Granulation Not Reportable 01/09/20 15:12 Toxic Vacuolation Not Reportable 01/09/20 15:12 Dohle Bodies Not Reportable 01/09/20 15:12 Pelger-Huet Anomaly Not Reportable 01/09/20 15:12 Little Rods Not Reportable 01/09/20 15:12 Platelet Estimate Not Reportable 01/09/20 15:12 Clumped Platelets Not Reportable 01/09/20 15:12 Plt Clumps, EDTA Not Reportable 01/09/20 15:12 Large Platelets Not Reportable 01/09/20 15:12 Giant Platelets 1+ 01/09/20 15:12 Platelet Satelliting Not Reportable 01/09/20 15:12 Plt Morphology Comment Not Reportable 01/09/20 15:12 RBC Morphology Not Reportable 01/09/20 15:12 Dimorphic RBCs Yes 01/09/20 15:12 Polychromasia Not Reportable 01/09/20 15:12 Hypochromasia 2+ 01/09/20 15:12 Poikilocytosis Not Reportable 01/09/20 15:12 Anisocytosis 1+ 01/09/20 15:12 Microcytosis 1+ 01/09/20 15:12 Macrocytosis Not Reportable 01/09/20 15:12 Spherocytes Not Reportable 01/09/20 15:12 Pappenheimer Bodies Not Reportable 01/09/20 15:12 Sickle Cells Not Reportable 01/09/20 15:12 Target Cells Not Reportable 01/09/20 15:12 Tear Drop Cells Not Reportable 01/09/20 15:12 Ovalocytes Not Reportable 01/09/20 15:12 Helmet Cells Not Reportable 01/09/20 15:12 [place]ár[place] Bodies Not Reportable 01/09/20 15:12 [place] Rings Not Reportable 01/09/20 15:12 [place] Cells Not Reportable 01/09/20 15:12 Bite Cells Not Reportable 01/09/20 15:12 Crenated Cell Not Reportable 01/09/20 15:12 Elliptocytes 1+ 01/09/20 15:12 Acanthocytes (Spur) Not Reportable 01/09/20 15:12 Rouleaux Not Reportable 01/09/20 15:12 Hemoglobin C Crystals Not Reportable 01/09/20 15:12 Schistocytes Not Reportable 01/09/20 15:12 Malaria parasites Not Reportable 01/09/20 15:12 Valeriy Bodies Not Reportable 01/09/20 15:12 Hem Pathologist Commnt No 01/09/20 15:12 Sodium 139 mmol/L (137-145) 01/09/20 15:12 Potassium 4.7 mmol/L (3.6-5.0) 01/09/20 15:12 Chloride 101.6 mmol/L (98-107) 01/09/20 15:12 Carbon Dioxide 22 mmol/L (22-30) 01/09/20 15:12 Anion Gap 20 mmol/L 01/09/20 15:12 BUN 23 mg/dL (9-20) H 01/09/20 15:12 Creatinine 1.2 mg/dL (0.8-1.5) 01/09/20 15:12 Estimated GFR > 60 ml/min 01/09/20 15:12 BUN/Creatinine Ratio 19 % 01/09/20 15:12 Glucose 99 mg/dL (75-100) 01/09/20 15:12 Calcium 8.6 mg/dL (8.4-10.2) 01/09/20 15:12 Total Bilirubin 0.20 mg/dL (0.1-1.2) 01/09/20 15:12 Direct Bilirubin < 0.2 mg/dL (0-0.2) 01/09/20 15:12 Indirect Bilirubin 0.0 mg/dL 01/09/20 15:12 AST 19 units/L (5-40) 01/09/20 15:12 ALT 12 units/L (7-56) 01/09/20 15:12 Alkaline Phosphatase 76 units/L (35-129) 01/09/20 15:12 Total Protein 7.0 g/dL (6.3-8.2) 01/09/20 15:12 Albumin 3.2 g/dL (3.9-5) L 01/09/20 15:12 Albumin/Globulin Ratio 0.8 % 01/09/20 15:12 Lipase 25 units/L (13-60) 01/09/20 15:12 Blood Type A POSITIVE 01/09/20 15:15 Antibody Screen Negative 01/09/20 15:15 Assessment and Plan Assessment and plan: 64-year-old -Maltese male recently diagnosed with gastric cancer (10/2019) with history of CHF with EF 35%, hypertension, arthritis, sepsis with ESBL who presents to [facility] ED with complaints of melena and anemia. Acute on Chronic Anemia -Hx of stage IV gastric CA -Heme + stool -C/o melena -Hemoglobin on admission 6.1 -Hx of transfusions (10/2019) -1U PRBC ordered -Continue to monitor hemoglobin -Transfuse as needed -NPO -IV Protonix BID -GI consulted HTN -Monitor BP -Hold antihypertensive for now Gastric cancer -Stage IV -Diagnosed 10/2019 -Rec prescription for Gleevec, but did not fill it to date -Following Dr. Javier and [facility] as outpatient CHF -EF 35% -Resume HF meds when pt is no longer NPO and medication reconciliation has been updated DVT PPX -On SCD's Advance Directives: No VTE prophylaxis?: Mechanical Plan of care discussed with patient/family: Yes <ANDERSON JACOBSON - Last Filed: 01/10/20 05:16> History of Present Illness Date of admission: 01/09/20 20:41 Medications and Allergies Active Meds: Active Medications Albuterol (Proventil) 2.5 mg IH Q3HRT PRN PRN Reason: Shortness Of Breath Morphine Sulfate (Morphine) 2 mg IV Q4H PRN PRN Reason: Pain, Moderate (4-6) Ondansetron HCl (Zofran) 4 mg IV Q8H PRN PRN Reason: Nausea And Vomiting Pantoprazole Sodium (Protonix) 40 mg IV BID [facility] Last Admin: 01/09/20 22:46 Dose: 40 mg Documented by: Sodium Chloride (Sodium Chloride Flush Syringe 10 Ml) 10 ml IV BID [facility] Last Admin: 01/09/20 22:46 Dose: 10 ml Documented by: Sodium Chloride (Sodium Chloride Flush Syringe 10 Ml) 10 ml IV PRN PRN PRN Reason: LINE FLUSH Exam - Constitutional Vitals: Temp Pulse Resp BP Pulse Ox 97.7 F 80 17 146/75 100 01/10/20 01:00 01/10/20 01:00 01/10/20 01:03 01/10/20 01:00 01/10/20 01:00 Results - Labs CBC & Chem 7: 01/09/20 15:12 01/09/20 15:12 Labs: Laboratory Last Values WBC 6.0 K/mm3 (4.5-11.0) 01/09/20 15:12 RBC 2.50 M/mm3 (3.65-5.03) L 01/09/20 15:12 Hgb 6.1 gm/dl (11.8-15.2) L 01/09/20 15:12 Hct 19.3 % (35.5-45.6) L* 01/09/20 15:12 MCV 77 fl (84-94) L 01/09/20 15:12 MCH 24 pg (28-32) L 01/09/20 15:12 MCHC 32 % (32-34) 01/09/20 15:12 RDW 26.1 % (13.2-15.2) H 01/09/20 15:12 Plt Count 325 K/mm3 (140-440) 01/09/20 15:12 Add Manual Diff Complete 01/09/20 15:12 Total Counted 95 01/09/20 15:12 Seg Neuts % (Manual) 85.3 % (40.0-70.0) H 01/09/20 15:12 Band Neutrophils % 0 % 01/09/20 15:12 Lymphocytes % (Manual) 7.4 % (13.4-35.0) L 01/09/20 15:12 Reactive Lymphs % (Man) 0 % 01/09/20 15:12 Monocytes % (Manual) 4.2 % (0.0-7.3) 01/09/20 15:12 Eosinophils % (Manual) 3.2 % (0.0-4.3) 01/09/20 15:12 Basophils % (Manual) 0 % (0.0-1.8) 01/09/20 15:12 Metamyelocytes % 0 % 01/09/20 15:12 Myelocytes % 0 % 01/09/20 15:12 Promyelocytes % 0 % 01/09/20 15:12 Blast Cells % 0 % 01/09/20 15:12 Nucleated RBC % Not Reportable 01/09/20 15:12 Seg Neutrophils # Man 5.1 K/mm3 (1.8-7.7) 01/09/20 15:12 Band Neutrophils # 0.0 K/mm3 01/09/20 15:12 Lymphocytes # (Manual) 0.4 K/mm3 (1.2-5.4) L 01/09/20 15:12 Abs React Lymphs (Man) 0.0 K/mm3 01/09/20 15:12 Monocytes # (Manual) 0.3 K/mm3 (0.0-0.8) 01/09/20 15:12 Eosinophils # (Manual) 0.2 K/mm3 (0.0-0.4) 01/09/20 15:12 Basophils # (Manual) 0.0 K/mm3 (0.0-0.1) 01/09/20 15:12 Metamyelocytes # 0.0 K/mm3 01/09/20 15:12 Myelocytes # 0.0 K/mm3 01/09/20 15:12 Promyelocytes # 0.0 K/mm3 01/09/20 15:12 Blast Cells # 0.0 K/mm3 01/09/20 15:12 WBC Morphology Not Reportable 01/09/20 15:12 Hypersegmented Neuts Not Reportable 01/09/20 15:12 Hyposegmented Neuts Not Reportable 01/09/20 15:12 Hypogranular Neuts Not Reportable 01/09/20 15:12 Smudge Cells Not Reportable 01/09/20 15:12 Toxic Granulation Not Reportable 01/09/20 15:12 Toxic Vacuolation Not Reportable 01/09/20 15:12 Dohle Bodies Not Reportable 01/09/20 15:12 Pelger-Huet Anomaly Not Reportable 01/09/20 15:12 Little Rods Not Reportable 01/09/20 15:12 Platelet Estimate Not Reportable 01/09/20 15:12 Clumped Platelets Not Reportable 01/09/20 15:12 Plt Clumps, EDTA Not Reportable 01/09/20 15:12 Large Platelets Not Reportable 01/09/20 15:12 Giant Platelets 1+ 01/09/20 15:12 Platelet Satelliting Not Reportable 01/09/20 15:12 Plt Morphology Comment Not Reportable 01/09/20 15:12 RBC Morphology Not Reportable 01/09/20 15:12 Dimorphic RBCs Yes 01/09/20 15:12 Polychromasia Not Reportable 01/09/20 15:12 Hypochromasia 2+ 01/09/20 15:12 Poikilocytosis Not Reportable 01/09/20 15:12 Anisocytosis 1+ 01/09/20 15:12 Microcytosis 1+ 01/09/20 15:12 Macrocytosis Not Reportable 01/09/20 15:12 Spherocytes Not Reportable 01/09/20 15:12 Pappenheimer Bodies Not Reportable 01/09/20 15:12 Sickle Cells Not Reportable 01/09/20 15:12 Target Cells Not Reportable 01/09/20 15:12 Tear Drop Cells Not Reportable 01/09/20 15:12 Ovalocytes Not Reportable 01/09/20 15:12 Helmet Cells Not Reportable 01/09/20 15:12 Márquez-[place] Bodies Not Reportable 01/09/20 15:12 [place] Rings Not Reportable 01/09/20 15:12 [place] Cells Not Reportable 01/09/20 15:12 Bite Cells Not Reportable 01/09/20 15:12 Crenated Cell Not Reportable 01/09/20 15:12 Elliptocytes 1+ 01/09/20 15:12 Acanthocytes (Spur) Not Reportable 01/09/20 15:12 Rouleaux Not Reportable 01/09/20 15:12 Hemoglobin C Crystals Not Reportable 01/09/20 15:12 Schistocytes Not Reportable 01/09/20 15:12 Malaria parasites Not Reportable 01/09/20 15:12 Valeriy Bodies Not Reportable 01/09/20 15:12 Hem Pathologist Commnt No 01/09/20 15:12 Sodium 139 mmol/L (137-145) 01/09/20 15:12 Potassium 4.7 mmol/L (3.6-5.0) 01/09/20 15:12 Chloride 101.6 mmol/L (98-107) 01/09/20 15:12 Carbon Dioxide 22 mmol/L (22-30) 01/09/20 15:12 Anion Gap 20 mmol/L 01/09/20 15:12 BUN 23 mg/dL (9-20) H 01/09/20 15:12 Creatinine 1.2 mg/dL (0.8-1.5) 01/09/20 15:12 Estimated GFR > 60 ml/min 01/09/20 15:12 BUN/Creatinine Ratio 19 % 01/09/20 15:12 Glucose 99 mg/dL (75-100) 01/09/20 15:12 Calcium 8.6 mg/dL (8.4-10.2) 01/09/20 15:12 Total Bilirubin 0.20 mg/dL (0.1-1.2) 01/09/20 15:12 Direct Bilirubin < 0.2 mg/dL (0-0.2) 01/09/20 15:12 Indirect Bilirubin 0.0 mg/dL 01/09/20 15:12 AST 19 units/L (5-40) 01/09/20 15:12 ALT 12 units/L (7-56) 01/09/20 15:12 Alkaline Phosphatase 76 units/L (35-129) 01/09/20 15:12 Total Protein 7.0 g/dL (6.3-8.2) 01/09/20 15:12 Albumin 3.2 g/dL (3.9-5) L 01/09/20 15:12 Albumin/Globulin Ratio 0.8 % 01/09/20 15:12 Lipase 25 units/L (13-60) 01/09/20 15:12 Blood Type A POSITIVE 01/09/20 15:15 Antibody Screen Negative 01/09/20 15:15 Assessment and Plan Assessment and plan: Patient seen and examined, discussed with NUCLEAR PHARMACIST, agree with plan as stated above
[2020-01-09] MEDS ORDERED: PANTOPRAZOLE 40 MG INJ IV ONE (22:39)
[2020-01-09] MEDS: PANTOPRAZOLE 40 MG INJ IV SCH (22:46)
[2020-01-10 06:05] LABS: Mean Corpuscular HGB Conc 31 % (32-34); Mean Corpuscular Volume 77 fl (84-94); Platelet Count 265 K/mm3 (140-440); Red Blood Count 2.24 M/mm3 (3.65-5.03)
[2020-01-10 06:08] LABS: Red Cell Distribution Width 26.3 % (13.2-15.2)
[2020-01-10 06:18] LABS: Hematocrit 17.3 % (35.5-45.6); Hemoglobin 5.3 gm/dl (11.8-15.2)
[2020-01-10 06:21] LABS: BUN/Creatinine Ratio 19; Blood Urea Nitrogen 19 mg/dL (9-20); Calcium 8.5 mg/dL (8.4-10.2); Hemolysis Index 0
[2020-01-10] MEDS ORDERED: SODIUM CHLORIDE 0.9% 500 ML 500 ML IV ONE ×2 (06:25→06:35)
--- NOTE | 2020-01-10 06:38 | Event Note ---
Date: 01/10/20 System glitch ED physician ordered 1 unit PRBC, and I ordered 1 unit PRBC for total of 2 units PRBC to be transfused. Order was canceled via system [facility] and I was not notified. Attempted to reorder 2 units PRBC and please call to blood bank. Blood bank unable to see order this is been escalated up to sales service route manager and they are working to manually put in orders so patient can receive blood.
[2020-01-10 06:45] LABS: Anisocytosis 3+; Basophils % (Manual) 0 % (0.0-1.8); Hypochromasia 1+; Total Cells Counted 100
[2020-01-10 06:49] LABS: Dimorphic RBC Yes; Giant Platelets Rare; Platelet Estimate Consistent w Auto
--- NOTE | 2020-01-10 07:33 | Event Note ---
Date: 01/10/20 gist h/o dark stools likely upper GI mass bleed pt waiting for Gleevec - financial assistance
--- NOTE | 2020-01-10 08:11 | Hem/Onc Consultation ---
History of Present Illness - Reason for Consult Consult date: 01/10/20 anemia Requesting physician: NETO REILLY - History of Present Illness weakness - dark stools Past History Past Medical History: arthritis, cancer (GIST), heart failure (EF 35%), hypertension, other (sepsis ESBL) Past Surgical History: total hip replacement (left) Social history: denies: smoking, alcohol abuse Family history: no significant family history Medications and Allergies Allergies Allergy/AdvReac Type Severity Reaction Status Date / Time No Known Allergies Allergy Unverified 04/17/17 06:44 Home Medications Medication Instructions Recorded Confirmed Last Taken Type Pantoprazole [Protonix] 40 mg PO BID #60 tablet 11/26/19 01/10/20 01/09/20 Rx lisinopriL [Zestril TAB] 40 mg PO QDAY #30 tablet 12/08/19 01/10/20 01/08/20 21:00 Rx Active Meds: Active Medications Albuterol (Proventil) 2.5 mg IH Q3HRT PRN PRN Reason: Shortness Of Breath Morphine Sulfate (Morphine) 2 mg IV Q4H PRN PRN Reason: Pain, Moderate (4-6) Ondansetron HCl (Zofran) 4 mg IV Q8H PRN PRN Reason: Nausea And Vomiting Pantoprazole Sodium (Protonix) 40 mg IV BID [facility] Last Admin: 01/09/20 22:46 Dose: 40 mg Documented by: Sodium Chloride (Sodium Chloride Flush Syringe 10 Ml) 10 ml IV BID [facility] Last Admin: 01/09/20 22:46 Dose: 10 ml Documented by: Sodium Chloride (Sodium Chloride Flush Syringe 10 Ml) 10 ml IV PRN PRN PRN Reason: LINE FLUSH Review of Systems Constitutional: weakness, lethargy Ears, nose, mouth and throat: no epistaxis, no bleeding gums Cardiovascular: dyspnea on exertion Respiratory: shortness of breath Gastrointestinal: no vomiting Genitourinary Male: no hematuria Rectal: other (dark stools) Musculoskeletal: no frequent falls Integumentary: no rash Neurological: no head injury Hematologic/Lymphatic: no easy bruising Exam - Exam Narrative Exam: Vitals were reviewed. 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 -alert awake oriented - Constitutional Vitals: Last Vital Signs Temp 98.7 F 01/10/20 07:49 Pulse 60 01/10/20 07:49 Resp 18 01/10/20 07:49 BP 155/73 01/10/20 07:49 Pulse Ox 96 01/10/20 07:49 Results - Labs lab Results: Laboratory Results - last 24 hr 01/09/20 01/09/20 01/09/20 15:12 15:12 15:15 WBC 6.0 RBC 2.50 L Hgb 6.1 L Hct 19.3 L* MCV 77 L MCH 24 L MCHC 32 RDW 26.1 H Plt Count 325 Add Manual Diff Complete Total Counted 95 Seg Neuts % (Manual) 85.3 H Band Neutrophils % 0 Lymphocytes % (Manual) 7.4 L Reactive Lymphs % (Man) 0 Monocytes % (Manual) 4.2 Eosinophils % (Manual) 3.2 Basophils % (Manual) 0 Metamyelocytes % 0 Myelocytes % 0 Promyelocytes % 0 Blast Cells % 0 Nucleated RBC % Not Reportable Seg Neutrophils # Man 5.1 Band Neutrophils # 0.0 Lymphocytes # (Manual) 0.4 L Abs React Lymphs (Man) 0.0 Monocytes # (Manual) 0.3 Eosinophils # (Manual) 0.2 Basophils # (Manual) 0.0 Metamyelocytes # 0.0 Myelocytes # 0.0 Promyelocytes # 0.0 Blast Cells # 0.0 WBC Morphology Not Reportable Hypersegmented Neuts Not Reportable Hyposegmented Neuts Not Reportable Hypogranular Neuts Not Reportable Smudge Cells Not Reportable Toxic Granulation Not Reportable Toxic Vacuolation Not Reportable Dohle Bodies Not Reportable Pelger-Huet Anomaly Not Reportable Little Rods Not Reportable Platelet Estimate Not Reportable Clumped Platelets Not Reportable Plt Clumps, EDTA Not Reportable Large Platelets Not Reportable Giant Platelets 1+ Platelet Satelliting Not Reportable Plt Morphology Comment Not Reportable RBC Morphology Not Reportable Dimorphic RBCs Yes Polychromasia Not Reportable Hypochromasia 2+ Poikilocytosis Not Reportable Anisocytosis 1+ Microcytosis 1+ Macrocytosis Not Reportable Spherocytes Not Reportable Pappenheimer Bodies Not Reportable Sickle Cells Not Reportable Target Cells Not Reportable Tear Drop Cells Not Reportable Ovalocytes Not Reportable Helmet Cells Not Reportable [place]ár[place] Bodies Not Reportable [place] Rings Not Reportable [place] Cells Not Reportable Bite Cells Not Reportable Crenated Cell Not Reportable Elliptocytes 1+ Acanthocytes (Spur) Not Reportable Rouleaux Not Reportable Hemoglobin C Crystals Not Reportable Schistocytes Not Reportable Malaria parasites Not Reportable Valeriy Bodies Not Reportable Hem Pathologist Commnt No Sodium 139 Potassium 4.7 Chloride 101.6 Carbon Dioxide 22 Anion Gap 20 BUN 23 H Creatinine 1.2 Estimated GFR > 60 BUN/Creatinine Ratio 19 Glucose 99 Calcium 8.6 Total Bilirubin 0.20 Direct Bilirubin < 0.2 Indirect Bilirubin 0.0 AST 19 ALT 12 Alkaline Phosphatase 76 Total Protein 7.0 Albumin 3.2 L Albumin/Globulin Ratio 0.8 Lipase 25 Blood Type A POSITIVE Antibody Screen Negative Crossmatch 01/10/20 01/10/20 01/10/20 05:27 05:27 06:00 WBC 4.6 RBC 2.24 L Hgb 5.3 L* Hct 17.3 L* MCV 77 L MCH 24 L MCHC 31 L RDW 26.3 H Plt Count 265 Add Manual Diff Complete Total Counted 100 Seg Neuts % (Manual) 69.0 Band Neutrophils % 1.0 Lymphocytes % (Manual) 19.0 Reactive Lymphs % (Man) 0 Monocytes % (Manual) 10.0 H Eosinophils % (Manual) 1.0 Basophils % (Manual) 0 Metamyelocytes % 0 Myelocytes % 0 Promyelocytes % 0 Blast Cells % 0 Nucleated RBC % Not Reportable Seg Neutrophils # Man 3.2 Band Neutrophils # 0.0 Lymphocytes # (Manual) 0.9 L Abs React Lymphs (Man) 0.0 Monocytes # (Manual) 0.5 Eosinophils # (Manual) 0.0 Basophils # (Manual) 0.0 Metamyelocytes # 0.0 Myelocytes # 0.0 Promyelocytes # 0.0 Blast Cells # 0.0 WBC Morphology Not Reportable Hypersegmented Neuts Not Reportable Hyposegmented Neuts Not Reportable Hypogranular Neuts Not Reportable Smudge Cells Not Reportable Toxic Granulation Not Reportable Toxic Vacuolation Not Reportable Dohle Bodies Not Reportable Pelger-Huet Anomaly Not Reportable Little Rods Not Reportable Platelet Estimate Consistent w auto Clumped Platelets Not Reportable Plt Clumps, EDTA Not Reportable Large Platelets Not Reportable Giant Platelets Rare Platelet Satelliting Not Reportable Plt Morphology Comment Not Reportable RBC Morphology Not Reportable Dimorphic RBCs Yes Polychromasia Not Reportable Hypochromasia 1+ Poikilocytosis Not Reportable Anisocytosis 3+ Microcytosis Few Macrocytosis Not Reportable Spherocytes Not Reportable Pappenheimer Bodies Not Reportable Sickle Cells Not Reportable Target Cells Not Reportable Tear Drop Cells Not Reportable Ovalocytes Not Reportable Helmet Cells Not Reportable [place]ár[place] Bodies Not Reportable [place] Rings Not Reportable [place] Cells Not Reportable Bite Cells Not Reportable Crenated Cell Not Reportable Elliptocytes Few Acanthocytes (Spur) Not Reportable Rouleaux Not Reportable Hemoglobin C Crystals Not Reportable Schistocytes Not Reportable Malaria parasites Not Reportable Valeriy Bodies Not Reportable Hem Pathologist Commnt No Sodium 139 Potassium 4.4 Chloride 104.4 Carbon Dioxide 24 Anion Gap 15 BUN 19 Creatinine 1.0 Estimated GFR > 60 BUN/Creatinine Ratio 19 Glucose 96 Calcium 8.5 Total Bilirubin Direct Bilirubin Indirect Bilirubin AST ALT Alkaline Phosphatase Total Protein Albumin Albumin/Globulin Ratio Lipase Blood Type Antibody Screen Crossmatch See Detail Assessment and Plan I had seen the patient in the clinic. His hemoglobin was found to be low and he was sent to the hospital. 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 He is awaiting prescription of Gleevec he is awaiting for a financial assistance for same. For anemia transfusion support planned His bleeding likely is from upper GI source. He will need GI evaluation. liver lesions likely next history of microcytic anemia like WALDO In the past CEA and CA 19 normal. - Patient Problems (1) GIST, malignant Current Visit: Yes Status: Acute
[2020-01-10] MEDS: PANTOPRAZOLE 40 MG INJ IV SCH ×2 (10:36→21:50)
--- NOTE | 2020-01-10 10:49 | Gastroenterology Consultation ---
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 Javier) yesterday for symptomatic anemia and melena to which GI has been consulted. Patient is previously known to our service from prior hospitalization in October 2019 for similar symptoms. He underwent an EGD at that time that revealed a large gastric submucosal mass in the gastric body with 4 small ulcerations in the submucosal mass with residual blood in the stomach (bx obtained which caused the mass to start bleeding; injected with epinephrine with hemostasis attained), 2cm hiatal hernia, and esophagitis in the distal esophagus, along with a liver bx of hepatic lesions with path confirming GIST. This morning patient was resting in bed w/o acute distress. He reports continued intermittent melena since previous hospital discharge with last episode yesterday. No hematemesis, hematochezia, or active signs of bleeding this am. Admits to continued epigastric discomfort with no change and wt loss. Denies CP, SOB, N/V, diarrhea, or constipation. Compliant with daily PPI. No blood thinning medications. Tolerating diet at home. Past History Past Medical History: other (see HPI) Past Surgical History: total hip replacement (left) Social history: denies: smoking, alcohol abuse Medications and Allergies Allergies Allergy/AdvReac Type Severity Reaction Status Date / Time No Known Allergies Allergy Unverified 04/17/17 06:44 Home Medications Medication Instructions Recorded Confirmed Last Taken Type Pantoprazole [Protonix] 40 mg PO BID #60 tablet 11/26/19 01/10/20 01/09/20 Rx lisinopriL [Zestril TAB] 40 mg PO QDAY #30 tablet 12/08/19 01/10/20 01/08/20 21:00 Rx Active Meds: Active Medications Albuterol (Proventil) 2.5 mg IH Q3HRT PRN PRN Reason: Shortness Of Breath Morphine Sulfate (Morphine) 2 mg IV Q4H PRN PRN Reason: Pain, Moderate (4-6) Ondansetron HCl (Zofran) 4 mg IV Q8H PRN PRN Reason: Nausea And Vomiting Pantoprazole Sodium (Protonix) 40 mg IV BID [facility] Last Admin: 01/10/20 10:36 Dose: 40 mg Documented by: Sodium Chloride (Sodium Chloride Flush Syringe 10 Ml) 10 ml IV BID [facility] Last Admin: 01/10/20 10:36 Dose: 10 ml Documented by: Sodium Chloride (Sodium Chloride Flush Syringe 10 Ml) 10 ml IV PRN PRN PRN Reason: LINE FLUSH medications reviewed/updated as required Review of Systems - Review of Systems All systems: negative Constitutional: weight loss, weakness Gastrointestinal: abdominal pain (epigastric), melena Exam - Constitutional Vital Signs: Temp Pulse Resp BP Pulse Ox 99.2 F 73 20 151/70 99 01/10/20 10:29 01/10/20 10:29 01/10/20 10:29 01/10/20 10:29 01/10/20 10:29 General appearance: no acute distress, other (thin appearing) - EENT Eyes: PERRL, EOM intact ENT: hearing intact - Respiratory Respiratory effort: normal - Cardiovascular Rhythm: regular - Gastrointestinal General gastrointestinal: Present: soft, tender (slight TTP in epigastric area), non-distended, normal bowel sounds - Integumentary Integumentary: Present: warm, dry - Neurologic Neurological: alert and oriented x3 - Labs CBC & Chem 7: 01/10/20 05:27 01/10/20 05:27 Lab Results: Laboratory Results - last 24 hr 01/09/20 01/09/20 01/09/20 15:12 15:12 15:15 WBC 6.0 RBC 2.50 L Hgb 6.1 L Hct 19.3 L* MCV 77 L MCH 24 L MCHC 32 RDW 26.1 H Plt Count 325 Add Manual Diff Complete Total Counted 95 Seg Neuts % (Manual) 85.3 H Band Neutrophils % 0 Lymphocytes % (Manual) 7.4 L Reactive Lymphs % (Man) 0 Monocytes % (Manual) 4.2 Eosinophils % (Manual) 3.2 Basophils % (Manual) 0 Metamyelocytes % 0 Myelocytes % 0 Promyelocytes % 0 Blast Cells % 0 Nucleated RBC % Not Reportable Seg Neutrophils # Man 5.1 Band Neutrophils # 0.0 Lymphocytes # (Manual) 0.4 L Abs React Lymphs (Man) 0.0 Monocytes # (Manual) 0.3 Eosinophils # (Manual) 0.2 Basophils # (Manual) 0.0 Metamyelocytes # 0.0 Myelocytes # 0.0 Promyelocytes # 0.0 Blast Cells # 0.0 WBC Morphology Not Reportable Hypersegmented Neuts Not Reportable Hyposegmented Neuts Not Reportable Hypogranular Neuts Not Reportable Smudge Cells Not Reportable Toxic Granulation Not Reportable Toxic Vacuolation Not Reportable Dohle Bodies Not Reportable Pelger-Huet Anomaly Not Reportable Little Rods Not Reportable Platelet Estimate Not Reportable Clumped Platelets Not Reportable Plt Clumps, EDTA Not Reportable Large Platelets Not Reportable Giant Platelets 1+ Platelet Satelliting Not Reportable Plt Morphology Comment Not Reportable RBC Morphology Not Reportable Dimorphic RBCs Yes Polychromasia Not Reportable Hypochromasia 2+ Poikilocytosis Not Reportable Anisocytosis 1+ Microcytosis 1+ Macrocytosis Not Reportable Spherocytes Not Reportable Pappenheimer Bodies Not Reportable Sickle Cells Not Reportable Target Cells Not Reportable Tear Drop Cells Not Reportable Ovalocytes Not Reportable Helmet Cells Not Reportable Márquez-Sachse Bodies Not Reportable Termo Rings Not Reportable [place] Cells Not Reportable Bite Cells Not Reportable Crenated Cell Not Reportable Elliptocytes 1+ Acanthocytes (Spur) Not Reportable Rouleaux Not Reportable Hemoglobin C Crystals Not Reportable Schistocytes Not Reportable Malaria parasites Not Reportable Valeriy Bodies Not Reportable Hem Pathologist Commnt No Sodium 139 Potassium 4.7 Chloride 101.6 Carbon Dioxide 22 Anion Gap 20 BUN 23 H Creatinine 1.2 Estimated GFR > 60 BUN/Creatinine Ratio 19 Glucose 99 Calcium 8.6 Total Bilirubin 0.20 Direct Bilirubin < 0.2 Indirect Bilirubin 0.0 AST 19 ALT 12 Alkaline Phosphatase 76 Total Protein 7.0 Albumin 3.2 L Albumin/Globulin Ratio 0.8 Lipase 25 Blood Type A POSITIVE Antibody Screen Negative Crossmatch 01/10/20 01/10/20 01/10/20 05:27 05:27 06:00 WBC 4.6 RBC 2.24 L Hgb 5.3 L* Hct 17.3 L* MCV 77 L MCH 24 L MCHC 31 L RDW 26.3 H Plt Count 265 Add Manual Diff Complete Total Counted 100 Seg Neuts % (Manual) 69.0 Band Neutrophils % 1.0 Lymphocytes % (Manual) 19.0 Reactive Lymphs % (Man) 0 Monocytes % (Manual) 10.0 H Eosinophils % (Manual) 1.0 Basophils % (Manual) 0 Metamyelocytes % 0 Myelocytes % 0 Promyelocytes % 0 Blast Cells % 0 Nucleated RBC % Not Reportable Seg Neutrophils # Man 3.2 Band Neutrophils # 0.0 Lymphocytes # (Manual) 0.9 L Abs React Lymphs (Man) 0.0 Monocytes # (Manual) 0.5 Eosinophils # (Manual) 0.0 Basophils # (Manual) 0.0 Metamyelocytes # 0.0 Myelocytes # 0.0 Promyelocytes # 0.0 Blast Cells # 0.0 WBC Morphology Not Reportable Hypersegmented Neuts Not Reportable Hyposegmented Neuts Not Reportable Hypogranular Neuts Not Reportable Smudge Cells Not Reportable Toxic Granulation Not Reportable Toxic Vacuolation Not Reportable Dohle Bodies Not Reportable Pelger-Huet Anomaly Not Reportable Little Rods Not Reportable Platelet Estimate Consistent w auto Clumped Platelets Not Reportable Plt Clumps, EDTA Not Reportable Large Platelets Not Reportable Giant Platelets Rare Platelet Satelliting Not Reportable Plt Morphology Comment Not Reportable RBC Morphology Not Reportable Dimorphic RBCs Yes Polychromasia Not Reportable Hypochromasia 1+ Poikilocytosis Not Reportable Anisocytosis 3+ Microcytosis Few Macrocytosis Not Reportable Spherocytes Not Reportable Pappenheimer Bodies Not Reportable Sickle Cells Not Reportable Target Cells Not Reportable Tear Drop Cells Not Reportable Ovalocytes Not Reportable Helmet Cells Not Reportable Márquez-Sachse Bodies Not Reportable Termo Rings Not Reportable [place]anni Cells Not Reportable Bite Cells Not Reportable Crenated Cell Not Reportable Elliptocytes Few Acanthocytes (Spur) Not Reportable Rouleaux Not Reportable Hemoglobin C Crystals Not Reportable Schistocytes Not Reportable Malaria parasites Not Reportable Valeriy Bodies Not Reportable Hem Pathologist Commnt No Sodium 139 Potassium 4.4 Chloride 104.4 Carbon Dioxide 24 Anion Gap 15 BUN 19 Creatinine 1.0 Estimated GFR > 60 BUN/Creatinine Ratio 19 Glucose 96 Calcium 8.5 Total Bilirubin Direct Bilirubin Indirect Bilirubin AST ALT Alkaline Phosphatase Total Protein Albumin Albumin/Globulin Ratio Lipase Blood Type Antibody Screen Crossmatch See Detail Assessment and Plan 1.symptomatic anemia 2.recurrent melena 3.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) -H/H 5.3/17.3-currently receiving blood transfusion -continue to monitor H/H and transfuse as needed -reports continue intermittent melena since prior hospital discharge 10/2019 with last episode yesterday; no hematemesis, hematochezia, or active signs of bleeding this am -s/p EGD 11/23/19 that showed a large gastric submucosal mass in the gastric body (unable to determine which portion of the gastric body originated from due to size of the mass) with 4 small ulcerations in the submucosal mass with residual blood in the stomach (bx obtained which caused the mass to start bleeding; injected with epinephrine with hemostasis attained), 2cm hiatal hernia, and esophagitis in the distal esophagus (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 Has continue chronic epigastric discomfort w/o change. No N/V. Requesting diet. -oncology following -no plan for repeat scope- control of bleeding not amendable endoscopically -continue conservative management with PPI and blood transfusions PRN -for overt bleeding, recommend IR consult for possible embolization -diet as tolerated -continue supportive care -will follow <PATRICIO KIMBALL - Last Filed: 01/10/20 16:15> Medications and Allergies Active Meds: Active Medications Albuterol (Proventil) 2.5 mg IH Q3HRT PRN PRN Reason: Shortness Of Breath Morphine Sulfate (Morphine) 2 mg IV Q4H PRN PRN Reason: Pain, Moderate (4-6) Last Admin: 01/10/20 15:40 Dose: 2 mg Documented by: Ondansetron HCl (Zofran) 4 mg IV Q8H PRN PRN Reason: Nausea And Vomiting Pantoprazole Sodium (Protonix) 40 mg IV BID [facility] Last Admin: 01/10/20 10:36 Dose: 40 mg Documented by: Sodium Chloride (Sodium Chloride Flush Syringe 10 Ml) 10 ml IV BID [facility] Last Admin: 01/10/20 10:36 Dose: 10 ml Documented by: Sodium Chloride (Sodium Chloride Flush Syringe 10 Ml) 10 ml IV PRN PRN PRN Reason: LINE FLUSH Exam - Constitutional Vital Signs: Temp Pulse Resp BP Pulse Ox 98.8 F 75 20 163/80 99 01/10/20 15:50 01/10/20 15:50 01/10/20 15:50 01/10/20 15:50 01/10/20 15:50 - Labs CBC & Chem 7: 01/10/20 05:27 01/10/20 05:27 Lab Results: Laboratory Results - last 24 hr 01/09/20 01/10/20 01/10/20 15:12 05:27 05:27 WBC 4.6 RBC 2.24 L Hgb 5.3 L* Hct 17.3 L* MCV 77 L MCH 24 L MCHC 31 L RDW 26.3 H Plt Count 265 Add Manual Diff Complete Complete Total Counted 95 100 Seg Neuts % (Manual) 85.3 H 69.0 Band Neutrophils % 0 1.0 Lymphocytes % (Manual) 7.4 L 19.0 Reactive Lymphs % (Man) 0 0 Monocytes % (Manual) 4.2 10.0 H Eosinophils % (Manual) 3.2 1.0 Basophils % (Manual) 0 0 Metamyelocytes % 0 0 Myelocytes % 0 0 Promyelocytes % 0 0 Blast Cells % 0 0 Nucleated RBC % Not Reportable Not Reportable Seg Neutrophils # Man 5.1 3.2 Band Neutrophils # 0.0 0.0 Lymphocytes # (Manual) 0.4 L 0.9 L Abs React Lymphs (Man) 0.0 0.0 Monocytes # (Manual) 0.3 0.5 Eosinophils # (Manual) 0.2 0.0 Basophils # (Manual) 0.0 0.0 Metamyelocytes # 0.0 0.0 Myelocytes # 0.0 0.0 Promyelocytes # 0.0 0.0 Blast Cells # 0.0 0.0 WBC Morphology Not Reportable Not Reportable Hypersegmented Neuts Not Reportable Not Reportable Hyposegmented Neuts Not Reportable Not Reportable Hypogranular Neuts Not Reportable Not Reportable Smudge Cells Not Reportable Not Reportable Toxic Granulation Not Reportable Not Reportable Toxic Vacuolation Not Reportable Not Reportable Dohle Bodies Not Reportable Not Reportable Pelger-Huet Anomaly Not Reportable Not Reportable Little Rods Not Reportable Not Reportable Platelet Estimate Not Reportable Consistent w auto Clumped Platelets Not Reportable Not Reportable Plt Clumps, EDTA Not Reportable Not Reportable Large Platelets Not Reportable Not Reportable Giant Platelets 1+ Rare Platelet Satelliting Not Reportable Not Reportable Plt Morphology Comment Not Reportable Not Reportable RBC Morphology Not Reportable Not Reportable Dimorphic RBCs Yes Yes Polychromasia Not Reportable Not Reportable Hypochromasia 2+ 1+ Poikilocytosis Not Reportable Not Reportable Anisocytosis 1+ 3+ Microcytosis 1+ Few Macrocytosis Not Reportable Not Reportable Spherocytes Not Reportable Not Reportable Pappenheimer Bodies Not Reportable Not Reportable Sickle Cells Not Reportable Not Reportable Target Cells Not Reportable Not Reportable Tear Drop Cells Not Reportable Not Reportable Ovalocytes Not Reportable Not Reportable Helmet Cells Not Reportable Not Reportable Márquez-Sachse Bodies Not Reportable Not Reportable Termo Rings Not Reportable Not Reportable [place] Cells Not Reportable Not Reportable Bite Cells Not Reportable Not Reportable Crenated Cell Not Reportable Not Reportable Elliptocytes 1+ Few Acanthocytes (Spur) Not Reportable Not Reportable Rouleaux Not Reportable Not Reportable Hemoglobin C Crystals Not Reportable Not Reportable Schistocytes Not Reportable Not Reportable Malaria parasites Not Reportable Not Reportable Valeriy Bodies Not Reportable Not Reportable Hem Pathologist Commnt No No Sodium 139 Potassium 4.4 Chloride 104.4 Carbon Dioxide 24 Anion Gap 15 BUN 19 Creatinine 1.0 Estimated GFR > 60 BUN/Creatinine Ratio 19 Glucose 96 Calcium 8.5 Crossmatch 01/10/20 06:00 WBC RBC Hgb Hct MCV MCH MCHC RDW Plt Count Add Manual Diff Total Counted Seg Neuts % (Manual) Band Neutrophils % Lymphocytes % (Manual) Reactive Lymphs % (Man) Monocytes % (Manual) Eosinophils % (Manual) Basophils % (Manual) Metamyelocytes % Myelocytes % Promyelocytes % Blast Cells % Nucleated RBC % Seg Neutrophils # Man Band Neutrophils # Lymphocytes # (Manual) Abs React Lymphs (Man) Monocytes # (Manual) Eosinophils # (Manual) Basophils # (Manual) Metamyelocytes # Myelocytes # Promyelocytes # Blast Cells # WBC Morphology Hypersegmented Neuts Hyposegmented Neuts Hypogranular Neuts Smudge Cells Toxic Granulation Toxic Vacuolation Dohle Bodies Pelger-Huet Anomaly Little Rods Platelet Estimate Clumped Platelets Plt Clumps, EDTA Large Platelets Giant Platelets Platelet Satelliting Plt Morphology Comment RBC Morphology Dimorphic RBCs Polychromasia Hypochromasia Poikilocytosis Anisocytosis Microcytosis Macrocytosis Spherocytes Pappenheimer Bodies Sickle Cells Target Cells Tear Drop Cells Ovalocytes Helmet Cells Márquez-Sachse Bodies Termo Rings Danni Cells Bite Cells Crenated Cell Elliptocytes Acanthocytes (Spur) Rouleaux Hemoglobin C Crystals Schistocytes Malaria parasites Valeriy Bodies Hem Pathologist Commnt Sodium Potassium Chloride Carbon Dioxide Anion Gap BUN Creatinine Estimated GFR BUN/Creatinine Ratio Glucose Calcium Crossmatch See Detail Assessment and Plan Patient seen and examined; agree with note above. h/o large GIST; prior biopsies caused significant bleeding from october procedure. had some ulcerations at that time. likely source of recent bleeding. malignant tumor bleeding is not amenable to endoscopic treatment. supportive care/management as above.
[2020-01-10] MEDS: MORPHINE 2 MG/1 ML INJ IV PRN ×2 (15:40→21:56)
--- NOTE | 2020-01-10 16:36 | Progress Note ---
Assessment and Plan Assessment and plan: Patient is a 64-year-old -[place] male recently diagnosed with gastric cancer (10/2019) with history of CHF with EF 35%, hypertension, arthritis, sepsis with ESBL who presents to [facility] with complaints of melena and anemia. Acute on Chronic Anemia -Hx of stage IV gastric CA -Heme + stool -C/o melena -Hemoglobin on admission 6.1 -Hx of transfusions (10/2019) -1U PRBC ordered -Continue to monitor hemoglobin -Transfuse as needed -NPO -IV Protonix BID -GI consulted HTN -Monitor BP -Hold antihypertensive for now Gastric cancer -Stage IV -Diagnosed 10/2019 -Rec prescription for Gleevec, but did not fill it to date -Following Dr. Javier and [facility] as outpatient CHF -EF 35% -Resume HF meds when pt is no longer NPO and medication reconciliation has been updated DVT PPX -On SCD's Severe Malnutrition -consult Hydrodynamicist History Interval history: Patient was seen and examined. Follow-up on current diagnosis of Anemia. Overnight uneventful as no events directly reported to me. Patient denies any chest pain, shortness breath, nausea/vomiting or severe headaches. Imaging, nursing note, chart, labs and old chart reviewed. Discussed with patient. Hospitalist Physical - Physical exam Narrative exam: Gen: cachetic, chronically illappearing, NAD, Awake, Alert, Orientated HEENT: NCAT, severely sunken/cachetic hinduism muscle wasting PERRL, OP Clear Neck: supple, no adenopathy, no thyromegaly, no JVD CVS/Heart: RRR, normal S1S2, pulses present bilaterally Chest/Lungs: CTA B, Symmetrical chest expansion, good air entry bilaterally GI/Abdomen: soft, NTND, good bowel sounds, no guarding or rebound /Bladder: no suprapubic tenderness, no CVA or paraspinal tenderness Extermity/Skin: severe thenar and hypotenar muscle wasting, atropic limbs, poor mm MSK: FROM x 4 Neuro: CN 2-12 grossly intact, no new focal deficits Psych: calm - Constitutional Vitals: Temp Pulse Resp BP Pulse Ox 98.8 F 75 20 163/80 99 01/10/20 15:50 01/10/20 15:50 01/10/20 15:50 01/10/20 15:50 01/10/20 15:50 Results - Labs CBC & Chem 7: 01/10/20 05:27 01/10/20 05:27 Labs: Laboratory Last Values WBC 4.6 K/mm3 (4.5-11.0) 01/10/20 05:27 RBC 2.24 M/mm3 (3.65-5.03) L 01/10/20 05:27 Hgb 5.3 gm/dl (11.8-15.2) L* 01/10/20 05:27 Hct 17.3 % (35.5-45.6) L* 01/10/20 05:27 MCV 77 fl (84-94) L 01/10/20 05:27 MCH 24 pg (28-32) L 01/10/20 05:27 MCHC 31 % (32-34) L 01/10/20 05:27 RDW 26.3 % (13.2-15.2) H 01/10/20 05:27 Plt Count 265 K/mm3 (140-440) 01/10/20 05:27 Add Manual Diff Complete 01/10/20 05:27 Total Counted 100 01/10/20 05:27 Seg Neuts % (Manual) 69.0 % (40.0-70.0) 01/10/20 05:27 Band Neutrophils % 1.0 % 01/10/20 05:27 Lymphocytes % (Manual) 19.0 % (13.4-35.0) 01/10/20 05:27 Reactive Lymphs % (Man) 0 % 01/10/20 05:27 Monocytes % (Manual) 10.0 % (0.0-7.3) H 01/10/20 05:27 Eosinophils % (Manual) 1.0 % (0.0-4.3) 01/10/20 05:27 Basophils % (Manual) 0 % (0.0-1.8) 01/10/20 05:27 Metamyelocytes % 0 % 01/10/20 05:27 Myelocytes % 0 % 01/10/20 05:27 Promyelocytes % 0 % 01/10/20 05:27 Blast Cells % 0 % 01/10/20 05:27 Nucleated RBC % Not Reportable 01/10/20 05:27 Seg Neutrophils # Man 3.2 K/mm3 (1.8-7.7) 01/10/20 05:27 Band Neutrophils # 0.0 K/mm3 01/10/20 05:27 Lymphocytes # (Manual) 0.9 K/mm3 (1.2-5.4) L 01/10/20 05:27 Abs React Lymphs (Man) 0.0 K/mm3 01/10/20 05:27 Monocytes # (Manual) 0.5 K/mm3 (0.0-0.8) 01/10/20 05:27 Eosinophils # (Manual) 0.0 K/mm3 (0.0-0.4) 01/10/20 05:27 Basophils # (Manual) 0.0 K/mm3 (0.0-0.1) 01/10/20 05:27 Metamyelocytes # 0.0 K/mm3 01/10/20 05:27 Myelocytes # 0.0 K/mm3 01/10/20 05:27 Promyelocytes # 0.0 K/mm3 01/10/20 05:27 Blast Cells # 0.0 K/mm3 01/10/20 05:27 WBC Morphology Not Reportable 01/10/20 05:27 Hypersegmented Neuts Not Reportable 01/10/20 05:27 Hyposegmented Neuts Not Reportable 01/10/20 05:27 Hypogranular Neuts Not Reportable 01/10/20 05:27 Smudge Cells Not Reportable 01/10/20 05:27 Toxic Granulation Not Reportable 01/10/20 05:27 Toxic Vacuolation Not Reportable 01/10/20 05:27 Dohle Bodies Not Reportable 01/10/20 05:27 Pelger-Huet Anomaly Not Reportable 01/10/20 05:27 Little Rods Not Reportable 01/10/20 05:27 Platelet Estimate Consistent w auto 01/10/20 05:27 Clumped Platelets Not Reportable 01/10/20 05:27 Plt Clumps, EDTA Not Reportable 01/10/20 05:27 Large Platelets Not Reportable 01/10/20 05:27 Giant Platelets Rare 01/10/20 05:27 Platelet Satelliting Not Reportable 01/10/20 05:27 Plt Morphology Comment Not Reportable 01/10/20 05:27 RBC Morphology Not Reportable 01/10/20 05:27 Dimorphic RBCs Yes 01/10/20 05:27 Polychromasia Not Reportable 01/10/20 05:27 Hypochromasia 1+ 01/10/20 05:27 Poikilocytosis Not Reportable 01/10/20 05:27 Anisocytosis 3+ 01/10/20 05:27 Microcytosis Few 01/10/20 05:27 Macrocytosis Not Reportable 01/10/20 05:27 Spherocytes Not Reportable 01/10/20 05:27 Pappenheimer Bodies Not Reportable 01/10/20 05:27 Sickle Cells Not Reportable 01/10/20 05:27 Target Cells Not Reportable 01/10/20 05:27 Tear Drop Cells Not Reportable 01/10/20 05:27 Ovalocytes Not Reportable 01/10/20 05:27 Helmet Cells Not Reportable 01/10/20 05:27 Márquez-Grygla Bodies Not Reportable 01/10/20 05:27 [place] Rings Not Reportable 01/10/20 05:27 [place] Cells Not Reportable 01/10/20 05:27 Bite Cells Not Reportable 01/10/20 05:27 Crenated Cell Not Reportable 01/10/20 05:27 Elliptocytes Few 01/10/20 05:27 Acanthocytes (Spur) Not Reportable 01/10/20 05:27 Rouleaux Not Reportable 01/10/20 05:27 Hemoglobin C Crystals Not Reportable 01/10/20 05:27 Schistocytes Not Reportable 01/10/20 05:27 Malaria parasites Not Reportable 01/10/20 05:27 Valeriy Bodies Not Reportable 01/10/20 05:27 Hem Pathologist Commnt No 01/10/20 05:27 Sodium 139 mmol/L (137-145) 01/10/20 05:27 Potassium 4.4 mmol/L (3.6-5.0) 01/10/20 05:27 Chloride 104.4 mmol/L (98-107) 01/10/20 05:27 Carbon Dioxide 24 mmol/L (22-30) 01/10/20 05:27 Anion Gap 15 mmol/L 01/10/20 05:27 BUN 19 mg/dL (9-20) 01/10/20 05:27 Creatinine 1.0 mg/dL (0.8-1.5) 01/10/20 05:27 Estimated GFR > 60 ml/min 01/10/20 05:27 BUN/Creatinine Ratio 19 % 01/10/20 05:27 Glucose 96 mg/dL (75-100) 01/10/20 05:27 Calcium 8.5 mg/dL (8.4-10.2) 01/10/20 05:27 Total Bilirubin 0.20 mg/dL (0.1-1.2) 01/09/20 15:12 Direct Bilirubin < 0.2 mg/dL (0-0.2) 01/09/20 15:12 Indirect Bilirubin 0.0 mg/dL 01/09/20 15:12 AST 19 units/L (5-40) 01/09/20 15:12 ALT 12 units/L (7-56) 01/09/20 15:12 Alkaline Phosphatase 76 units/L (35-129) 01/09/20 15:12 Total Protein 7.0 g/dL (6.3-8.2) 01/09/20 15:12 Albumin 3.2 g/dL (3.9-5) L 01/09/20 15:12 Albumin/Globulin Ratio 0.8 % 01/09/20 15:12 Lipase 25 units/L (13-60) 01/09/20 15:12 Blood Type A POSITIVE 01/09/20 15:15 Antibody Screen Negative 01/09/20 15:15 Crossmatch See Detail 01/10/20 06:00 Active Medications - Current Medications Current Medications: Generic Name Dose Route Start Last Admin Trade Name Freq PRN Reason Stop Dose Admin Albuterol 2.5 mg 01/09/20 20:41 Proventil IH Q3HRT PRN Shortness Of Breath Morphine Sulfate 2 mg 01/09/20 20:43 01/10/20 15:40 Morphine IV 2 mg Q4H PRN Administration Pain, Moderate (4-6) Ondansetron HCl 4 mg 01/09/20 20:41 Zofran IV Q8H PRN Nausea And Vomiting Pantoprazole Sodium 40 mg 01/09/20 22:00 01/10/20 10:36 Protonix IV 40 mg BID LIZ Administration Sodium Chloride 10 ml 01/09/20 22:00 01/10/20 10:36 Sodium Chloride Flush Syringe 10 Ml IV 10 ml BID LIZ Administration Sodium Chloride 10 ml 01/09/20 20:41 Sodium Chloride Flush Syringe 10 Ml IV PRN PRN LINE FLUSH
[2020-01-11 04:45] LABS: Hematocrit 23.7 % (35.5-45.6); Hemoglobin 7.7 gm/dl (11.8-15.2); Mean Corpuscular HGB Conc 33 % (32-34); Mean Corpuscular Volume 80 fl (84-94); Platelet Count 305 K/mm3 (140-440); Red Blood Count 2.95 M/mm3 (3.65-5.03)
[2020-01-11 04:48] LABS: Red Cell Distribution Width 22.8 % (13.2-15.2)
[2020-01-11 05:07] LABS: BUN/Creatinine Ratio 12; Blood Urea Nitrogen 13 mg/dL (9-20); Calcium 8.4 mg/dL (8.4-10.2); Hemolysis Index 0
--- NOTE | 2020-01-11 06:47 | Hem/Onc Progress Note ---
Assessment and Plan I had seen the patient in the clinic. His hemoglobin was found to be low and he was sent to the hospital. 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 He is awaiting prescription of Gleevec he is awaiting for a financial assistance for same. For anemia transfusion support planned His bleeding likely is from upper GI source. He will need GI evaluation. liver lesions likely next history of microcytic anemia like WALDO In the past CEA and CA 19 normal. 01/11 s/p PRBC seen by GI team will call Surgical team for suggestions - d/w dr bear BECKER iron trial - Patient Problems (1) GIST, malignant Current Visit: Yes Status: Acute Subjective Date of service: 01/11/20 Principal diagnosis: GIST - anemia Interval history: s/p PRBC Objective - Exam Narrative Exam: Vitals were reviewed. 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 - Constitutional Vitals: Last Vital Signs Temp 98.2 F 01/11/20 02:09 Pulse 61 01/11/20 02:09 Resp 18 01/11/20 02:09 BP 152/86 01/11/20 02:09 Pulse Ox 99 01/11/20 02:09 - Labs Lab Results: Laboratory Results - last 24 hr 01/10/20 01/10/20 01/11/20 05:27 06:00 04:10 WBC 5.1 RBC 2.95 L Hgb 7.7 L Hct 23.7 L D MCV 80 L MCH 26 L MCHC 33 RDW 22.8 H Plt Count 305 Add Manual Diff Complete Total Counted 100 Seg Neuts % (Manual) 69.0 Band Neutrophils % 1.0 Lymphocytes % (Manual) 19.0 Reactive Lymphs % (Man) 0 Monocytes % (Manual) 10.0 H Eosinophils % (Manual) 1.0 Basophils % (Manual) 0 Metamyelocytes % 0 Myelocytes % 0 Promyelocytes % 0 Blast Cells % 0 Nucleated RBC % Not Reportable Seg Neutrophils # Man 3.2 Band Neutrophils # 0.0 Lymphocytes # (Manual) 0.9 L Abs React Lymphs (Man) 0.0 Monocytes # (Manual) 0.5 Eosinophils # (Manual) 0.0 Basophils # (Manual) 0.0 Metamyelocytes # 0.0 Myelocytes # 0.0 Promyelocytes # 0.0 Blast Cells # 0.0 WBC Morphology Not Reportable Hypersegmented Neuts Not Reportable Hyposegmented Neuts Not Reportable Hypogranular Neuts Not Reportable Smudge Cells Not Reportable Toxic Granulation Not Reportable Toxic Vacuolation Not Reportable Dohle Bodies Not Reportable Pelger-Huet Anomaly Not Reportable Little Rods Not Reportable Platelet Estimate Consistent w auto Clumped Platelets Not Reportable Plt Clumps, EDTA Not Reportable Large Platelets Not Reportable Giant Platelets Rare Platelet Satelliting Not Reportable Plt Morphology Comment Not Reportable RBC Morphology Not Reportable Dimorphic RBCs Yes Polychromasia Not Reportable Hypochromasia 1+ Poikilocytosis Not Reportable Anisocytosis 3+ Microcytosis Few Macrocytosis Not Reportable Spherocytes Not Reportable Pappenheimer Bodies Not Reportable Sickle Cells Not Reportable Target Cells Not Reportable Tear Drop Cells Not Reportable Ovalocytes Not Reportable Helmet Cells Not Reportable [place] Bodies Not Reportable [place] Rings Not Reportable Danni Cells Not Reportable Bite Cells Not Reportable Crenated Cell Not Reportable Elliptocytes Few Acanthocytes (Spur) Not Reportable Rouleaux Not Reportable Hemoglobin C Crystals Not Reportable Schistocytes Not Reportable Malaria parasites Not Reportable Valeriy Bodies Not Reportable Hem Pathologist Commnt No Sodium Potassium Chloride Carbon Dioxide Anion Gap BUN Creatinine Estimated GFR BUN/Creatinine Ratio Glucose Calcium Crossmatch See Detail 01/11/20 04:10 WBC RBC Hgb Hct MCV MCH MCHC RDW Plt Count Add Manual Diff Total Counted Seg Neuts % (Manual) Band Neutrophils % Lymphocytes % (Manual) Reactive Lymphs % (Man) Monocytes % (Manual) Eosinophils % (Manual) Basophils % (Manual) Metamyelocytes % Myelocytes % Promyelocytes % Blast Cells % Nucleated RBC % Seg Neutrophils # Man Band Neutrophils # Lymphocytes # (Manual) Abs React Lymphs (Man) Monocytes # (Manual) Eosinophils # (Manual) Basophils # (Manual) Metamyelocytes # Myelocytes # Promyelocytes # Blast Cells # WBC Morphology Hypersegmented Neuts Hyposegmented Neuts Hypogranular Neuts Smudge Cells Toxic Granulation Toxic Vacuolation Dohle Bodies Pelger-Huet Anomaly Little Rods Platelet Estimate Clumped Platelets Plt Clumps, EDTA Large Platelets Giant Platelets Platelet Satelliting Plt Morphology Comment RBC Morphology Dimorphic RBCs Polychromasia Hypochromasia Poikilocytosis Anisocytosis Microcytosis Macrocytosis Spherocytes Pappenheimer Bodies Sickle Cells Target Cells Tear Drop Cells Ovalocytes Helmet Cells [place] Bodies [place] Rings Danni Cells Bite Cells Crenated Cell Elliptocytes Acanthocytes (Spur) Rouleaux Hemoglobin C Crystals Schistocytes Malaria parasites Valeriy Bodies Hem Pathologist Commnt Sodium 142 Potassium 4.2 Chloride 105.2 Carbon Dioxide 24 Anion Gap 17 BUN 13 Creatinine 1.1 Estimated GFR > 60 BUN/Creatinine Ratio 12 Glucose 91 Calcium 8.4 Crossmatch Medications & Allergies - Medications Allergies/Adverse Reactions: Allergies No Known Allergies Allergy (Unverified 04/17/17 06:44) Home Medications: Home Medications Medication Instructions Recorded Confirmed Last Taken Type Pantoprazole [Protonix] 40 mg PO BID #60 tablet 11/26/19 01/10/20 01/09/20 Rx lisinopriL [Zestril TAB] 40 mg PO QDAY #30 tablet 12/08/19 01/10/20 01/08/20 21:00 Rx Active Medications: Generic Name Dose Route Start Last Admin Trade Name Freq PRN Reason Stop Dose Admin Albuterol 2.5 mg 01/09/20 20:41 Proventil IH Q3HRT PRN Shortness Of Breath Morphine Sulfate 2 mg 01/09/20 20:43 01/10/20 21:56 Morphine IV 2 mg Q4H PRN Administration Pain, Moderate (4-6) Ondansetron HCl 4 mg 01/09/20 20:41 Zofran IV Q8H PRN Nausea And Vomiting Pantoprazole Sodium 40 mg 01/09/20 22:00 01/10/20 21:50 Protonix IV 40 mg BID LIZ Administration Sodium Chloride 10 ml 01/09/20 22:00 01/10/20 21:51 Sodium Chloride Flush Syringe 10 Ml IV 10 ml BID LIZ Administration Sodium Chloride 10 ml 01/09/20 20:41 Sodium Chloride Flush Syringe 10 Ml IV PRN PRN LINE FLUSH
--- NOTE | 2020-01-11 08:52 | Consultation ---
History of Present Illness Consult date: 01/11/20 Reason for consult: other (GI bleed) Requesting physician: JULEE ACOSTA Chief complaint: blood in bowel movement - History of present illness History of present illness: 64yo M with stage IV GIST tumor was admitted for recurrent upper GI bleeding. Patient was admitted on Thursday from the oncologist office after he was found to have severe anemia. Patient is known to us as we previously consult on him in October 2019. We are asked to see him for surgical options to deal with the upper GI bleeding. Patient reports that he has no abdominal pain. Has some discomfort in the xiphoid region. Is able to tolerate a diet. Had a bowel movement this morning that was dark brown in color. He reports that he was unable to get the Gleevec due to lack of finances. Past History Past Medical History: other (see HPI) Past Surgical History: total hip replacement (left) Social history: denies: smoking, alcohol abuse Family history: no significant family history Medications and Allergies Allergies Allergy/AdvReac Type Severity Reaction Status Date / Time No Known Allergies Allergy Unverified 04/17/17 06:44 Home Medications Medication Instructions Recorded Confirmed Last Taken Type Pantoprazole [Protonix] 40 mg PO BID #60 tablet 11/26/19 01/10/20 01/09/20 Rx lisinopriL [Zestril TAB] 40 mg PO QDAY #30 tablet 12/08/19 01/10/20 01/08/20 21:00 Rx Active Meds: Active Medications Albuterol (Proventil) 2.5 mg IH Q3HRT PRN PRN Reason: Shortness Of Breath Ferric Sodium Gluconate Complex 125 mg/ Sodium Chloride 110 mls @ 100 mls/hr IV ONCE ONE Stop: 01/11/20 10:05 Morphine Sulfate (Morphine) 2 mg IV Q4H PRN PRN Reason: Pain, Moderate (4-6) Last Admin: 01/10/20 21:56 Dose: 2 mg Documented by: Ondansetron HCl (Zofran) 4 mg IV Q8H PRN PRN Reason: Nausea And Vomiting Pantoprazole Sodium (Protonix) 40 mg IV BID [facility] Last Admin: 01/10/20 21:50 Dose: 40 mg Documented by: Sodium Chloride (Sodium Chloride Flush Syringe 10 Ml) 10 ml IV BID [facility] Last Admin: 01/10/20 21:51 Dose: 10 ml Documented by: Sodium Chloride (Sodium Chloride Flush Syringe 10 Ml) 10 ml IV PRN PRN PRN Reason: LINE FLUSH Review of Systems - Constitutional weight loss, fatigue, weakness, no fever, no chills, no chronic pain - Cardiovascular dyspnea on exertion, no chest pain - Respiratory no cough - Gastrointestinal melena, no abdominal pain, no nausea, no vomiting, no BRBPR, no dyspepsia/bloating - Genitourinary no dysuria - Muskuloskeletal no low back pain - Integumentary no wounds Exam Vital Signs Resp 18 01/09/20 13:57 - General physical appearance Positive: no distress, no pain, other (Does not appear ill. ) - Eyes Positive: normal occular movement - Respiratory Positive: normal expansion, normal respiratory effort, clear to auscultation - Cardiovascular Rhythm: regular - Abdomen Abdomen: Present: soft, bowel sounds normal. Absent: tender, guarding, rigid, wound, surgical scars - Integumentary no rash, no growths, no abnormal pigmentation - Neurologic Neurologic: alert and oriented to time, place and person, motor strength and sensation are grossly intact - Psychiatric Psychiatric: appropriate mood/affect, intact judgment & insight, cooperative Results - Labs 01/11/20 04:10 01/11/20 04:10 Abnormal lab results 01/10/20 01/11/20 Range/Units 06:00 04:10 RBC 2.95 L (3.65-5.03) M/mm3 Hgb 7.7 L (11.8-15.2) gm/dl Hct 23.7 L D (35.5-45.6) % MCV 80 L (84-94) fl MCH 26 L (28-32) pg RDW 22.8 H (13.2-15.2) % Crossmatch See Detail Diabetes panel 01/11/20 Range/Units 04:10 Sodium 142 (137-145) mmol/L Potassium 4.2 (3.6-5.0) mmol/L Chloride 105.2 (98-107) mmol/L Carbon Dioxide 24 (22-30) mmol/L BUN 13 (9-20) mg/dL Creatinine 1.1 (0.8-1.5) mg/dL Glucose 91 (75-100) mg/dL Calcium 8.4 (8.4-10.2) mg/dL Calcium panel 01/11/20 Range/Units 04:10 Calcium 8.4 (8.4-10.2) mg/dL Pituitary panel 01/11/20 Range/Units 04:10 Sodium 142 (137-145) mmol/L Potassium 4.2 (3.6-5.0) mmol/L Chloride 105.2 (98-107) mmol/L Carbon Dioxide 24 (22-30) mmol/L BUN 13 (9-20) mg/dL Creatinine 1.1 (0.8-1.5) mg/dL Glucose 91 (75-100) mg/dL Calcium 8.4 (8.4-10.2) mg/dL Adrenal panel 01/11/20 Range/Units 04:10 Sodium 142 (137-145) mmol/L Potassium 4.2 (3.6-5.0) mmol/L Chloride 105.2 (98-107) mmol/L Carbon Dioxide 24 (22-30) mmol/L BUN 13 (9-20) mg/dL Creatinine 1.1 (0.8-1.5) mg/dL Glucose 91 (75-100) mg/dL Calcium 8.4 (8.4-10.2) mg/dL - Imaging CT scan - abdomen: report reviewed, image reviewed CT scan - pelvis: report reviewed, image reviewed Assessment and Plan - Patient Problems (1) GIST, malignant Current Visit: Yes Status: Acute Qualifiers: Malignant gastrointestinal stromal tumor location: stomach Qualified Code(s): C49.A2 - Gastrointestinal stromal tumor of stomach Plan to address problem: Patient is stable. Patient is anemic secondary to his stage IV malignancy. He had a normal response to 2 units of packed red blood cells. Hemodynamically he is stable. Patient would best be served by transfer to a facility that has surgical oncology services. There is no indication at this time for emergency surgical intervention. Please call with questions. time=30min
[2020-01-11] MEDS ORDERED: SODIUM FERRIC GLUCON/SUCRO 125 MG in SODIUM CHLORIDE 0.9% 100 ML IV ONE (09:00)
[2020-01-11] MEDS: PANTOPRAZOLE 40 MG INJ IV SCH ×2 (09:18→22:13)
--- NOTE | 2020-01-11 10:22 | Gastroenterology Progress Note ---
Assessment and Plan 1. Acute on chronic anemia 2. Stage IV GIST -suspected recent bleeding due to known large stage IV GIST in stomach. H/H responded appropriately to blood transfusions. further management per oncology. will need surgical oncology evaluation at tertiary care center as well. will sign off, please call as needed. Subjective Date of service: 01/11/20 Principal diagnosis: GIST - anemia Interval history: pt seen and examined; tolerating po. reports having dark bm's. mild epigastric abd pain Objective - Constitutional Vitals: Temp Pulse Resp BP Pulse Ox 97.8 F 67 20 157/72 99 01/11/20 07:50 01/11/20 07:50 01/11/20 07:50 01/11/20 07:50 01/11/20 07:50 General appearance: no acute distress - Respiratory Respiratory effort: normal Respiratory: bilateral: CTA - Cardiovascular Rhythm: regular Heart Sounds: Present: S1 & S2 - Gastrointestinal General gastrointestinal: Present: soft, non-tender, non-distended - Labs CBC & Chem 7: 01/11/20 04:10 01/11/20 04:10 Labs: Laboratory Results - last 24 hr 01/10/20 01/11/20 01/11/20 06:00 04:10 04:10 WBC 5.1 RBC 2.95 L Hgb 7.7 L Hct 23.7 L D MCV 80 L MCH 26 L MCHC 33 RDW 22.8 H Plt Count 305 Sodium 142 Potassium 4.2 Chloride 105.2 Carbon Dioxide 24 Anion Gap 17 BUN 13 Creatinine 1.1 Estimated GFR > 60 BUN/Creatinine Ratio 12 Glucose 91 Calcium 8.4 Crossmatch See Detail
--- NOTE | 2020-01-11 11:48 | Progress Note ---
Assessment and Plan Assessment and plan: Patient is a 64-year-old -Mal[place]ian man with a history of recently diagnosed with gastric cancer (10/2019) with history of CHF with EF 35%, hypertension, arthritis, sepsis with ESBL who presents to [facility] with complaints of melena and anemia. Acute on Chronic Anemia -Hx of stage IV gastric CA -Heme + stool -C/o melena -Hemoglobin on admission 6.1 -Hx of transfusions (10/2019) -1U PRBC ordered -Continue to monitor hemoglobin -Transfuse as needed -NPO -IV Protonix BID -GI consulted HTN -Monitor BP -Hold antihypertensive for now Gastric cancer -Stage IV -Diagnosed 10/2019 -Rec prescription for Gleevec, but did not fill it to date -Following Dr. 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 Bey and he recommends patient be transferred to tertiary care for Surgical Oncologist, he believes there is one in [facility], so I called [facility] transfer center and spoke with Dulce. She says there is no beds with desired Surgical Oncologist. Patient will on on wait list. d/w Dr. Bey if blood counts is stable tomorrow then d/c with outpatient follow up. History Interval history: Patient was seen and examined. Follow-up on current diagnosis of Anemia. Overnight uneventful as no events directly reported to me. Patient denies any chest pain, shortness breath, nausea/vomiting or severe headaches. Imaging, nursing note, chart, labs and old chart reviewed. Discussed with patient. Ex at bedside, Hippa consent done. Hospitalist Physical - Physical exam Narrative exam: Gen: cachetic, chronically illappearing, NAD, Awake, Alert, Orientated HEENT: NCAT, severely sunken/cachetic jewish muscle wasting PERRL, OP Clear Neck: supple, no adenopathy, no thyromegaly, no JVD CVS/Heart: RRR, normal S1S2, pulses present bilaterally Chest/Lungs: CTA B, Symmetrical chest expansion, good air entry bilaterally GI/Abdomen: soft, NTND, good bowel sounds, no guarding or rebound /Bladder: no suprapubic tenderness, no CVA or paraspinal tenderness Extermity/Skin: severe thenar and hypotenar muscle wasting, atropic limbs, poor mm MSK: FROM x 4 Neuro: CN 2-12 grossly intact, no new focal deficits Psych: calm - Constitutional Vitals: Temp Pulse Resp BP Pulse Ox 97.8 F 67 20 157/72 99 01/11/20 07:50 01/11/20 07:50 01/11/20 07:50 01/11/20 07:50 01/11/20 07:50 Results - Labs CBC & Chem 7: 01/11/20 04:10 01/11/20 04:10 Labs: Laboratory Last Values WBC 5.1 K/mm3 (4.5-11.0) 01/11/20 04:10 RBC 2.95 M/mm3 (3.65-5.03) L 01/11/20 04:10 Hgb 7.7 gm/dl (11.8-15.2) L 01/11/20 04:10 Hct 23.7 % (35.5-45.6) L D 01/11/20 04:10 MCV 80 fl (84-94) L 01/11/20 04:10 MCH 26 pg (28-32) L 01/11/20 04:10 MCHC 33 % (32-34) 01/11/20 04:10 RDW 22.8 % (13.2-15.2) H 01/11/20 04:10 Plt Count 305 K/mm3 (140-440) 01/11/20 04:10 Add Manual Diff Complete 01/10/20 05:27 Total Counted 100 01/10/20 05:27 Seg Neuts % (Manual) 69.0 % (40.0-70.0) 01/10/20 05:27 Band Neutrophils % 1.0 % 01/10/20 05:27 Lymphocytes % (Manual) 19.0 % (13.4-35.0) 01/10/20 05:27 Reactive Lymphs % (Man) 0 % 01/10/20 05:27 Monocytes % (Manual) 10.0 % (0.0-7.3) H 01/10/20 05:27 Eosinophils % (Manual) 1.0 % (0.0-4.3) 01/10/20 05:27 Basophils % (Manual) 0 % (0.0-1.8) 01/10/20 05:27 Metamyelocytes % 0 % 01/10/20 05:27 Myelocytes % 0 % 01/10/20 05:27 Promyelocytes % 0 % 01/10/20 05:27 Blast Cells % 0 % 01/10/20 05:27 Nucleated RBC % Not Reportable 01/10/20 05:27 Seg Neutrophils # Man 3.2 K/mm3 (1.8-7.7) 01/10/20 05:27 Band Neutrophils # 0.0 K/mm3 01/10/20 05:27 Lymphocytes # (Manual) 0.9 K/mm3 (1.2-5.4) L 01/10/20 05:27 Abs React Lymphs (Man) 0.0 K/mm3 01/10/20 05:27 Monocytes # (Manual) 0.5 K/mm3 (0.0-0.8) 01/10/20 05:27 Eosinophils # (Manual) 0.0 K/mm3 (0.0-0.4) 01/10/20 05:27 Basophils # (Manual) 0.0 K/mm3 (0.0-0.1) 01/10/20 05:27 Metamyelocytes # 0.0 K/mm3 01/10/20 05:27 Myelocytes # 0.0 K/mm3 01/10/20 05:27 Promyelocytes # 0.0 K/mm3 01/10/20 05:27 Blast Cells # 0.0 K/mm3 01/10/20 05:27 WBC Morphology Not Reportable 01/10/20 05:27 Hypersegmented Neuts Not Reportable 01/10/20 05:27 Hyposegmented Neuts Not Reportable 01/10/20 05:27 Hypogranular Neuts Not Reportable 01/10/20 05:27 Smudge Cells Not Reportable 01/10/20 05:27 Toxic Granulation Not Reportable 01/10/20 05:27 Toxic Vacuolation Not Reportable 01/10/20 05:27 Dohle Bodies Not Reportable 01/10/20 05:27 Pelger-Huet Anomaly Not Reportable 01/10/20 05:27 Little Rods Not Reportable 01/10/20 05:27 Platelet Estimate Consistent w auto 01/10/20 05:27 Clumped Platelets Not Reportable 01/10/20 05:27 Plt Clumps, EDTA Not Reportable 01/10/20 05:27 Large Platelets Not Reportable 01/10/20 05:27 Giant Platelets Rare 01/10/20 05:27 Platelet Satelliting Not Reportable 01/10/20 05:27 Plt Morphology Comment Not Reportable 01/10/20 05:27 RBC Morphology Not Reportable 01/10/20 05:27 Dimorphic RBCs Yes 01/10/20 05:27 Polychromasia Not Reportable 01/10/20 05:27 Hypochromasia 1+ 01/10/20 05:27 Poikilocytosis Not Reportable 01/10/20 05:27 Anisocytosis 3+ 01/10/20 05:27 Microcytosis Few 01/10/20 05:27 Macrocytosis Not Reportable 01/10/20 05:27 Spherocytes Not Reportable 01/10/20 05:27 Pappenheimer Bodies Not Reportable 01/10/20 05:27 Sickle Cells Not Reportable 01/10/20 05:27 Target Cells Not Reportable 01/10/20 05:27 Tear Drop Cells Not Reportable 01/10/20 05:27 Ovalocytes Not Reportable 01/10/20 05:27 Helmet Cells Not Reportable 01/10/20 05:27 [place]ár[place] Bodies Not Reportable 01/10/20 05:27 [place] Rings Not Reportable 01/10/20 05:27 [place] Cells Not Reportable 01/10/20 05:27 Bite Cells Not Reportable 01/10/20 05:27 Crenated Cell Not Reportable 01/10/20 05:27 Elliptocytes Few 01/10/20 05:27 Acanthocytes (Spur) Not Reportable 01/10/20 05:27 Rouleaux Not Reportable 01/10/20 05:27 Hemoglobin C Crystals Not Reportable 01/10/20 05:27 Schistocytes Not Reportable 01/10/20 05:27 Malaria parasites Not Reportable 01/10/20 05:27 Valeriy Bodies Not Reportable 01/10/20 05:27 Hem Pathologist Commnt No 01/10/20 05:27 Sodium 142 mmol/L (137-145) 01/11/20 04:10 Potassium 4.2 mmol/L (3.6-5.0) 01/11/20 04:10 Chloride 105.2 mmol/L (98-107) 01/11/20 04:10 Carbon Dioxide 24 mmol/L (22-30) 01/11/20 04:10 Anion Gap 17 mmol/L 01/11/20 04:10 BUN 13 mg/dL (9-20) 01/11/20 04:10 Creatinine 1.1 mg/dL (0.8-1.5) 01/11/20 04:10 Estimated GFR > 60 ml/min 01/11/20 04:10 BUN/Creatinine Ratio 12 % 01/11/20 04:10 Glucose 91 mg/dL (75-100) 01/11/20 04:10 Calcium 8.4 mg/dL (8.4-10.2) 01/11/20 04:10 Total Bilirubin 0.20 mg/dL (0.1-1.2) 01/09/20 15:12 Direct Bilirubin < 0.2 mg/dL (0-0.2) 01/09/20 15:12 Indirect Bilirubin 0.0 mg/dL 01/09/20 15:12 AST 19 units/L (5-40) 01/09/20 15:12 ALT 12 units/L (7-56) 01/09/20 15:12 Alkaline Phosphatase 76 units/L (35-129) 01/09/20 15:12 Total Protein 7.0 g/dL (6.3-8.2) 01/09/20 15:12 Albumin 3.2 g/dL (3.9-5) L 01/09/20 15:12 Albumin/Globulin Ratio 0.8 % 01/09/20 15:12 Lipase 25 units/L (13-60) 01/09/20 15:12 Blood Type A POSITIVE 01/09/20 15:15 Antibody Screen Negative 01/09/20 15:15 Crossmatch See Detail 01/10/20 06:00 Active Medications - Current Medications Current Medications: Generic Name Dose Route Start Last Admin Trade Name Freq PRN Reason Stop Dose Admin Albuterol 2.5 mg 01/09/20 20:41 Proventil IH Q3HRT PRN Shortness Of Breath Morphine Sulfate 2 mg 01/09/20 20:43 01/10/20 21:56 Morphine IV 2 mg Q4H PRN Administration Pain, Moderate (4-6) Ondansetron HCl 4 mg 01/09/20 20:41 Zofran IV Q8H PRN Nausea And Vomiting Pantoprazole Sodium 40 mg 01/09/20 22:00 01/11/20 09:18 Protonix IV 40 mg BID LIZ Administration Sodium Chloride 10 ml 01/09/20 22:00 01/11/20 09:19 Sodium Chloride Flush Syringe 10 Ml IV 10 ml BID LIZ Administration Sodium Chloride 10 ml 01/09/20 20:41 Sodium Chloride Flush Syringe 10 Ml IV PRN PRN LINE FLUSH
[2020-01-11] MEDS: MORPHINE 2 MG/1 ML INJ IV PRN ×2 (13:46→22:22)
[2020-01-12 04:21] LABS: Hematocrit 23.7 % (35.5-45.6); Hemoglobin 7.6 gm/dl (11.8-15.2); Mean Corpuscular HGB Conc 32 % (32-34); Mean Corpuscular Volume 80 fl (84-94); Platelet Count 285 K/mm3 (140-440); Red Blood Count 2.98 M/mm3 (3.65-5.03)
[2020-01-12 04:43] LABS: BUN/Creatinine Ratio 11; Blood Urea Nitrogen 11 mg/dL (9-20); Calcium 8.5 mg/dL (8.4-10.2); Hemolysis Index 3
[2020-01-12 04:46] LABS: Red Cell Distribution Width 23.8 % (13.2-15.2)
--- NOTE | 2020-01-12 07:34 | Hem/Onc Progress Note ---
Assessment and Plan I had seen the patient in the clinic. His hemoglobin was found to be low and he was sent to the hospital. He h/o fatigue weakness likely secondary to anemia Recently diagnosed with stage IV GIST. He is awaiting prescription of Gleevec he is awaiting for a financial assistance for same. For anemia transfusion support His bleeding likely is from upper GI source. liver lesions likely mets history of microcytic anemia like WALDO In the past CEA and CA 19 normal. 01/12 s/p PRBC seen by GI team seen by Surgical team - d/w dr sifuentes s/p IV iron trial - Patient Problems (1) GIST, malignant Current Visit: Yes Status: Acute Qualifiers: Malignant gastrointestinal stromal tumor location: stomach Qualified Code(s): C49.A2 - Gastrointestinal stromal tumor of stomach Subjective Date of service: 01/12/20 Principal diagnosis: GIST stage IV - anemia Interval history: seen by sx h/o dark stools Objective - Exam Narrative Exam: Vitals were reviewed. 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 - Constitutional Vitals: Last Vital Signs Temp 98.5 F 01/12/20 02:44 Pulse 47 L 01/12/20 02:44 Resp 18 01/12/20 02:44 BP 155/66 01/12/20 02:44 Pulse Ox 98 01/12/20 02:44 - Labs Lab Results: Laboratory Results - last 24 hr 01/12/20 01/12/20 03:56 03:56 WBC 4.7 RBC 2.98 L Hgb 7.6 L Hct 23.7 L MCV 80 L MCH 26 L MCHC 32 RDW 23.8 H Plt Count 285 Sodium 140 Potassium 4.1 Chloride 104.6 Carbon Dioxide 23 Anion Gap 17 BUN 11 Creatinine 1.0 Estimated GFR > 60 BUN/Creatinine Ratio 11 Glucose 115 H Calcium 8.5 Medications & Allergies - Medications Allergies/Adverse Reactions: Allergies No Known Allergies Allergy (Unverified 04/17/17 06:44) Home Medications: Home Medications Medication Instructions Recorded Confirmed Last Taken Type Pantoprazole [Protonix] 40 mg PO BID #60 tablet 11/26/19 01/10/20 01/09/20 Rx lisinopriL [Zestril TAB] 40 mg PO QDAY #30 tablet 12/08/19 01/10/20 01/08/20 21:00 Rx Active Medications: Generic Name Dose Route Start Last Admin Trade Name Valeriy PRN Reason Stop Dose Admin Albuterol 2.5 mg 01/09/20 20:41 Proventil IH Q3HRT PRN Shortness Of Breath Morphine Sulfate 2 mg 01/09/20 20:43 01/11/20 22:22 Morphine IV 2 mg Q4H PRN Administration Pain, Moderate (4-6) Ondansetron HCl 4 mg 01/09/20 20:41 Zofran IV Q8H PRN Nausea And Vomiting Pantoprazole Sodium 40 mg 01/09/20 22:00 01/11/20 22:13 Protonix IV 40 mg BID LIZ Administration Sodium Chloride 10 ml 01/09/20 22:00 01/11/20 22:13 Sodium Chloride Flush Syringe 10 Ml IV 10 ml BID LIZ Administration Sodium Chloride 10 ml 01/09/20 20:41 Sodium Chloride Flush Syringe 10 Ml IV PRN PRN LINE FLUSH
[2020-01-12] MEDS: PANTOPRAZOLE 40 MG TAB PO SCH ×2 (10:30→23:04)
[2020-01-12] MEDS: MORPHINE 2 MG/1 ML INJ IV PRN (23:04)
--- NOTE | 2020-01-13 06:48 | Progress Note ---
Assessment and Plan Acute on Chronic Anemia -Hx of stage IV gastric CA -Heme + stool -C/o melena -Hemoglobin on admission 6.1 -Hx of transfusions (10/2019) -1U PRBC ordered -Continue to monitor hemoglobin -Transfuse as needed -NPO -IV Protonix BID -GI consulted HTN -Monitor BP -Hold antihypertensive for now Gastric cancer -Stage IV -Diagnosed 10/2019 -Rec prescription for Gleevec, but did not fill it to date -Following Dr. Javier and [facility] as outpatient CHF -EF 35% -Resume HF meds when pt is no longer NPO and medication reconciliation has been updated DVT PPX -On SCD's Severe Malnutrition -consult [employer]p Yarn Sorter Disposition: continue inpatient care, d/w Dr. Bey and he recommends patient be transferred to tertiary care for Surgical Oncologist, he believes there is one in [facility], so I called [facility] transfer center and spoke with Dulce. She says there is no beds with desired Surgical Oncologist. Patient will on on wait list. d/w Dr. Bey if blood counts is stable tomorrow then d/c with outpatient follow up. Transfer center to be called tomorrow in AM Subjective Date of service: 01/12/20 Principal diagnosis: GIST stage IV - anemia Interval history: Patient is a 64-year-old -[place] man with a history of recently diagnosed with gastric cancer (10/2019) with history of CHF with EF 35%, hypertension, arthritis, sepsis with ESBL who presents to [facility] ED with complaints of melena and anemia. Objective - Constitutional Vitals: Vital Signs - 12hr 01/12/20 01/13/20 19:47 03:37 Temperature 98.5 F 98.2 F Pulse Rate 58 L 39 L Respiratory 18 18 Rate Blood Pressure 161/85 159/67 O2 Sat by Pulse 96 98 Oximetry General appearance: Present: no acute distress, well-nourished - EENT Eyes: PERRL, EOM intact ENT: hearing intact, clear oral mucosa Ears: bilateral: normal - Neck Neck: supple, normal ROM - Respiratory Respiratory effort: normal Respiratory: bilateral: CTA - Breasts Breasts: normal - Cardiovascular Heart rate: 78 Rhythm: regular Heart Sounds: Present: S1 & S2. Absent: gallop, rub Extremities: pulses intact, No edema, normal color, Full ROM - Gastrointestinal General gastrointestinal: Present: soft, non-tender, non-distended, normal bowel sounds - Genitourinary Male genitourinary: normal - Integumentary Integumentary: clear, warm, dry - Musculoskeletal Musculoskeletal: 1, strength equal bilaterally - Neurologic Neurologic: moves all extremities - Psychiatric Psychiatric: memory intact, appropriate mood/affect, intact judgment & insight - Labs CBC & Chem 7: 01/12/20 03:56 01/12/20 03:56
--- NOTE | 2020-01-13 06:53 | Hem/Onc Progress Note ---
Assessment and Plan GIST I had seen the patient in the clinic. His hemoglobin was found to be low and he was sent to the hospital. He h/o fatigue weakness likely secondary to anemia Recently diagnosed with stage IV GIST. He is awaiting prescription of Gleevec he is awaiting for a financial assistance for same. For anemia transfusion support His bleeding likely is from upper GI source. liver lesions likely mets history of microcytic anemia like WALDO In the past CEA and CA 19 normal. 01/13 s/p PRBC seen by GI team seen by Surgical team s/p IV iron trial transfer eval to [facility] pending vs OP follow up - Patient Problems (1) GIST, malignant Current Visit: Yes Status: Acute Qualifiers: Malignant gastrointestinal stromal tumor location: stomach Qualified Code(s): C49.A2 - Gastrointestinal stromal tumor of stomach Subjective Date of service: 01/13/20 Principal diagnosis: gist - anemia Interval history: pending transfer eval to [facility] Objective - Exam Narrative Exam: Vitals were reviewed. 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 awake oriented - Constitutional Vitals: Last Vital Signs Temp 98.2 F 01/13/20 03:37 Pulse 39 L 01/13/20 03:37 Resp 18 01/13/20 03:37 BP 159/67 01/13/20 03:37 Pulse Ox 98 01/13/20 03:37 Medications & Allergies - Medications Allergies/Adverse Reactions: Allergies No Known Allergies Allergy (Unverified 04/17/17 06:44) Home Medications: Home Medications Medication Instructions Recorded Confirmed Last Taken Type Pantoprazole [Protonix] 40 mg PO BID #60 tablet 11/26/19 01/10/20 01/09/20 Rx lisinopriL [Zestril TAB] 40 mg PO QDAY #30 tablet 12/08/19 01/10/20 01/08/20 21:00 Rx Active Medications: Generic Name Dose Route Start Last Admin Trade Name Freq PRN Reason Stop Dose Admin Albuterol 2.5 mg 01/09/20 20:41 Proventil IH Q3HRT PRN Shortness Of Breath Morphine Sulfate 2 mg 01/09/20 20:43 01/12/20 23:04 Morphine IV 2 mg Q4H PRN Administration Pain, Moderate (4-6) Ondansetron HCl 4 mg 01/09/20 20:41 Zofran IV Q8H PRN Nausea And Vomiting Pantoprazole Sodium 40 mg 01/12/20 10:00 01/12/20 23:04 Protonix PO 40 mg BID LIZ Administration Sodium Chloride 10 ml 01/09/20 22:00 01/12/20 23:07 Sodium Chloride Flush Syringe 10 Ml IV 10 ml BID LIZ Administration Sodium Chloride 10 ml 01/09/20 20:41 Sodium Chloride Flush Syringe 10 Ml IV PRN PRN LINE FLUSH
--- NOTE | 2020-01-13 08:05 | Progress Note ---
Assessment and Plan Assessment and plan: Patient is a 64-year-old -[place] man with a history of recently diagnosed with gastric cancer (10/2019) with history of CHF with EF 35%, hypertension, arthritis, sepsis with ESBL who presents to [facility] ED with complaints of melena and anemia. Acute on Chronic Anemia -Hx of stage IV gastric CA -Heme + stool -C/o melena -Hemoglobin on admission 6.1 -Hx of transfusions (10/2019) -1U PRBC ordered -Continue to monitor hemoglobin -Transfuse as needed -NPO -IV Protonix BID -GI consulted HTN -Monitor BP -Hold antihypertensive for now Gastric cancer -Stage IV -Diagnosed 10/2019 -Rec prescription for Gleevec, but did not fill it to date -Following Dr. Javier and [facility] as outpatient CHF -EF 35% -Resume HF meds when pt is no longer NPO and medication reconciliation has been updated DVT PPX -On SCD's Severe Malnutrition -consult Rhia Bradycardia -get stat EKG -order for remote tele -Consulted Cardiology Disposition: continue inpatient care, d/w Dr. Bey and he recommends patient be transferred to tertiary care for Surgical Oncologist, he believes there is one in [facility], so I called [facility] [place] and spoke with Dulce on Thursday. She says there is no beds with desired Surgical Oncologist. Patient will on on wait list. d/w Dr. Bey if blood counts is stable tomorrow then d/c with outpatient follow up. 01/13/20: I called [facility], spoke with Bebeto. No beds, therefore, no Hospitalist will respond per Bebeto. They will call me back when bed is av ailable==>Bebeto called me back at [phone] to tell me that beds maybe available later pending discharges, I asked to speak with but she says that will not happen unless beds are currently available. ECHO pending. History Interval history: Patient was seen and examined. Follow-up on current diagnosis of Anemia. Overnight uneventful as no events directly reported to me. Patient denies any chest pain, shortness breath, nausea/vomiting or severe headaches. Imaging, nursing note, chart, labs and old chart reviewed. Discussed with patient. Reviewed VS and HR documented at 3am was 39, so I called the nurse and spoke with the overnight nurse, she did not know of that results. Ordered EKG Hospitalist Physical - Physical exam Narrative exam: Gen: cachetic, chronically illappearing, NAD, Awake, Alert, Orientated HEENT: NCAT, severely sunken/cachetic hoahaoism muscle wasting PERRL, OP Clear Neck: supple, no adenopathy, no thyromegaly, no JVD CVS/Heart: cathy, normal S1S2, pulses present bilaterally Chest/Lungs: CTA B, Symmetrical chest expansion, good air entry bilaterally GI/Abdomen: soft, NTND, good bowel sounds, no guarding or rebound /Bladder: no suprapubic tenderness, no CVA or paraspinal tenderness Extermity/Skin: severe thenar and hypotenar muscle wasting, atropic limbs, poor mm MSK: FROM x 4 Neuro: CN 2-12 grossly intact, no new focal deficits Psych: calm - Constitutional Vitals: Temp Pulse Resp BP Pulse Ox 98.2 F 39 L 18 159/67 98 01/13/20 03:37 01/13/20 03:37 01/13/20 03:37 01/13/20 03:37 01/13/20 03:37 General appearance: Present: no acute distress, well-nourished Results - Labs CBC & Chem 7: 01/12/20 03:56 01/12/20 03:56 Labs: Laboratory Last Values WBC 4.7 K/mm3 (4.5-11.0) 01/12/20 03:56 RBC 2.98 M/mm3 (3.65-5.03) L 01/12/20 03:56 Hgb 7.6 gm/dl (11.8-15.2) L 01/12/20 03:56 Hct 23.7 % (35.5-45.6) L 01/12/20 03:56 MCV 80 fl (84-94) L 01/12/20 03:56 MCH 26 pg (28-32) L 01/12/20 03:56 MCHC 32 % (32-34) 01/12/20 03:56 RDW 23.8 % (13.2-15.2) H 01/12/20 03:56 Plt Count 285 K/mm3 (140-440) 01/12/20 03:56 Add Manual Diff Complete 01/10/20 05:27 Total Counted 100 01/10/20 05:27 Seg Neuts % (Manual) 69.0 % (40.0-70.0) 01/10/20 05:27 Band Neutrophils % 1.0 % 01/10/20 05:27 Lymphocytes % (Manual) 19.0 % (13.4-35.0) 01/10/20 05:27 Reactive Lymphs % (Man) 0 % 01/10/20 05:27 Monocytes % (Manual) 10.0 % (0.0-7.3) H 01/10/20 05:27 Eosinophils % (Manual) 1.0 % (0.0-4.3) 01/10/20 05:27 Basophils % (Manual) 0 % (0.0-1.8) 01/10/20 05:27 Metamyelocytes % 0 % 01/10/20 05:27 Myelocytes % 0 % 01/10/20 05:27 Promyelocytes % 0 % 01/10/20 05:27 Blast Cells % 0 % 01/10/20 05:27 Nucleated RBC % Not Reportable 01/10/20 05:27 Seg Neutrophils # Man 3.2 K/mm3 (1.8-7.7) 01/10/20 05:27 Band Neutrophils # 0.0 K/mm3 01/10/20 05:27 Lymphocytes # (Manual) 0.9 K/mm3 (1.2-5.4) L 01/10/20 05:27 Abs React Lymphs (Man) 0.0 K/mm3 01/10/20 05:27 Monocytes # (Manual) 0.5 K/mm3 (0.0-0.8) 01/10/20 05:27 Eosinophils # (Manual) 0.0 K/mm3 (0.0-0.4) 01/10/20 05:27 Basophils # (Manual) 0.0 K/mm3 (0.0-0.1) 01/10/20 05:27 Metamyelocytes # 0.0 K/mm3 01/10/20 05:27 Myelocytes # 0.0 K/mm3 01/10/20 05:27 Promyelocytes # 0.0 K/mm3 01/10/20 05:27 Blast Cells # 0.0 K/mm3 01/10/20 05:27 WBC Morphology Not Reportable 02/11/20 05:27 Hypersegmented Neuts Not Reportable 01/10/20 05:27 Hyposegmented Neuts Not Reportable 01/10/20 05:27 Hypogranular Neuts Not Reportable 01/10/20 05:27 Smudge Cells Not Reportable 01/10/20 05:27 Toxic Granulation Not Reportable 01/10/20 05:27 Toxic Vacuolation Not Reportable 01/10/20 05:27 Dohle Bodies Not Reportable 01/10/20 05:27 Pelger-Huet Anomaly Not Reportable 01/10/20 05:27 Little Rods Not Reportable 01/10/20 05:27 Platelet Estimate Consistent w auto 01/10/20 05:27 Clumped Platelets Not Reportable 01/10/20 05:27 Plt Clumps, EDTA Not Reportable 01/10/20 05:27 Large Platelets Not Reportable 01/10/20 05:27 Giant Platelets Rare 01/10/20 05:27 Platelet Satelliting Not Reportable 01/10/20 05:27 Plt Morphology Comment Not Reportable 01/10/20 05:27 RBC Morphology Not Reportable 01/10/20 05:27 Dimorphic RBCs Yes 01/10/20 05:27 Polychromasia Not Reportable 01/10/20 05:27 Hypochromasia 1+ 01/10/20 05:27 Poikilocytosis Not Reportable 01/10/20 05:27 Anisocytosis 3+ 01/10/20 05:27 Microcytosis Few 01/10/20 05:27 Macrocytosis Not Reportable 01/10/20 05:27 Spherocytes Not Reportable 01/10/20 05:27 Pappenheimer Bodies Not Reportable 01/10/20 05:27 Sickle Cells Not Reportable 01/10/20 05:27 Target Cells Not Reportable 01/10/20 05:27 Tear Drop Cells Not Reportable 01/10/20 05:27 Ovalocytes Not Reportable 01/10/20 05:27 Helmet Cells Not Reportable 01/10/20 05:27 [place] Bodies Not Reportable 01/10/20 05:27 [place] Rings Not Reportable 01/10/20 05:27 Spring Cells Not Reportable 01/10/20 05:27 Bite Cells Not Reportable 01/10/20 05:27 Crenated Cell Not Reportable 01/10/20 05:27 Elliptocytes Few 01/10/20 05:27 Acanthocytes (Spur) Not Reportable 01/10/20 05:27 Rouleaux Not Reportable 01/10/20 05:27 Hemoglobin C Crystals Not Reportable 01/10/20 05:27 Schistocytes Not Reportable 01/10/20 05:27 Malaria parasites Not Reportable 01/10/20 05:27 Valeriy Bodies Not Reportable 01/10/20 05:27 Hem Pathologist Commnt No 01/10/20 05:27 Sodium 140 mmol/L (137-145) 01/12/20 03:56 Potassium 4.1 mmol/L (3.6-5.0) 01/12/20 03:56 Chloride 104.6 mmol/L (98-107) 01/12/20 03:56 Carbon Dioxide 23 mmol/L (22-30) 01/12/20 03:56 Anion Gap 17 mmol/L 01/12/20 03:56 BUN 11 mg/dL (9-20) 01/12/20 03:56 Creatinine 1.0 mg/dL (0.8-1.5) 01/12/20 03:56 Estimated GFR > 60 ml/min 01/12/20 03:56 BUN/Creatinine Ratio 11 % 01/12/20 03:56 Glucose 115 mg/dL (75-100) H 01/12/20 03:56 Calcium 8.5 mg/dL (8.4-10.2) 01/12/20 03:56 Total Bilirubin 0.20 mg/dL (0.1-1.2) 01/09/20 15:12 Direct Bilirubin < 0.2 mg/dL (0-0.2) 01/09/20 15:12 Indirect Bilirubin 0.0 mg/dL 01/09/20 15:12 AST 19 units/L (5-40) 01/09/20 15:12 ALT 12 units/L (7-56) 01/09/20 15:12 Alkaline Phosphatase 76 units/L (35-129) 01/09/20 15:12 Total Protein 7.0 g/dL (6.3-8.2) 01/09/20 15:12 Albumin 3.2 g/dL (3.9-5) L 01/09/20 15:12 Albumin/Globulin Ratio 0.8 % 01/09/20 15:12 Lipase 25 units/L (13-60) 01/09/20 15:12 Blood Type A POSITIVE 01/09/20 15:15 Antibody Screen Negative 01/09/20 15:15 Crossmatch See Detail 01/10/20 06:00 Active Medications - Current Medications Current Medications: Generic Name Dose Route Start Last Admin Trade Name Freq PRN Reason Stop Dose Admin Albuterol 2.5 mg 01/09/20 20:41 Proventil IH Q3HRT PRN Shortness Of Breath Morphine Sulfate 2 mg 01/09/20 20:43 01/12/20 23:04 Morphine IV 2 mg Q4H PRN Administration Pain, Moderate (4-6) Ondansetron HCl 4 mg 01/09/20 20:41 Zofran IV Q8H PRN Nausea And Vomiting Pantoprazole Sodium 40 mg 01/12/20 10:00 01/12/20 23:04 Protonix PO 40 mg BID LIZ Administration Sodium Chloride 10 ml 01/09/20 22:00 01/12/20 23:07 Sodium Chloride Flush Syringe 10 Ml IV 10 ml BID LIZ Administration Sodium Chloride 10 ml 01/09/20 20:41 Sodium Chloride Flush Syringe 10 Ml IV PRN PRN LINE FLUSH
[2020-01-13] MEDS: PANTOPRAZOLE 40 MG TAB PO SCH ×2 (09:27→21:59)
[2020-01-13] MEDS: MORPHINE 2 MG/1 ML INJ IV PRN ×2 (09:29→21:59)
--- NOTE | 2020-01-13 10:48 | Consultation ---
History of Present Illness Consult date: 01/13/20 Consult reason: bradycardia History of present illness: 64 year old male presenting with GI bleeding, anemia and fatigue. Vital signs are pertinent for slow heart rate; however, there is no ECG in the chart and patient is not being monitored on telemetry. Patient denies previous history of heart rhythm disorder, syncope. Patient also denies prior history of cardiac disease although there is history of non-ischemic cardiomyopathy noted in the chart. Patient does not follow with outpatient operations developer. Patient denies being on blood thinner at home. Patient denies chest pain, shortness of breath, palpitations or syncope. Past History Past Medical History: anemia, hypertension, other (Non-ischemic cardiomyopathy, GIST with liver mets) Past Surgical History: total hip replacement (left) Social history: denies: smoking, alcohol abuse Family history: no significant family history Medications and Allergies Allergies Allergy/AdvReac Type Severity Reaction Status Date / Time No Known Allergies Allergy Unverified 04/17/17 06:44 Home Medications Medication Instructions Recorded Confirmed Last Taken Type Pantoprazole [Protonix] 40 mg PO BID #60 tablet 11/26/19 01/10/20 01/09/20 Rx lisinopriL [Zestril TAB] 40 mg PO QDAY #30 tablet 12/08/19 01/10/20 01/08/20 21:00 Rx Active Meds: Active Medications Albuterol (Proventil) 2.5 mg IH Q3HRT PRN PRN Reason: Shortness Of Breath Morphine Sulfate (Morphine) 2 mg IV Q4H PRN PRN Reason: Pain, Moderate (4-6) Last Admin: 01/13/20 09:29 Dose: 2 mg Documented by: Ondansetron HCl (Zofran) 4 mg IV Q8H PRN PRN Reason: Nausea And Vomiting Pantoprazole Sodium (Protonix) 40 mg PO BID [facility] Last Admin: 01/13/20 09:27 Dose: 40 mg Documented by: Sodium Chloride (Sodium Chloride Flush Syringe 10 Ml) 10 ml IV BID [facility] Last Admin: 01/13/20 09:31 Dose: 10 ml Documented by: Sodium Chloride (Sodium Chloride Flush Syringe 10 Ml) 10 ml IV PRN PRN PRN Reason: LINE FLUSH Review of Systems All systems: negative Physical Examination Vital Signs Resp 18 01/09/20 13:57 General appearance: no acute distress HEENT: Positive: PERRL Neck: Positive: neck supple Cardiac: Positive: Reg Rate and Rhythm Lungs: Positive: Normal Exam Abdomen: Positive: Soft Results 01/12/20 03:56 01/12/20 03:56 Assessment and Plan Bradycardia noted on vital signs measurement No ECG in chart and no tele monitoring Rectal bleeding and acute anemia - reason for admisison History of gastric cancer with liver mets Essential primary hypertension Non-ischemic cardiomyopathy with no follow-up Patient has no insight into his cardiac history Recommendations: 12 lead ECG Tele monitoring Echocardiogram Avoid AVN or SN blocking agents
[2020-01-14] MEDS: MORPHINE 2 MG/1 ML INJ IV PRN (04:34)
[2020-01-14 06:44] LABS: Hematocrit 29.2 % (35.5-45.6); Hemoglobin 9.1 gm/dl (11.8-15.2); Mean Corpuscular HGB Conc 31 % (32-34); Mean Corpuscular Volume 82 fl (84-94); Platelet Count 356 K/mm3 (140-440); Red Blood Count 3.57 M/mm3 (3.65-5.03)
[2020-01-14 06:46] LABS: Red Cell Distribution Width 22.9 % (13.2-15.2)
[2020-01-14] MEDS: PANTOPRAZOLE 40 MG TAB PO SCH (09:33)
--- NOTE | 2020-01-14 13:00 | Progress Note ---
Assessment and Plan Assessment and plan: Patient is a 64-year-old -[place] man with a history of recently diagnosed with gastric cancer (10/2019) with history of CHF with EF 35%, hypertension, arthritis, sepsis with ESBL who presents to [facility] ED with complaints of melena and anemia. Acute on Chronic Anemia -Hx of stage IV gastric CA -Heme + stool -C/o melena -Hemoglobin on admission 6.1 -Hx of transfusions (10/2019) -1U PRBC ordered -Continue to monitor hemoglobin -Transfuse as needed -NPO -treated with IV Protonix BID -GI consulted, input note HTN -Monitor BP -Hold antihypertensive for now Gastric cancer -Stage IV -Diagnosed 10/2019 -Rec prescription for Gleevec, but did not fill it to date -Following Dr. Javier and [facility] as outpatient -General surgery consulted, input noted CHF -EF 35% -Resume HF meds when pt is no longer NPO and medication reconciliation has been updated DVT PPX -On SCD's Severe Malnutrition -consult Head Char Filter Tank Tender Bradycardia -get stat EKG, premature beats, nonspecific hr 71 -order for remote tele -Consulted Cardiology Disposition: continue inpatient care, d/w Dr. Bey and he recommends patient be transferred to tertiary care for Surgical Oncologist, he believes there is one in [facility], so I called [facility] [place] and spoke with Dulce on Thursday. She says there is no beds with desired Surgical Oncologist. Patient will on on wait list. d/w Dr. Bey if blood counts is stable tomorrow then d/c with outpatient follow up. 01/13/20: I called [facility], spoke with Bebeto. No beds, therefore, no Hospitalist will respond per Bebeto. They will call me back when bed is a vailable==>Bebeto called me back at [phone] to tell me that beds maybe available later pending discharges, I asked to speak with but she says that will not happen unless beds are currently available. ECHO pending 01/14/20: ECHO reviewed, pt euvolemic, asymptomatic. HR mainly drops physician aide and at night during sleep. D/W Dr. Bey and no need to transfer. Needs outpatient follow-up with Surgical Oncologist. now SR pulse 83, History Interval history: Patient was seen and examined. Follow-up on current diagnosis of Anemia. Overnight uneventful as no events directly reported to me. Patient denies any chest pain, shortness breath, nausea/vomiting or severe headaches. Imaging, nursing note, chart, labs and old chart reviewed. Discussed with patient. Re viewed VS and HR documented at 3am was 39, so I called the nurse and spoke with the overnight nurse, she did not know of that results. Ordered EKG Hospitalist Physical - Physical exam Narrative exam: Gen: cachetic, chronically illappearing, NAD, Awake, Alert, Orientated HEENT: NCAT, severely sunken/cachetic christianity muscle wasting PERRL, OP Clear Neck: supple, no adenopathy, no thyromegaly, no JVD CVS/Heart: cathy, normal S1S2, pulses present bilaterally Chest/Lungs: CTA B, Symmetrical chest expansion, good air entry bilaterally GI/Abdomen: soft, NTND, good bowel sounds, no guarding or rebound /Bladder: no suprapubic tenderness, no CVA or paraspinal tenderness Extermity/Skin: severe thenar and hypotenar muscle wasting, atropic limbs, poor mm MSK: FROM x 4 Neuro: CN 2-12 grossly intact, no new focal deficits Psych: calm - Constitutional Vitals: Temp Pulse Resp BP Pulse Ox 98.4 F 55 L 18 176/89 100 01/14/20 07:51 01/14/20 07:51 01/14/20 07:51 01/14/20 07:51 01/14/20 07:51 General appearance: Present: no acute distress, well-nourished Results - Labs CBC & Chem 7: 01/14/20 04:50 01/12/20 03:56 Labs: Laboratory Last Values WBC 5.2 K/mm3 (4.5-11.0) 01/14/20 04:50 RBC 3.57 M/mm3 (3.65-5.03) L 01/14/20 04:50 Hgb 9.1 gm/dl (11.8-15.2) L 01/14/20 04:50 Hct 29.2 % (35.5-45.6) L 01/14/20 04:50 MCV 82 fl (84-94) L 01/14/20 04:50 MCH 25 pg (28-32) L 01/14/20 04:50 MCHC 31 % (32-34) L 01/14/20 04:50 RDW 22.9 % (13.2-15.2) H 01/14/20 04:50 Plt Count 356 K/mm3 (140-440) 01/14/20 04:50 Add Manual Diff Complete 01/10/20 05:27 Total Counted 100 01/10/20 05:27 Seg Neuts % (Manual) 69.0 % (40.0-70.0) 01/10/20 05:27 Band Neutrophils % 1.0 % 01/10/20 05:27 Lymphocytes % (Manual) 19.0 % (13.4-35.0) 01/10/20 05:27 Reactive Lymphs % (Man) 0 % 01/10/20 05:27 Monocytes % (Manual) 10.0 % (0.0-7.3) H 01/10/20 05:27 Eosinophils % (Manual) 1.0 % (0.0-4.3) 01/10/20 05:27 Basophils % (Manual) 0 % (0.0-1.8) 01/10/20 05:27 Metamyelocytes % 0 % 01/10/20 05:27 Myelocytes % 0 % 01/10/20 05:27 Promyelocytes % 0 % 01/10/20 05:27 Blast Cells % 0 % 01/10/20 05:27 Nucleated RBC % Not Reportable 01/10/20 05:27 Seg Neutrophils # Man 3.2 K/mm3 (1.8-7.7) 01/10/20 05:27 Band Neutrophils # 0.0 K/mm3 01/10/20 05:27 Lymphocytes # (Manual) 0.9 K/mm3 (1.2-5.4) L 01/10/20 05:27 Abs React Lymphs (Man) 0.0 K/mm3 01/10/20 05:27 Monocytes # (Manual) 0.5 K/mm3 (0.0-0.8) 01/10/20 05:27 Eosinophils # (Manual) 0.0 K/mm3 (0.0-0.4) 01/10/20 05:27 Basophils # (Manual) 0.0 K/mm3 (0.0-0.1) 01/10/20 05:27 Metamyelocytes # 0.0 K/mm3 01/10/20 05:27 Myelocytes # 0.0 K/mm3 01/10/20 05:27 Promyelocytes # 0.0 K/mm3 01/10/20 05:27 Blast Cells # 0.0 K/mm3 01/10/20 05:27 WBC Morphology Not Reportable 01/10/20 05:27 Hypersegmented Neuts Not Reportable 01/10/20 05:27 Hyposegmented Neuts Not Reportable 01/10/20 05:27 Hypogranular Neuts Not Reportable 01/10/20 05:27 Smudge Cells Not Reportable 01/10/20 05:27 Toxic Granulation Not Reportable 01/10/20 05:27 Toxic Vacuolation Not Reportable 01/10/20 05:27 Dohle Bodies Not Reportable 01/10/20 05:27 Pelger-Huet Anomaly Not Reportable 01/10/20 05:27 Little Rods Not Reportable 01/10/20 05:27 Platelet Estimate Consistent w auto 01/10/20 05:27 Clumped Platelets Not Reportable 01/10/20 05:27 Plt Clumps, EDTA Not Reportable 01/10/20 05:27 Large Platelets Not Reportable 01/10/20 05:27 Giant Platelets Rare 01/10/20 05:27 Platelet Satelliting Not Reportable 01/10/20 05:27 Plt Morphology Comment Not Reportable 01/10/20 05:27 RBC Morphology Not Reportable 01/10/20 05:27 Dimorphic RBCs Yes 01/10/20 05:27 Polychromasia Not Reportable 01/10/20 05:27 Hypochromasia 1+ 01/10/20 05:27 Poikilocytosis Not Reportable 01/10/20 05:27 Anisocytosis 3+ 01/10/20 05:27 Microcytosis Few 01/10/20 05:27 Macrocytosis Not Reportable 01/10/20 05:27 Spherocytes Not Reportable 01/10/20 05:27 Pappenheimer Bodies Not Reportable 01/10/20 05:27 Sickle Cells Not Reportable 01/10/20 05:27 Target Cells Not Reportable 01/10/20 05:27 Tear Drop Cells Not Reportable 01/10/20 05:27 Ovalocytes Not Reportable 01/10/20 05:27 Helmet Cells Not Reportable 01/10/20 05:27 Márquez-Lomita Bodies Not Reportable 01/10/20 05:27 [place] Rings Not Reportable 01/10/20 05:27 Danni Cells Not Reportable 01/10/20 05:27 Bite Cells Not Reportable 01/10/20 05:27 Crenated Cell Not Reportable 01/10/20 05:27 Elliptocytes Few 01/10/20 05:27 Acanthocytes (Spur) Not Reportable 01/10/20 05:27 Rouleaux Not Reportable 01/10/20 05:27 Hemoglobin C Crystals Not Reportable 01/10/20 05:27 Schistocytes Not Reportable 01/10/20 05:27 Malaria parasites Not Reportable 01/10/20 05:27 Valeriy Bodies Not Reportable 01/10/20 05:27 Hem Pathologist Commnt No 01/10/20 05:27 Sodium 140 mmol/L (137-145) 01/12/20 03:56 Potassium 4.1 mmol/L (3.6-5.0) 01/12/20 03:56 Chloride 104.6 mmol/L (98-107) 01/12/20 03:56 Carbon Dioxide 23 mmol/L (22-30) 01/12/20 03:56 Anion Gap 17 mmol/L 01/12/20 03:56 BUN 11 mg/dL (9-20) 01/12/20 03:56 Creatinine 1.0 mg/dL (0.8-1.5) 01/12/20 03:56 Estimated GFR > 60 ml/min 01/12/20 03:56 BUN/Creatinine Ratio 11 % 01/12/20 03:56 Glucose 115 mg/dL (75-100) H 01/12/20 03:56 Calcium 8.5 mg/dL (8.4-10.2) 01/12/20 03:56 Total Bilirubin 0.20 mg/dL (0.1-1.2) 01/09/20 15:12 Direct Bilirubin < 0.2 mg/dL (0-0.2) 01/09/20 15:12 Indirect Bilirubin 0.0 mg/dL 01/09/20 15:12 AST 19 units/L (5-40) 01/09/20 15:12 ALT 12 units/L (7-56) 01/09/20 15:12 Alkaline Phosphatase 76 units/L (35-129) 01/09/20 15:12 Total Protein 7.0 g/dL (6.3-8.2) 01/09/20 15:12 Albumin 3.2 g/dL (3.9-5) L 01/09/20 15:12 Albumin/Globulin Ratio 0.8 % 01/09/20 15:12 Lipase 25 units/L (13-60) 01/09/20 15:12 Blood Type A POSITIVE 01/09/20 15:15 Antibody Screen Negative 01/09/20 15:15 Crossmatch See Detail 01/10/20 06:00 Active Medications - Current Medications Current Medications: Generic Name Dose Route Start Last Admin Trade Name Freq PRN Reason Stop Dose Admin Albuterol 2.5 mg 01/09/20 20:41 Proventil IH Q3HRT PRN Shortness Of Breath Morphine Sulfate 2 mg 01/09/20 20:43 01/14/20 04:34 Morphine IV 2 mg Q4H PRN Administration Pain, Moderate (4-6) Ondansetron HCl 4 mg 01/09/20 20:41 Zofran IV Q8H PRN Nausea And Vomiting Pantoprazole Sodium 40 mg 01/12/20 10:00 01/14/20 09:33 Protonix PO 40 mg BID LIZ Administration Sodium Chloride 10 ml 01/09/20 22:00 01/14/20 09:33 Sodium Chloride Flush Syringe 10 Ml IV 10 ml BID LIZ Administration Sodium Chloride 10 ml 01/09/20 20:41 Sodium Chloride Flush Syringe 10 Ml IV PRN PRN LINE FLUSH
--- NOTE | 2020-01-14 13:14 | Discharge Summary ---
Providers - Providers Date of Admission: 01/09/20 20:41 Date of discharge: 01/14/20 Attending physician: NETO REILLY 01/09/20 18:02 Consult to Physician [CONS] Stat Comment: Dr. Amaral spoke to Dr. Rivas @ 17:51- LXM Consulting Provider: BERTO RIVAS Physician Instructions: Reason For Exam: GI bleeding 01/09/20 20:43 Consult to Physician [CONS] Routine Comment: Consulting Provider: JULEE ACOSTA Physician Instructions: Reason For Exam: Gastric CA; est pt 01/11/20 06:47 Consult to Physician [CONS] Routine Comment: Consulting Provider: YASH BEY Physician Instructions: gastric bleed - GI not able to intervene - ? sx Reason For Exam: gastric bleed 01/13/20 08:13 Consult to Physician [CONS] Routine Comment: dr. babin/ francisca Consulting Provider: DK MONTEZ Physician Instructions: Reason For Exam: Bradycardia Primary care physician: [facility], Hospitalization Condition: Stable Hospital course: Patient is a 64-year-old -Italian man with a history of recently diagnosed with gastric cancer (10/2019) with history of CHF with EF 35%, hypertension, arthritis, sepsis with ESBL who presents to [facility] with complaints of melena and anemia. 01/13/20: I called [facility] transfer center, spoke with Bebeto. No beds, therefore, no Hospitalist will respond per Sea. They will call me back when bed is available==>Bebeto called me back at [phone] to tell me that beds maybe available later pending discharges, I asked to speak with MD but she says that will not happen unless beds are currently available. ECHO pending 01/14/20: ECHO reviewed, pt euvolemic, asymptomatic. 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 D/W Dr. Bey and no need to transfer. Needs outpatient follow-up with Surgical Oncologist. now SR pulse 83, Discharge Diagnoses: Acute on Chronic Anemia , s/p 2 units given this admission, current Hgb 9.1 HTN Gastric cancer-Stage IV CHF, chronic systolic heart failure Severe Malnutrition Bradycardia, mainly during sleep, need outpatient sleep study Disposition: TO HOME OR SELFCARE Time spent for discharge: 36 minutes Core Measure Documentation - Palliative Care Palliative Care/ Comfort Measures: Not Applicable - Core Measures Any of the following diagnoses?: none - VTE Discharge Requirements Deep Vein Thrombosis/Pulmonary Embolism Present on Admission: No Has pt received <5 days of overlap therapy or INR<2.0: No Anticoagulant overlap therapy prescribed at discharge: No Contraindication No Overlap Therapy order at DC: Not Indicated Exam - Physical Exam Narrative exam: Gen: cachetic, chronically illappearing, NAD, Awake, Alert, Orientated HEENT: NCAT, severely sunken/cachetic [place] muscle wasting PERRL, OP Clear Neck: supple, no adenopathy, no thyromegaly, no JVD CVS/Heart: cathy, normal S1S2, pulses present bilaterally Chest/Lungs: CTA B, Symmetrical chest expansion, good air entry bilaterally GI/Abdomen: soft, NTND, good bowel sounds, no guarding or rebound /Bladder: no suprapubic tenderness, no CVA or paraspinal tenderness Extermity/Skin: severe thenar and hypotenar muscle wasting, atropic limbs, poor mm MSK: FROM x 4 Neuro: CN 2-12 grossly intact, no new focal deficits Psych: calm - Constitutional Vitals: Temp Pulse Resp BP Pulse Ox 98.4 F 55 L 18 176/89 100 01/14/20 07:51 01/14/20 07:51 01/14/20 07:51 01/14/20 07:51 01/14/20 07:51 Plan Activity: other (no strenous activity) Diet: low salt Additional Instructions: 1) contact Dr. Cherelle Vogt, Surgical Oncologist [facility]. Surgery - surgical oncology. [address] [place] [id number]. [phone]. 2) See Dr. Santana to test for sleep apnea Follow up with: JULEE ACOSTA MD [Staff Physician] - 7 Days BERTO RIVAS MD [Staff Physician] - 7 Days ANITHA BABIN MD [Staff Physician] - 7 Days BERNARDO SANTANA MD [Staff Physician] - 7 Days Forms: Accompanied Note Prescriptions: Oxycodone HCl/Acetaminophen [Percocet 10/325 mg] 1 each PO Q6HR PRN #30 tablet PRN Reason: Pain , Severe (7-10) Pantoprazole [Protonix TAB] 40 mg PO BID #60 tablet
--- NOTE | 2020-01-14 14:29 | Hem/Onc Progress Note ---
Assessment and Plan GIST I had seen the patient in the clinic. His hemoglobin was found to be low and he was sent to the hospital. He h/o fatigue weakness likely secondary to anemia Recently diagnosed with stage IV GIST. He is awaiting prescription of Gleevec he is awaiting for a financial assistance for same. For anemia transfusion support His bleeding likely is from upper GI source. liver lesions likely mets history of microcytic anemia like WALDO In the past CEA and CA 19 normal. 01/14 s/p PRBC seen by GI team seen by Surgical team s/p IV iron trial d/c plan will come to clinic next week - Patient Problems (1) GIST, malignant Current Visit: Yes Status: Acute Qualifiers: Malignant gastrointestinal stromal tumor location: stomach Qualified Code(s): C49.A2 - Gastrointestinal stromal tumor of stomach Subjective Date of service: 01/14/20 Principal diagnosis: gist - anemia Interval history: feeling better Objective - Exam Narrative Exam: Vitals were reviewed. 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 - Constitutional Vitals: Last Vital Signs Temp 98.4 F 01/14/20 07:51 Pulse 55 L 01/14/20 07:51 Resp 18 01/14/20 07:51 BP 176/89 01/14/20 07:51 Pulse Ox 100 01/14/20 07:51 - Labs Lab Results: Laboratory Results - last 24 hr 01/14/20 04:50 WBC 5.2 RBC 3.57 L Hgb 9.1 L Hct 29.2 L MCV 82 L MCH 25 L MCHC 31 L RDW 22.9 H Plt Count 356 Medications & Allergies - Medications Allergies/Adverse Reactions: Allergies No Known Allergies Allergy (Unverified 04/17/17 06:44) Home Medications: Home Medications Medication Instructions Recorded Confirmed Last Taken Type lisinopriL [Zestril TAB] 40 mg PO QDAY #30 tablet 12/08/19 01/10/20 01/08/20 21:00 Rx Oxycodone HCl/Acetaminophen 1 each PO Q6HR PRN #30 tablet 01/14/20 Unknown Rx [Percocet 10/325 mg] Pantoprazole [Protonix TAB] 40 mg PO BID #60 tablet 01/14/20 Unknown Rx Active Medications: Generic Name Dose Route Start Last Admin Trade Name Freq PRN Reason Stop Dose Admin Albuterol 2.5 mg 01/09/20 20:41 Proventil IH Q3HRT PRN Shortness Of Breath Morphine Sulfate 2 mg 01/09/20 20:43 01/14/20 04:34 Morphine IV 2 mg Q4H PRN Administration Pain, Moderate (4-6) Ondansetron HCl 4 mg 01/09/20 20:41 Zofran IV Q8H PRN Nausea And Vomiting Pantoprazole Sodium 40 mg 01/12/20 10:00 01/14/20 09:33 Protonix PO 40 mg BID LIZ Administration Sodium Chloride 10 ml 01/09/20 22:00 01/14/20 09:33 Sodium Chloride Flush Syringe 10 Ml IV 10 ml BID LIZ Administration Sodium Chloride 10 ml 01/09/20 20:41 Sodium Chloride Flush Syringe 10 Ml IV PRN PRN LINE FLUSH
[2020-01-14] MEDS ORDERED: LISINOPRIL 40 MG TAB PO SCH (15:45)
[2020-01-14 18:26] VITALS: BP 160/99
== END 2020-01-14 17:30 | disposition home or self-care (01) | DRG 377 ==
LOC: ED 12:51 → 2B-ACE 20:41
PROVIDERS: ADMIT Internal Medicine; ATTEND Internal Medicine
PROC: 30233N1 Transfusion of Nonautologous Red Blood Cells into Peripheral Vein, Percutaneous Approach (ICD-10-PCS; principal; 2020-01-10)
DX: K92.1 Melena (principal); E43 Unspecified severe protein-calorie malnutrition; I50.22 Chronic systolic (congestive) heart failure; C16.9 Malignant neoplasm of stomach, unspecified; I42.8 Other cardiomyopathies; C78.7 Secondary malignant neoplasm of liver and intrahepatic bile duct; D62 Acute posthemorrhagic anemia; K92.2 Gastrointestinal hemorrhage, unspecified; Z96.641 Presence of right artificial hip joint; M19.90 Unspecified osteoarthritis, unspecified site; I11.0 Hypertensive heart disease with heart failure; R00.1 Bradycardia, unspecified; Z85.00 Personal history of malignant neoplasm of unspecified digestive organ; Z68.21 Body mass index [BMI] 21.0-21.9, adult; Z71.3 Dietary counseling and surveillance
CPT/HCPCS: 36415; 80048; 80076; 83690; 85007; 85025; 85027; 86850; 86900; 86901; 86920; 87086; 93005; 93010; 93306; 96374; G0378; C9113; J2270; J2916; J7040; P9016

== ENCOUNTER 2020-03-01 08:50 | Emergency (ER) | payer OTHER ==
[2020-03-01] MEDS ORDERED: methylPREDNISolone Sod Succinate 125 MG/2 ML INJ ONE (09:13)
[2020-03-01] MEDS ORDERED: diphenhydrAMINE 50 MG/ML VIAL ONE (09:13)
[2020-03-01] MEDS ORDERED: methylPREDNISolone Sod Succinate 125 MG/2 ML INJ IV ONE (09:20)
[2020-03-01] MEDS ORDERED: diphenhydrAMINE 50 MG/ML VIAL IV ONE (09:20)
[2020-03-01] MEDS ORDERED: FAMOTIDINE 20 MG/2 ML INJ IV ONE (10:29)
[2020-03-01 10:43] VITALS: BP 192/88
--- NOTE | 2020-03-01 11:21 | Emergency Department Report ---
ED General Adult HPI - General Chief complaint: Allergic Reaction Stated complaint: ALLERGIC REACTION Time Seen by Provider: 03/01/20 09:39 Source: patient Mode of arrival: Ambulatory Limitations: No Limitations - History of Present Illness Initial comments: The patient presents to the emergency department with a chief complaint of his upper lip swelling. Patient states that he started taking lisinopril 2 weeks ago and yesterday noticed that his upper lip was swelling. Patient denies any issue swallowing, breathing, or speaking. Patient has no other complaints. -: Sudden Severity scale (0 -10): 0 Consistency: constant Improves with: none Worsens with: none Associated Symptoms: denies other symptoms Treatments Prior to Arrival: none - Related Data Previous Rx's Medication Instructions Recorded Last Taken Type lisinopriL [Zestril TAB] 40 mg PO QDAY #30 tablet 12/08/19 01/08/20 21:00 Rx Oxycodone HCl/Acetaminophen 1 each PO Q6HR PRN #30 tablet 01/14/20 Unknown Rx [Percocet 10/325 mg] Pantoprazole [Protonix TAB] 40 mg PO BID #60 tablet 01/14/20 Unknown Rx amLODIPine [Norvasc] 10 mg PO DAILY #30 tab 03/01/20 Unknown Rx hydroCHLOROthiazide [Hctz] 12.5 mg PO QDAY #30 capsule 03/01/20 Unknown Rx predniSONE [Deltasone] 20 mg PO DAILY #15 tablet 03/01/20 Unknown Rx Allergies Allergy/AdvReac Type Severity Reaction Status Date / Time No Known Allergies Allergy Verified 03/01/20 08:51 ED Review of Systems ROS: Stated complaint: ALLERGIC REACTION Other details as noted in HPI Constitutional: denies: chills, fever Eyes: denies: eye pain, eye discharge, vision change ENT: other (lip swelling). denies: ear pain, throat pain Respiratory: denies: cough, shortness of breath, wheezing Cardiovascular: denies: chest pain, palpitations Endocrine: no symptoms reported Gastrointestinal: denies: abdominal pain, nausea, diarrhea Genitourinary: denies: urgency, dysuria Musculoskeletal: denies: back pain, joint swelling, arthralgia Skin: denies: rash, lesions Neurological: denies: headache, weakness, paresthesias Psychiatric: denies: anxiety, depression Hematological/Lymphatic: denies: easy bleeding, easy bruising ED Past Medical Hx - Past Medical History Hx Hypertension: Yes Hx Heart Attack/AMI: No Hx Congestive Heart Failure: No Hx Diabetes: No Hx Deep Vein Thrombosis: No Hx Pulmonary Embolism: No Hx Liver Disease: No Hx Renal Disease: No Hx Sickle Cell Disease: No Hx Arthritis: Yes Hx Seizures: No Hx Asthma: No Hx COPD: No Hx Dementia: No Hx HIV: No Additional medical history: Gastric CA, stage IV - Surgical History Hx Coronary Stent: No Hx Open Heart Surgery: No Hx Pacemaker: No Hx Internal Defibrillator: No Hx Cholecystectomy: No Hx Appendectomy: No Hx Breast Surgery: No Additional Surgical History: Left hip replacement - Social History Smoking Status: Never Smoker Substance Use Type: None - Medications Home Medications: Home Medications Medication Instructions Recorded Confirmed Last Taken Type lisinopriL [Zestril TAB] 40 mg PO QDAY #30 tablet 12/08/19 01/10/20 01/08/20 21:00 Rx Oxycodone HCl/Acetaminophen 1 each PO Q6HR PRN #30 tablet 01/14/20 Unknown Rx [Percocet 10/325 mg] Pantoprazole [Protonix TAB] 40 mg PO BID #60 tablet 01/14/20 Unknown Rx amLODIPine [Norvasc] 10 mg PO DAILY #30 tab 03/01/20 Unknown Rx hydroCHLOROthiazide [Hctz] 12.5 mg PO QDAY #30 capsule 03/01/20 Unknown Rx predniSONE [Deltasone] 20 mg PO DAILY #15 tablet 03/01/20 Unknown Rx ED Physical Exam - General Limitations: No Limitations General appearance: alert, in no apparent distress - Head Head exam: Present: atraumatic, normocephalic - Eye Eye exam: Present: normal appearance - ENT ENT exam: Present: mucous membranes moist, other (Upper lip is swollen; no airway compromise; patient able to swallow without difficulty; patient able speak without difficulty) - Neck Neck exam: Present: normal inspection - Respiratory Respiratory exam: Present: normal lung sounds bilaterally. Absent: respiratory distress - Cardiovascular Cardiovascular Exam: Present: regular rate, normal rhythm. Absent: systolic murmur, diastolic murmur, rubs, gallop - GI/Abdominal GI/Abdominal exam: Present: soft, normal bowel sounds - Rectal Rectal exam: Present: deferred - Extremities Exam Extremities exam: Present: normal inspection - Back Exam Back exam: Present: normal inspection - Neurological Exam Neurological exam: Present: alert, oriented X3 - Psychiatric Psychiatric exam: Present: normal affect, normal mood - Skin Skin exam: Present: warm, dry, intact, normal color. Absent: rash ED Course Vital Signs 03/01/20 03/01/20 03/01/20 08:53 09:21 10:42 Temperature 98.2 F Pulse Rate 84 98 H 82 Respiratory 20 16 16 Rate Blood Pressure 183/109 Blood Pressure 192/88 [Right] O2 Sat by Pulse 100 100 100 Oximetry ED Medical Decision Making - Medical Decision Making Patient received IV steroids, IV Solu-Medrol, and IV Benadryl in the ED Patient was observed for approximately 2 and half hours in the emergency department without any signs of airway compromise Patient instructed to stop taking lisinopril Critical care attestation.: If time is entered above; I have spent that time in minutes in the direct care of this critically ill patient, excluding procedure time. ED Disposition Clinical Impression: Angioedema Disposition: DC- TO HOME OR SELFCARE Is pt being admited?: No Does the pt Need Aspirin: No Condition: Stable Instructions: Angioedema (ED) Additional Instructions: Please return if you have any difficulty breathing Please stop taking lisinopril for your hypertension Referrals: PRIMARY CARE [Primary Care Provider] - 3-5 Days [facility] [Provider Group] - 3-5 Days [facility] [Provider Group] - 3-5 Days Time of Disposition: 11:24
== END 2020-03-01 11:43 | disposition home or self-care (01) ==
LOC: ED 08:50
DX: T78.3XXA Angioneurotic edema, initial encounter (principal); Y92.89 Other specified places as the place of occurrence of the external cause; I10 Essential (primary) hypertension; M19.90 Unspecified osteoarthritis, unspecified site
CPT/HCPCS: 96374; 96375; 99282; J1200; J2930

== ENCOUNTER 2020-05-13 14:25 | Emergency (ER) | payer MEDICARE, OTHER ==
[2020-05-13 14:44] VITALS: BP 184/103
--- NOTE | 2020-05-13 15:12 | Emergency Department Report ---
HPI - General Chief Complaint: Allergic Reaction Time Seen by Provider: 05/13/20 15:05 - HPI HPI: 64-year-old male presents to the emergency department with complaint of some swelling to the left upper lip since yesterday afternoon. He denies any swellin g of the tongue, throat, difficulty swallowing, shortness of breath, fever. The patient was just recently started on amlodipinebenazepril about 3 or 4 days ago by his primary care physician, Dr. Chacko. He has a past medical history of hypertension, a gastric mass, CHF. He has not taken anything for symptoms prior to presentation today. ED Past Medical Hx - Past Medical History Hx Hypertension: Yes Hx Heart Attack/AMI: No Hx Congestive Heart Failure: No Hx Diabetes: No Hx Deep Vein Thrombosis: No Hx Pulmonary Embolism: No Hx Liver Disease: No Hx Renal Disease: No Hx Sickle Cell Disease: No Hx Arthritis: Yes Hx Seizures: No Hx Asthma: No Hx COPD: No Hx Dementia: No Hx HIV: No Additional medical history: Gastric CA, stage IV - Surgical History Hx Coronary Stent: No Hx Open Heart Surgery: No Hx Pacemaker: No Hx Internal Defibrillator: No Hx Cholecystectomy: No Hx Appendectomy: No Hx Breast Surgery: No Additional Surgical History: Left hip replacement - Social History Smoking Status: Never Smoker Substance Use Type: None - Medications Home Medications: Home Medications Medication Instructions Recorded Confirmed Last Taken Type lisinopriL [Zestril TAB] 40 mg PO QDAY #30 tablet 12/08/19 01/10/20 01/08/20 21:00 Rx Oxycodone HCl/Acetaminophen 1 each PO Q6HR PRN #30 tablet 01/14/20 Unknown Rx [Percocet 10/325 mg] Pantoprazole [Protonix TAB] 40 mg PO BID #60 tablet 01/14/20 Unknown Rx amLODIPine [Norvasc] 10 mg PO DAILY #30 tab 03/01/20 Unknown Rx hydroCHLOROthiazide [Hctz] 12.5 mg PO QDAY #30 capsule 03/01/20 Unknown Rx predniSONE [Deltasone] 20 mg PO DAILY #15 tablet 03/01/20 Unknown Rx amLODIPine 10 mg PO DAILY #30 tab 05/13/20 Unknown Rx predniSONE [Deltasone] 20 mg PO QDAY #3 tab 05/13/20 Unknown Rx ED Review of Systems ROS: Stated complaint: ALLERGIC REACTION Other details as noted in HPI Comment: All other systems reviewed and negative Constitutional: denies: chills, fever Eyes: denies: eye pain, vision change ENT: other (upper left lip swelling). denies: ear pain, throat pain Respiratory: denies: cough, shortness of breath Cardiovascular: denies: chest pain, palpitations Gastrointestinal: denies: abdominal pain, vomiting Skin: denies: rash, lesions Neurological: denies: headache, weakness Physical Exam - Physical Exam Vital Signs: Vital Signs 05/13/20 14:44 Temperature 98.7 F Pulse Rate 68 Respiratory 18 Rate Blood Pressure 184/103 [Left] O2 Sat by Pulse 100 Oximetry Physical Exam: GENERAL: The patient is well-developed well-nourished. HENT: Normocephalic. Atraumatic. Patient has moist mucous membranes. Oropharynx is clear. No drooling or trismus. There is some left upper lip swelling but no rash or lesions. EYES: Extraocular motions are intact. NECK: Supple. Trachea is midline. CHEST/LUNGS: Clear to auscultation. There is no respiratory distress noted. HEART/CARDIOVASCULAR: Regular. There is no tachycardia. There is no murmur. ABDOMEN: There is no abdominal distention. SKIN: Skin is warm and dry. NEURO: The patient is awake, alert, and oriented. The patient is cooperative. The patient has no focal neurologic deficits. Normal speech. MUSCULOSKELETAL: There is no tenderness or deformity. There is no limitation range of motion. There is no evidence of acute injury. ED Course Vital Signs 05/13/20 14:44 Temperature 98.7 F Pulse Rate 68 Respiratory 18 Rate Blood Pressure 184/103 [Left] O2 Sat by Pulse 100 Oximetry ED Medical Decision Making - Lab Data Result diagrams: 05/13/20 15:18 05/13/20 15:18 - Medical Decision Making This patient has some limited left upper lip angioedema after starting an LUIS MANUEL inhibitor about 3 days ago. There is no swelling of the tongue, throat. There is no drooling or trismus. No difficulty swallowing. No shortness of breath and no chest pain. Patient does have some hypertension but otherwise his vital signs have been stable throughout his ED course. Labs are unremarkable including CBC and metabolic panel. Patient was given a dose of steroids. His angioedema has been going on since yesterday and has not progressed since. He w ill be discharged home to follow-up with his primary care physician and has good outpatient follow-up. I have discontinued his LUIS MANUEL inhibitor and he will continue with the Norvasc/amlodipine until he is able to follow-up with his primary care physician in the next few days. He will return to the ER with any worsening of his symptoms or any acute distress. Critical Care Time: No Critical care attestation.: If time is entered above; I have spent that time in minutes in the direct care of this critically ill patient, excluding procedure time. ED Disposition Clinical Impression: Angioedema Qualifiers: Encounter type: initial encounter Qualified Code(s): T78.3XXA - Angioneurotic edema, initial encounter Hypertension Qualifiers: Hypertension type: essential hypertension Qualified Code(s): I10 - Essential (primary) hypertension Disposition: TO HOME OR SELFCARE Is pt being admited?: No Condition: Stable Instructions: Angioedema (ED), Hypertension (ED) Additional Instructions: Please follow-up with your primary care physician regarding how to proceed with your blood pressure medications. Stop taking the medication with benazepril and it. I have given you a separate prescription for the amlodipine. Try to stay away from foods that are high in salt and caffeinated products to help with your blood pressure. Keep a blood pressure log. Return to the emergency department immediately with any worsening of the swelling of your lips, development of swelling of the tongue or throat, difficulty swallowing, chest pain or shortness of breath, or with any acute distress. Prescriptions: amLODIPine 10 mg PO DAILY #30 tab predniSONE [Deltasone] 20 mg PO QDAY #3 tab Referrals: VARGAS CHACKO MD [Staff Physician] - 2-3 Days Time of Disposition: 16:32
[2020-05-13 15:50] LABS: Basophils % (Auto) 0.6 % (0.0-1.8); Eosinophils % (Auto) 1.6 % (0.0-4.3); Hematocrit 37.6 % (35.5-45.6); Hemoglobin 12.6 gm/dl (11.8-15.2); Lymphocytes # (Auto) 0.7 K/mm3 (1.2-5.4); Lymphocytes % (Auto) 24.6 % (13.4-35.0); Mean Corpuscular HGB Conc 34 % (32-34); Mean Corpuscular Volume 100 fl (84-94); Monocytes # (Auto) 0.3 K/mm3 (0.0-0.8); Platelet Count 195 K/mm3 (140-440); Red Blood Count 3.78 M/mm3 (3.65-5.03); Red Cell Distribution Width 13.9 % (13.2-15.2)
[2020-05-13 16:25] LABS: Blood Urea Nitrogen 14 mg/dL (9-20)
[2020-05-13 16:26] LABS: BUN/Creatinine Ratio 18; Calcium 8.9 mg/dL (8.4-10.2)
[2020-05-13] MEDS ORDERED: predniSONE 20 MG TAB PO ONE (16:29)
[2020-05-13 16:37] LABS: Hemolysis Index 155
== END 2020-05-13 16:44 | disposition home or self-care (01) ==
LOC: ED 14:25
DX: T78.3XXA Angioneurotic edema, initial encounter (principal); I10 Essential (primary) hypertension; M19.90 Unspecified osteoarthritis, unspecified site; Z79.899 Other long term (current) drug therapy
CPT/HCPCS: 36415; 80048; 85025; 99283; J7512

== ENCOUNTER 2021-04-23 08:10 | Inpatient (IN) | payer MEDICARE ==
[2021-04-23] MEDS ORDERED: SODIUM CHLORIDE 0.9% 1000 ML 1,000 ML IV ONE (09:48)
--- NOTE | 2021-04-23 09:53 | Emergency Department Report ---
- General Chief complaint: Weakness Stated complaint: PASSED OUT/ABD PAIN Time Seen by Provider: 04/23/21 09:39 Source: patient Mode of arrival: Wheelchair Limitations: No Limitations - History of Present Illness Initial comments: 65-year-old male, history of GIST tumor, treated with Gleevac, presents to ED with complaint of generalized weakness. Patient apparently had a syncopal episode this morning. Also had 2 syncopal episodes on yesterday. Patient reports pain all over, including epigastric abdominal pain. Patient states he noticed dark blood in his stool this morning. Patient reports decreased appetite over the last few days with some nausea and vomiting. Patient is poor historian, however he denies having any abdominal surgery for his stomach cancer. Patient was previously seeing Dr. Javier, oncologist. States he has not seen an oncologist in "a while" since Dr. Javier's office moved. She also states he does not have a GI doctor. Patient states he currently has his Gleevec medication, but states he is inconsistent about taking it. MD Complaint: generalized weakness -: days(s) (3) Location: generalized Severity: moderate Quality: aching Consistency: constant Improves with: none Worsens with: none Associated Symptoms: loss of appetite, nausea/vomiting. denies: fever/chills, shortness of breath - Related Data Previous Rx's Medication Instructions Recorded Last Taken Type lisinopriL [Zestril TAB] 40 mg PO QDAY #30 tablet 12/08/19 01/08/20 21:00 Rx Oxycodone HCl/Acetaminophen 1 each PO Q6HR PRN #30 tablet 01/14/20 Unknown Rx [Percocet 10/325 mg] Pantoprazole [Protonix TAB] 40 mg PO BID #60 tablet 01/14/20 Unknown Rx amLODIPine [Norvasc] 10 mg PO DAILY #30 tab 03/01/20 Unknown Rx hydroCHLOROthiazide [Hctz] 12.5 mg PO QDAY #30 capsule 03/01/20 Unknown Rx predniSONE [Deltasone] 20 mg PO DAILY #15 tablet 03/01/20 Unknown Rx amLODIPine 10 mg PO DAILY #30 tab 05/13/20 Unknown Rx predniSONE [Deltasone] 20 mg PO QDAY #3 tab 05/13/20 Unknown Rx Allergies Allergy/AdvReac Type Severity Reaction Status Date / Time No Known Allergies Allergy Verified 03/01/20 08:51 ED Review of Systems ROS: Stated complaint: PASSED OUT/ABD PAIN Other details as noted in HPI Comment: All other systems reviewed and negative Constitutional: denies: chills, fever Cardiovascular: chest pain Gastrointestinal: abdominal pain, nausea, vomiting, melena ED Past Medical Hx - Past Medical History Previous Medical History?: Yes Hx Hypertension: Yes Hx Heart Attack/AMI: No Hx Congestive Heart Failure: No Hx Diabetes: No Hx Deep Vein Thrombosis: No Hx Pulmonary Embolism: No Hx Liver Disease: No Hx Renal Disease: No Hx Sickle Cell Disease: No Hx Arthritis: Yes Hx Seizures: No Hx Asthma: No Hx COPD: No Hx Dementia: No Hx HIV: No Additional medical history: Gastric CA, stage IV - Surgical History Past Surgical History?: Yes Hx Coronary Stent: No Hx Open Heart Surgery: No Hx Pacemaker: No Hx Internal Defibrillator: No Hx Cholecystectomy: No Hx Appendectomy: No Hx Breast Surgery: No Additional Surgical History: Left hip replacement - Social History Smoking Status: Never Smoker Substance Use Type: Alcohol - Medications Home Medications: Home Medications Medication Instructions Recorded Confirmed Last Taken Type lisinopriL [Zestril TAB] 40 mg PO QDAY #30 tablet 12/08/19 01/10/20 01/08/20 21:00 Rx Oxycodone HCl/Acetaminophen 1 each PO Q6HR PRN #30 tablet 01/14/20 Unknown Rx [Percocet 10/325 mg] Pantoprazole [Protonix TAB] 40 mg PO BID #60 tablet 01/14/20 Unknown Rx amLODIPine [Norvasc] 10 mg PO DAILY #30 tab 03/01/20 Unknown Rx hydroCHLOROthiazide [Hctz] 12.5 mg PO QDAY #30 capsule 03/01/20 Unknown Rx predniSONE [Deltasone] 20 mg PO DAILY #15 tablet 03/01/20 Unknown Rx amLODIPine 10 mg PO DAILY #30 tab 05/13/20 Unknown Rx predniSONE [Deltasone] 20 mg PO QDAY #3 tab 05/13/20 Unknown Rx ED Physical Exam - General Limitations: No Limitations General appearance: alert, in no apparent distress - Head Head exam: Present: atraumatic, normocephalic - Eye Eye exam: Present: EOMI - ENT ENT exam: Present: mucous membranes moist - Neck Neck exam: Present: normal inspection - Respiratory Respiratory exam: Present: normal lung sounds bilaterally. Absent: respiratory distress - Cardiovascular Cardiovascular Exam: Present: regular rate, normal rhythm - GI/Abdominal GI/Abdominal exam: Present: soft, tenderness (Epigastric). Absent: distended - Rectal Rectal exam: Present: heme (+) stool, black stool - Extremities Exam Extremities exam: Present: normal inspection - Neurological Exam Neurological exam: Present: alert, oriented X3 - Psychiatric Psychiatric exam: Present: normal affect, normal mood - Skin Skin exam: Present: warm, dry, intact, normal color ED Course Vital Signs 04/23/21 04/23/21 04/23/21 08:45 08:54 09:01 Temperature 98.6 F Pulse Rate 66 73 75 Respiratory 16 26 H 14 Rate Blood Pressure 124/67 Blood Pressure 92/45 [Right] O2 Sat by Pulse 99 99 Oximetry 04/23/21 04/23/21 04/23/21 09:31 09:44 10:01 Temperature Pulse Rate 77 62 67 Respiratory 19 16 Rate Blood Pressure 124/67 124/67 Blood Pressure [Right] O2 Sat by Pulse 100 83 L Oximetry 04/23/21 04/23/21 04/23/21 10:31 11:01 11:31 Temperature Pulse Rate 64 66 65 Respiratory 12 12 12 Rate Blood Pressure 115/52 126/42 131/36 Blood Pressure [Right] O2 Sat by Pulse 100 100 100 Oximetry 04/23/21 04/23/21 04/23/21 11:59 12:01 12:15 Temperature 98 F 98 F Pulse Rate 74 75 68 Respiratory 16 13 14 Rate Blood Pressure 138/55 138/55 128/59 Blood Pressure [Right] O2 Sat by Pulse 99 99 100 Oximetry 04/23/21 04/23/21 04/23/21 12:31 13:00 13:30 Temperature Pulse Rate 70 72 78 Respiratory 16 16 16 Rate Blood Pressure 138/69 142/61 152/75 Blood Pressure [Right] O2 Sat by Pulse 100 100 Oximetry 04/23/21 04/23/21 14:13 14:31 Temperature Pulse Rate 84 95 H Respiratory 17 17 Rate Blood Pressure 122/42 108/88 Blood Pressure [Right] O2 Sat by Pulse Oximetry - Reevaluation(s) Reevaluation #1: 04/23/21 13:53 IV team was called to place CT for CTA, however she was unsuccessful. Right femoral central line placed. - Consultations Consultation #1: 04/23/21 11:[address]Chokshi GI. Will consult on patient. Wants CTA abdomen pelvis. - Central Line Placement Right Femoral Consent Obtained: written consent Time Out Performed: Yes Patient Placed on Monitor/Pulse Ox: Yes MD Prep: mask, gown, gloves Central Line Prep: Chlorhexidine scrub Local Anesthesia Used: Lidocaine 1% Amount of Anesthesia Used (mls): 3 Ultrasound Used for Placement: No Central Line Lumen Inserted: triple Reason for Insertion: Emergency Venous Access Bloods Obtained for Lab: No Central Line Position: good blood return, all ports aspirated, flus, sutured in place with nyl Dressing Applied: Tegaderm Patient Tolerated Procedure: well Complications: none ED Medical Decision Making - Lab Data Result diagrams: 04/23/21 10:15 04/23/21 10:15 - Radiology Data Radiology results: report reviewed, image reviewed - Medical Decision Making 65-year-old male, history of stage IV GIST tumor presents to ED following multiple syncopal episodes today and yesterday. Patient reports generalized weakness, decreased appetite, and onset of GI bleeding this morning. Initially slightly hypotensive upon arrival. Patient has melena on exam, stool is guaiac positive. Hemoglobin is 3.4. PRBC transfusion ordered. I spoke with on-call GI, who recommended CTA of the abdomen to assess for active bleeding. CT is negative for active bleed, but does show enlarging GIST tumor with worsening metastatic disease. Patient will be admitted by hospitalist, Dr. Jo, for further management. - Differential Diagnosis GI bleed Critical Care Time: Yes Critical care time in (mins) excluding proc time.: 35 Critical care attestation.: If time is entered above; I have spent that time in minutes in the direct care of this critically ill patient, excluding procedure time. Critical Care Time: 35 min ED Disposition Clinical Impression: Symptomatic anemia, Hypotension, Syncope GI bleed Qualifiers: GI bleed type/associated pathology: unspecified gastrointestinal hemorrhage type Qualified Code(s): K92.2 - Gastrointestinal hemorrhage, unspecified Disposition: OP ADMIT IP TO THIS HOSP Is pt being admited?: Yes Condition: Stable Time of Disposition: 13:58
--- NOTE | 2021-04-23 10:08 | XRay Report ---
CHEST 1 VIEW INDICATION / CLINICAL INFORMATION: weakness. COMPARISON: 11/23/2019 FINDINGS: SUPPORT DEVICES: None. HEART / MEDIASTINUM: Cardiomegaly LUNGS / PLEURA: No significant pulmonary or pleural abnormality. No pneumothorax. ADDITIONAL FINDINGS: No significant additional findings. IMPRESSION: Cardiomegaly without acute disease or interval change from 11/23/2019 Signer Name: Bonifacio Mendoza MD FACBlaise Signed: 04/23/2021 10:03 AM Workstation Name: [id number]
[2021-04-23 10:40] LABS: Mean Corpuscular HGB Conc 27 % (32-34); Mean Corpuscular Volume 78 fl (84-94); Platelet Count 340 K/mm3 (140-440)
[2021-04-23 10:42] LABS: Hematocrit 12.5 % (35.5-45.6); Hemoglobin 3.4 gm/dl (11.8-15.2); Red Cell Distribution Width 21.6 % (13.2-15.2)
--- NOTE | 2021-04-23 10:45 | Electrocardiograph Report ---
[facility] Test Date: 2021-04-23 Test Time: 09:07:41 Pat Name: BRITNI ERVIN Department: Room: Gender: M [employer] The[employer]ist: eloina : 1955 Requested By: KALEY GARCÍA Order Number: [id number] Reading MD: Marlon Mathew Measurements Intervals [place] Rate: 66 P: 56 IN: 143 QRS: 20 QRSD: 103 T: -42 QT: 417 QTc: 437 Interpretive Statements Sinus rhythm Frequent PACs Probable LVH with secondary repol abnrm No previous ECG available for comparison Electronically Signed On 04-23-2021 10:45:38 EDT by Marlon Mathew
[2021-04-23] MEDS ORDERED: SODIUM CHLORIDE 0.9% 500 ML 500 ML IV ONE (10:52)
[2021-04-23] MEDS ORDERED: PANTOPRAZOLE 40 MG INJ IV ONE (10:52)
[2021-04-23 10:59] LABS: INR 1.29 (0.87-1.13); Partial Thromboplastin Time 20.4 Sec. (24.2-36.6)
[2021-04-23 11:04] LABS: BUN/Creatinine Ratio 23; Blood Urea Nitrogen 28 mg/dL (9-20); Calcium 7.8 mg/dL (8.4-10.2); Hemolysis Index 0
[2021-04-23 11:37] LABS: Band Neutrophils # (Manual) 0.1 K/mm3; Total Cells Counted 100
[2021-04-23 11:38] LABS: Anisocytosis 2+; Hypochromasia 2+
[2021-04-23 11:41] LABS: Macrocytosis Few
[2021-04-23 11:42] LABS: Platelet Estimate Consistent w Auto
[2021-04-23] MEDS ORDERED: NON-FORMULARY EACH (Oxycodone Hcl/Acetaminophen [Percocet 10/325 Mg] 1 EACH Tablet) PO PRN (13:44)
--- NOTE | 2021-04-23 13:54 | History and Physical Report ---
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 Patient reports "I passed out and I have blood in my stool". Patient states that he has experienced multiple episodes of dark tarry stools over the past 2 weeks. Pat ient acknowledges generalized muscular weakness, decreased exercise tolerance, dyspnea on exertion, as well as melanotic stool. Patient acknowledges 2 episodes of loss of consciousness in the past 24 hours. Patient states that he was ambulating to his bedroom and experienced a sudden onset of weakness and lightheadedness and subsequently lost consciousness and fell to the floor. Patient states that he regained consciousness and called his sons. Patient family reported the home and subsequently transported the patient to [facility] via private vehicle for further care and evaluation of the aforementioned symptoms. The patient was seen and evaluated in the emergency department. All lab and imaging studies reviewed. Patient was found to have a systolic blood pressure in the 90s as well as a hemoglobin of 3 which is consistent with acute blood loss anemia secondary to upper gastrointestinal hemorrhage. Patient symptoms suspected secondary to GIST tumor. Patient admitted to [facility] and initiated on GI bleed protocol as well as packed red blood cell transfusion and PPI therapy. GI team consulted in ED. The patient is pending endoscopic evaluation as per GI team. Patient denies fever, chills, chest pain, palpitation, productive cough, skin rash, recent ill contacts, ingestion of food/water from new or different sources, or known exposure to COVID-19. Prior admission on 01/09/2020 reviewed. All medication listed at time of admission has been reconciled. Advanced care planning conducted in ED. Past History Past Medical History: arthritis, cancer, hypertension, other (See HPI) Past Surgical History: total hip replacement Social history: . denies: smoking, alcohol abuse, prescription drug abuse Family history: hypertension Medications and Allergies Allergies Allergy/AdvReac Type Severity Reaction Status Date / Time No Known Allergies Allergy Verified 03/01/20 08:51 Home Medications Medication Instructions Recorded Confirmed Last Taken Type lisinopriL [Zestril TAB] 40 mg PO QDAY #30 tablet 12/08/19 01/10/20 01/08/20 21:00 Rx Oxycodone HCl/Acetaminophen 1 each PO Q6HR PRN #30 tablet 01/14/20 Unknown Rx [Percocet 10/325 mg] Pantoprazole [Protonix TAB] 40 mg PO BID #60 tablet 01/14/20 Unknown Rx amLODIPine [Norvasc] 10 mg PO DAILY #30 tab 03/01/20 Unknown Rx hydroCHLOROthiazide [Hctz] 12.5 mg PO QDAY #30 capsule 03/01/20 Unknown Rx predniSONE [Deltasone] 20 mg PO DAILY #15 tablet 03/01/20 Unknown Rx amLODIPine 10 mg PO DAILY #30 tab 05/13/20 Unknown Rx predniSONE [Deltasone] 20 mg PO QDAY #3 tab 05/13/20 Unknown Rx Active Meds: Active Medications Miscellaneous Medication (Oxycodone Hcl/Acetaminophen [Percocet 10/325 Mg]) 1 each PO Q6HR PRN PRN Reason: Pain , Severe (7-10) Pantoprazole Sodium (Pantoprazole 40 Mg Inj) 40 mg IV BID LIZ Sodium Chloride (Sodium Chloride 0.9% 10 Ml Flush Syringe) 10 ml IV BID LIZ Sodium Chloride (Sodium Chloride 0.9% 10 Ml Flush Syringe) 10 ml IV PRN PRN PRN Reason: LINE FLUSH Review of Systems Constitutional: fatigue, weakness, no weight loss, no weight gain, no fever, no chills Ears, nose, mouth and throat: no ear pain, no ear discharge, no tinnitis, no nose pain Cardiovascular: syncope, no chest pain, no palpitations, no rapid/irregular heart beat Respiratory: no cough, no excessive sputum, no shortness of breath, no dyspnea on exertion Gastrointestinal: nausea, BRBPR, melena, no abdominal pain, no constipation, no early satiety, no heartburn, no belching, no excessive gas, no jaundice Genitourinary Male: no hematuria, no flank pain, no discharge, no urinary frequency, no urinary hesitancy Rectal: no pain, no incontinence, no bleeding Musculoskeletal: no neck stiffness, no neck pain, no arm numbness/tingling, no low back pain, no shooting leg pain Integumentary: no rash, no pruritis, no wounds, no jaundice, no boils Neurological: no head injury, no transient paralysis, no weakness, no parathesias, no numbness, no tingling, no syncope Psychiatric: no anxiety, no change in sleep habits, no change in appetite, no change in libido, no suicidal ideation Endocrine: no cold intolerance, no polyphagia, no excessive thirst, no polydipsia, no polyuria, no excessive sweating, no flushing Hematologic/Lymphatic: no easy bruising, no easy bleeding Allergic/Immunologic: no urticaria, no allergic rhinitis, no wheezing Exam - Constitutional Vitals: Temp Pulse Resp BP Pulse Ox 98 F 68 14 128/59 100 04/23/21 12:15 04/23/21 12:15 04/23/21 12:15 04/23/21 12:15 04/23/21 12:15 General appearance: Present: mild distress - EENT Eyes: Present: PERRL (Conjunctival pallor) ENT: hearing intact, clear oral mucosa - Neck Neck: Present: supple, normal ROM - Respiratory Respiratory effort: normal Respiratory: bilateral: CTA - Cardiovascular Heart Sounds: Present: S1 & S2. Absent: rub, click - Extremities Extremities: pulses symmetrical, No edema Peripheral Pulses: within normal limits - Abdominal General gastrointestinal: Present: soft, non-tender, non-distended, normal bowel sounds Male genitourinary: Present: normal - Integumentary Integumentary: Present: clear, dry, pale - Musculoskeletal Musculoskeletal: generalized weakness - Psychiatric Psychiatric: appropriate mood/affect, cooperative - Neurologic Neurologic: CNII-XII intact HEART Score - HEART Score Troponin: Troponin T < 0.010 ng/mL (0.00-0.029) 04/23/21 10:15 Results - Labs CBC & Chem 7: 04/23/21 10:15 04/23/21 10:15 Labs: Abnormal lab results 04/23/21 04/23/21 04/23/21 Range/Units 09:57 10:15 10:15 WBC 12.9 H (4.5-11.0) K/mm3 RBC 1.60 L (3.65-5.03) M/mm3 Hgb 3.4 L* (11.8-15.2) gm/dl Hct 12.5 L* (35.5-45.6) % MCV 78 L (84-94) fl MCH 21 L (28-32) pg MCHC 27 L (32-34) % RDW 21.6 H (13.2-15.2) % Seg Neuts % (Manual) 94.0 H (40.0-70.0) % Lymphocytes % (Manual) 1.0 L (13.4-35.0) % Seg Neutrophils # Man 12.1 H (1.8-7.7) K/mm3 Lymphocytes # (Manual) 0.1 L (1.2-5.4) K/mm3 PT 15.9 H (12.2-14.9) Sec. INR 1.29 H (0.87-1.13) APTT 20.4 L (24.2-36.6) Sec. BUN (9-20) mg/dL Glucose (75-100) mg/dL Calcium (8.4-10.2) mg/dL Crossmatch See Detail 04/23/21 Range/Units 10:15 WBC (4.5-11.0) K/mm3 RBC (3.65-5.03) M/mm3 Hgb (11.8-15.2) gm/dl Hct (35.5-45.6) % MCV (84-94) fl MCH (28-32) pg MCHC (32-34) % RDW (13.2-15.2) % Seg Neuts % (Manual) (40.0-70.0) % Lymphocytes % (Manual) (13.4-35.0) % Seg Neutrophils # Man (1.8-7.7) K/mm3 Lymphocytes # (Manual) (1.2-5.4) K/mm3 PT (12.2-14.9) Sec. INR (0.87-1.13) APTT (24.2-36.6) Sec. BUN 28 H (9-20) mg/dL Glucose 139 H (75-100) mg/dL Calcium 7.8 L (8.4-10.2) mg/dL Crossmatch Assessment and Plan - Patient Problems (1) Gastrointestinal hemorrhage Current Visit: Yes Status: Acute Qualifiers: GI bleed type/associated pathology: unspecified gastrointestinal hemorrhage type Qualified Code(s): K92.2 - Gastrointestinal hemorrhage, unspecified Plan to address problem: GI bleed protocol: GI team consulted in ED, IV PPI therapy, packed red blood cell transfusion, supportive care, CBC, repeat CBC in a.m., endoscopic evaluation as per GI team. (2) GIST, malignant Current Visit: No Status: Acute Qualifiers: Malignant gastrointestinal stromal tumor location: stomach Qualified Code(s): C49.A2 - Gastrointestinal stromal tumor of stomach Plan to address problem: Supportive care, pain control, bowel rest, GI team consulted for endoscopic evaluation, outpatient oncology follow-up. (3) Blood loss anemia Current Visit: Yes Status: Acute Plan to address problem: CBC, packed red blood cell transfusion, repeat CBC in a.m. (4) Hypertension Current Visit: No Status: Acute Qualifiers: Hypertension type: essential hypertension Qualified Code(s): I10 - Essential (primary) hypertension Plan to address problem: Monitor blood pressure every shift, continue medical management. Hold antihypertensive therapy for now due to patient hypotension. (5) DVT prophylaxis Current Visit: Yes Status: Acute Plan to address problem: SCDs bilateral lower extremities while in bed, patient is ambulatory. (6) Advance care planning Current Visit: Yes Status: Acute Plan to address problem: Disease education conducted, care plan discussed, diagnosis discussed, prognosis discussed, patient is full code. Patient is informed of his diagnosis and potential complications. Patient reports desire to seek aggressive therapy. Patient knowledges understanding prognosis. +30 minutes.
[2021-04-23] MEDS ORDERED: oxyCODONE 5 MG TAB PO PRN (14:30)
--- NOTE | 2021-04-23 15:11 | Cat Scan Report ---
CT angio abdomen pelvis INDICATION / CLINICAL INFORMATION: GIST tumor. GI bleed.. TECHNIQUE: Axial CT images were obtained after injection of Omnipaque 350, 100 cc IV contrast using CTA protocol . 3 plane MIP / 3D reconstructions were produced. All CT scans at this location are performed using C T dose reduction for ALARA by means of automated exposure control. COMPARISON: CT abdomen and pelvis 11/24/2019 CTA ABDOMEN: The aorta is normal in caliber. Moderate narrowing is seen at the origin of the celiac a xis due to compression by the median arcuate ligament. The SMA, BRIANNA and renal arteries are widely pat ent. Negative for vascular extravasation. CTA PELVIS: Tortuosity of the iliac system without significant atherosclerotic disease or focal narro wing. No active bleeding at the pelvis. CT portion of the examination demonstrates worsening diffuse hepatic metastatic disease. A representa tive lesion at the lateral segment of the left hepatic lobe previously measured 6.5 and the greatest transverse dimension. Current size is 8.1 cm. A cavitary lesion along the anterior aspect of the stom ach on the left is increase in size from 9-10 0.5 cm in the greatest transverse dimension. IMPRESSION: 1. Negative for active bleeding. 2. Enlarging gist tumor with worsening metastatic disease. Signer Name: Doc Arthur MD Signed: 04/23/2021 3:06 PM Workstation Name: [email or web address]
[2021-04-23] MEDS: PANTOPRAZOLE 40 MG INJ IV SCH (23:18)
[2021-04-23] MEDS: oxyCODONE /ACETAMINOPHEN 5-325MG TAB PO PRN (23:30)
[2021-04-24 04:35] LABS: Mean Corpuscular HGB Conc 31 % (32-34); Mean Corpuscular Volume 78 fl (84-94); Platelet Count 350 K/mm3 (140-440); Red Blood Count 2.15 M/mm3 (3.65-5.03)
[2021-04-24 04:41] LABS: Hematocrit 16.8 % (35.5-45.6); Hemoglobin 5.2 gm/dl (11.8-15.2); Red Cell Distribution Width 21.8 % (13.2-15.2)
[2021-04-24 04:44] LABS: Eosinophils % (Auto) 0.1 % (0.0-4.3); Monocytes # (Auto) 1.5 K/mm3 (0.0-0.8); Monocytes % (Auto) 11.8 % (0.0-7.3)
[2021-04-24 04:45] LABS: Lymphocytes % (Auto) 4.6 % (13.4-35.0)
[2021-04-24 04:46] LABS: Basophils % (Auto) 0.2 % (0.0-1.8); Lymphocytes # (Auto) 0.6 K/mm3 (1.2-5.4)
[2021-04-24] MEDS ORDERED: SODIUM CHLORIDE 0.9% 500 ML 500 ML IV ONE (05:25)
[2021-04-24] MEDS ORDERED: SODIUM CHLORIDE 0.9% 500 ML 500 ML ONE (07:57)
[2021-04-24] MEDS: PANTOPRAZOLE 40 MG INJ IV SCH ×2 (09:33→21:42)
[2021-04-24] MEDS: oxyCODONE /ACETAMINOPHEN 5-325MG TAB PO PRN ×2 (10:02→20:35)
--- NOTE | 2021-04-24 10:39 | Consultation ---
History of Present Illness - Reason for Consult Consult date: 04/24/21 GI bleed Requesting physician: KALEY GARCÍA - History of Present Illness Mr. 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 He presented to the hospital after having a near syncopal episode at home. He states that he has noted black stool for the last 1 week. He has been having intermittent epigastric pain for the last 2 months. Patient has had GI bleeding and underwent upper endoscopy on November [id number] at which time a GIST was diagnosed with 4 ulcerations on it. He presented again in 2019 with anemia with a hemoglobin of approximately 5 and an endoscopy was not performed at that time. He was diagnosed with stage IV GIST in 2019. He was being followed by Dr. Javier in oncology and was on Gleevec. Dr. Javier left the area approximately 6 months ago, and the patient has not followed up with anybody since then. He last took Gleevec approximately 4 to 6 months ago as well. He denies chest pain or shortness of breath. He denies significant weight loss. He denies nausea or vomiting or hematochezia. He is not following up with any physician, either primary or oncology or GI. Meds reviewed. Past History Past Medical History: arthritis, cancer (GIST - stage IV), hypertension, other (See HPI) Past Surgical History: total hip replacement Social history: . denies: smoking, alcohol abuse, prescription drug abuse Family history: hypertension Medications and Allergies Allergies Allergy/AdvReac Type Severity Reaction Status Date / Time No Known Allergies Allergy Verified 03/01/20 08:51 Home Medications Medication Instructions Recorded Confirmed Last Taken Type lisinopriL [Zestril TAB] 40 mg PO QDAY #30 tablet 12/08/19 01/10/20 01/08/20 21:00 Rx Oxycodone HCl/Acetaminophen 1 each PO Q6HR PRN #30 tablet 01/14/20 Unknown Rx [Percocet 10/325 mg] Pantoprazole [Protonix TAB] 40 mg PO BID #60 tablet 01/14/20 Unknown Rx amLODIPine [Norvasc] 10 mg PO DAILY #30 tab 03/01/20 Unknown Rx hydroCHLOROthiazide [Hctz] 12.5 mg PO QDAY #30 capsule 03/01/20 Unknown Rx predniSONE [Deltasone] 20 mg PO DAILY #15 tablet 03/01/20 Unknown Rx amLODIPine 10 mg PO DAILY #30 tab 05/13/20 Unknown Rx predniSONE [Deltasone] 20 mg PO QDAY #3 tab 05/13/20 Unknown Rx Active Meds: Active Medications Oxycodone HCl (Oxycodone 5 Mg Tab) 5 mg PO Q6H PRN PRN Reason: Pain , Severe (7-10) Oxycodone/Acetaminophen (Oxycodone /Acetaminophen 5-325mg Tab) 1 tab PO Q6H PRN PRN Reason: Pain , Severe (7-10) Last Admin: 04/24/21 10:02 Dose: 1 tab Documented by: Pantoprazole Sodium (Pantoprazole 40 Mg Inj) 40 mg IV BID [facility] Last Admin: 04/24/21 09:33 Dose: 40 mg Documented by: Sodium Chloride (Sodium Chloride 0.9% 10 Ml Flush Syringe) 10 ml IV BID [facility] Last Admin: 04/24/21 09:34 Dose: 10 ml Documented by: Sodium Chloride (Sodium Chloride 0.9% 10 Ml Flush Syringe) 10 ml IV PRN PRN PRN Reason: LINE FLUSH Review of Systems All systems: negative (as per HPI) Exam - Constitutional Vitals: Temp Pulse Resp BP Pulse Ox 99 F 70 16 169/76 99 04/24/21 09:20 04/24/21 09:20 04/24/21 09:15 04/24/21 09:20 04/24/21 09:15 General appearance: Present: no acute distress - EENT Eyes: Present: PERRL, EOM intact ENT: hearing intact - Respiratory Respiratory effort: normal Respiratory: bilateral: CTA - Cardiovascular Rhythm: regular Heart Sounds: Present: S1 & S2 - Extremities Extremities: No edema - Abdominal General gastrointestinal: Present: soft, mass (fullness in epigastrium) Results - Labs CBC & Chem 7: 04/24/21 04:16 04/23/21 10:15 Labs: Abnormal lab results 04/23/21 04/23/21 04/23/21 Range/Units 09:57 10:15 10:15 WBC 12.9 H (4.5-11.0) K/mm3 RBC 1.60 L (3.65-5.03) M/mm3 Hgb 3.4 L* (11.8-15.2) gm/dl Hct 12.5 L* (35.5-45.6) % MCV 78 L (84-94) fl MCH 21 L (28-32) pg MCHC 27 L (32-34) % RDW 21.6 H (13.2-15.2) % Lymph % (Auto) (13.4-35.0) % [place] % (Auto) (0.0-7.3) % Lymph # (Auto) (1.2-5.4) K/mm3 [place] # (Auto) (0.0-0.8) K/mm3 Seg Neutrophils % (40.0-70.0) % Seg Neuts % (Manual) 94.0 H (40.0-70.0) % Lymphocytes % (Manual) 1.0 L (13.4-35.0) % Seg Neutrophils # (1.8-7.7) K/mm3 Seg Neutrophils # Man 12.1 H (1.8-7.7) K/mm3 Lymphocytes # (Manual) 0.1 L (1.2-5.4) K/mm3 PT 15.9 H (12.2-14.9) Sec. INR 1.29 H (0.87-1.13) APTT 20.4 L (24.2-36.6) Sec. BUN (9-20) mg/dL Glucose (75-100) mg/dL Calcium (8.4-10.2) mg/dL Crossmatch See Detail 04/23/21 04/24/21 Range/Units 10:15 04:16 WBC 13.0 H (4.5-11.0) K/mm3 RBC 2.15 L (3.65-5.03) M/mm3 Hgb 5.2 L* (11.8-15.2) gm/dl Hct 16.8 L* (35.5-45.6) % MCV 78 L (84-94) fl MCH 24 L (28-32) pg MCHC 31 L (32-34) % RDW 21.8 H (13.2-15.2) % Lymph % (Auto) 4.6 L (13.4-35.0) % [place] % (Auto) 11.8 H (0.0-7.3) % Lymph # (Auto) 0.6 L (1.2-5.4) K/mm3 [place] # (Auto) 1.5 H (0.0-0.8) K/mm3 Seg Neutrophils % 83.3 H (40.0-70.0) % Seg Neuts % (Manual) (40.0-70.0) % Lymphocytes % (Manual) (13.4-35.0) % Seg Neutrophils # 11.0 H (1.8-7.7) K/mm3 Seg Neutrophils # Man (1.8-7.7) K/mm3 Lymphocytes # (Manual) (1.2-5.4) K/mm3 PT (12.2-14.9) Sec. INR (0.87-1.13) APTT (24.2-36.6) Sec. BUN 28 H (9-20) mg/dL Glucose 139 H (75-100) mg/dL Calcium 7.8 L (8.4-10.2) mg/dL Crossmatch - Imaging and Cardiology CT scan - abdomen: report reviewed (10 cm anterior gastric cavitary lesion. 6 cm mass in liver.) Assessment and Plan 1. GI bleed -most likely secondary to known GIST, and this has happened previously. Patient has not been compliant with recommendations or follow-up. Unfortunately, endoscopic options are limited in this kind of tumor. Patient does not appear to be actively bleeding in an aggressive fashion. -Agree with empiric proton pump inhibitor -Monitor hemoglobin and transfuse as needed -We will consider endoscopy tomorrow to assess -Needs oncology evaluation and follow-up
[2021-04-24 14:45] LABS: Hematocrit 21.2 % (35.5-45.6); Hemoglobin 6.6 gm/dl (11.8-15.2)
[2021-04-24] MEDS ORDERED: SODIUM CHLORIDE 0.9% 500 ML 500 ML IV NR (15:25)
--- NOTE | 2021-04-24 15:29 | Progress Note ---
Assessment and Plan Mr. Torres is a 65-year-old man was diagnosed with stage IV GIST in 2019 presented to the hospital after having a near syncopal episode at home and having black stool for the last 1 week A/P --Acute gastrointestinal hemorrhage GI bleed protocol: GI team consulted in ED, IV PPI therapy, packed red blood cell transfusion, supportive care, CBC, repeat CBC in a.m., endoscopic evaluation tomorrow as per GI team. --Presyncope due to severe anemia Continue to provide supportive care, transfuse as needed -- GIST, malignant Patient did not have any follow-up for the last 6 months Supportive care, pain control, bowel rest, GI team consulted for endoscopic evaluation, We will set up outpatient oncology follow-up on discharge. -- Blood loss anemia Status post 3 units packed red blood cell transfusion, Will transfuse additional 1 unit, monitor CBC -- Hypertension Monitor blood pressure every shift, continue medical management. Hold antihypertensive therapy for now due to patient hypotension. --DVT prophylaxis SCDs bilateral lower extremities while in bed, patient is ambulatory. -- Advance care planning Patient is full code. Patient is informed of his diagnosis and potential complications. Patient reports desire to seek aggressive therapy. Patient knowledges understanding prognosis. +30 minutes. Daily clinical course: 04/24/21: Patient received 3 units of packed RBCs so far. Repeat H&H showed hemoglobin of 6.6. Will transfuse additional 2 units of packed RBC. GI consulted and planning for endoscopic tomorrow. Continue to monitor clinically and provide supportive care. We will transfer to telemetry. Subjective Date of service: 04/24/21 Interval history: Patient seen and examined. Medical records and medication list reviewed. No acute event overnight noted by the RN. Patient denies any chest pain or difficulty breathing. Denies any active bleeding, received so far 3 units of packed RBC Discussed plan of care at bedside with patient. Objective - Exam Narrative Exam: GENERAL: well-developed elderly male lying on bed appeared to be in no discomfort. HEENT: Normocephalic. Atraumatic. No conjunctival congestion or icterus. Patient has moist mucous membranes. NECK: Supple. Trachea midline. CHEST/LUNGS: Clear to auscultated bilaterally, breathing nonlabored. No wheezes crackles or rhonchi. HEART/CARDIOVASCULAR: Regular in rate and rhythm. S1 and S2 positive. ABDOMEN: Abdomen is soft, nontender. Patient has normal bowel sounds. SKIN: There is no rash. Warm and dry. NEURO: No focal motor deficit. Follows command. MUSCULOSKELETAL: No joint effusion or tenderness. EXTRIMITY: No edema, no cyanosis or clubbing. PSYCH: Cooperative. - Constitutional Vitals: Vital Signs - 12hr 04/24/21 04/24/21 04/24/21 03:31 03:41 03:51 Temperature Pulse Rate 60 61 76 Pulse Rate [ From Monitor] Respiratory 13 12 12 Rate Blood Pressure 129/57 129/57 129/57 O2 Sat by Pulse 99 99 99 Oximetry 04/24/21 04/24/21 04/24/21 04:00 04:01 04:11 Temperature 98.3 F Pulse Rate 59 L 56 L 65 Pulse Rate [ 59 L From Monitor] Respiratory 13 13 11 L Rate Blood Pressure 135/60 135/60 O2 Sat by Pulse 99 99 100 Oximetry 04/24/21 04/24/21 04/24/21 04:21 04:31 04:41 Temperature Pulse Rate 59 L 57 L 59 L Pulse Rate [ From Monitor] Respiratory 13 13 13 Rate Blood Pressure 135/60 135/60 135/60 O2 Sat by Pulse 99 100 100 Oximetry 04/24/21 04/24/21 04/24/21 04:51 05:01 05:11 Temperature Pulse Rate 61 68 62 Pulse Rate [ From Monitor] Respiratory 11 L 12 13 Rate Blood Pressure 135/60 144/51 144/51 O2 Sat by Pulse 99 100 99 Oximetry 04/24/21 04/24/21 04/24/21 05:21 05:31 05:41 Temperature Pulse Rate 69 60 71 Pulse Rate [ From Monitor] Respiratory 13 13 14 Rate Blood Pressure 144/51 144/51 144/51 O2 Sat by Pulse 99 100 100 Oximetry 04/24/21 04/24/21 04/24/21 05:51 06:00 06:11 Temperature Pulse Rate 73 71 73 Pulse Rate [ From Monitor] Respiratory 14 15 14 Rate Blood Pressure 144/51 138/43 138/43 O2 Sat by Pulse 100 99 100 Oximetry 04/24/21 04/24/21 04/24/21 06:21 06:31 06:41 Temperature Pulse Rate 72 62 74 Pulse Rate [ From Monitor] Respiratory 15 14 14 Rate Blood Pressure 138/43 138/43 138/43 O2 Sat by Pulse 99 100 99 Oximetry 04/24/21 04/24/21 04/24/21 06:51 07:00 07:01 Temperature 99.8 F H Pulse Rate 64 66 Pulse Rate [ From Monitor] Respiratory 14 14 Rate Blood Pressure 138/43 139/63 O2 Sat by Pulse 98 100 Oximetry 04/24/21 04/24/21 04/24/21 07:11 07:21 07:31 Temperature Pulse Rate 74 79 82 Pulse Rate [ From Monitor] Respiratory 14 16 18 Rate Blood Pressure 139/63 139/63 139/63 O2 Sat by Pulse 99 99 Oximetry 04/24/21 04/24/21 04/24/21 07:41 07:51 08:00 Temperature 99.7 F H Pulse Rate 77 80 80 Pulse Rate [ 70 From Monitor] Respiratory 20 19 18 Rate Blood Pressure 139/63 139/63 145/67 O2 Sat by Pulse 100 99 100 Oximetry 04/24/21 04/24/21 04/24/21 08:11 08:15 08:20 Temperature 99.3 F Pulse Rate 72 76 75 Pulse Rate [ From Monitor] Respiratory 17 18 18 Rate Blood Pressure 145/67 148/75 148/75 O2 Sat by Pulse 100 99 99 Oximetry 04/24/21 04/24/21 04/24/21 08:30 08:41 08:45 Temperature 99.3 F Pulse Rate 74 66 87 Pulse Rate [ From Monitor] Respiratory 18 19 18 Rate Blood Pressure 148/68 148/68 154/75 O2 Sat by Pulse 99 99 99 Oximetry 04/24/21 04/24/21 04/24/21 08:51 09:01 09:11 Temperature Pulse Rate 65 65 83 Pulse Rate [ From Monitor] Respiratory 18 14 20 Rate Blood Pressure 145/66 150/68 150/68 O2 Sat by Pulse 98 99 99 Oximetry 04/24/21 04/24/21 04/24/21 09:15 09:20 09:21 Temperature 99.2 F 99 F Pulse Rate 84 70 94 H Pulse Rate [ From Monitor] Respiratory 16 19 Rate Blood Pressure 131/87 169/76 154/75 O2 Sat by Pulse 99 99 Oximetry 04/24/21 04/24/21 04/24/21 09:31 09:41 09:51 Temperature Pulse Rate 87 78 91 H Pulse Rate [ From Monitor] Respiratory 17 21 14 Rate Blood Pressure 131/87 131/87 169/76 O2 Sat by Pulse 99 98 99 Oximetry 04/24/21 04/24/21 04/24/21 10:01 10:11 10:21 Temperature Pulse Rate 91 H 86 82 Pulse Rate [ From Monitor] Respiratory 16 19 19 Rate Blood Pressure 172/82 172/82 169/76 O2 Sat by Pulse 100 98 97 Oximetry 04/24/21 04/24/21 04/24/21 10:31 10:41 10:51 Temperature Pulse Rate 71 75 75 Pulse Rate [ From Monitor] Respiratory 12 11 L 17 Rate Blood Pressure 169/76 169/76 172/82 O2 Sat by Pulse 96 97 97 Oximetry 04/24/21 04/24/21 04/24/21 11:01 11:11 11:21 Temperature Pulse Rate 63 62 72 Pulse Rate [ From Monitor] Respiratory 13 13 12 Rate Blood Pressure 147/64 147/64 147/64 O2 Sat by Pulse 97 98 97 Oximetry 04/24/21 04/24/21 11:31 12:00 Temperature 98.4 F Pulse Rate 75 Pulse Rate [ From Monitor] Respiratory 13 Rate Blood Pressure 147/64 O2 Sat by Pulse 98 Oximetry - Labs CBC & Chem 7: 04/25/21 07:46 04/23/21 10:15 Labs: Abnormal lab results 04/23/21 04/24/21 04/24/21 Range/Units 09:57 04:16 11:51 WBC 13.0 H (4.5-11.0) K/mm3 RBC 2.15 L (3.65-5.03) M/mm3 Hgb 5.2 L* (11.8-15.2) gm/dl Hct 16.8 L* (35.5-45.6) % MCV 78 L (84-94) fl MCH 24 L (28-32) pg MCHC 31 L (32-34) % RDW 21.8 H (13.2-15.2) % Lymph % (Auto) 4.6 L (13.4-35.0) % [place] % (Auto) 11.8 H (0.0-7.3) % Lymph # (Auto) 0.6 L (1.2-5.4) K/mm3 [place] # (Auto) 1.5 H (0.0-0.8) K/mm3 Seg Neutrophils % 83.3 H (40.0-70.0) % Seg Neutrophils # 11.0 H (1.8-7.7) K/mm3 POC Glucose 111 H (70-105) mg/dL Crossmatch See Detail 04/24/21 Range/Units 14:25 WBC (4.5-11.0) K/mm3 RBC (3.65-5.03) M/mm3 Hgb 6.6 L (11.8-15.2) gm/dl Hct 21.2 L (35.5-45.6) % MCV (84-94) fl MCH (28-32) pg MCHC (32-34) % RDW (13.2-15.2) % Lymph % (Auto) (13.4-35.0) % [place] % (Auto) (0.0-7.3) % Lymph # (Auto) (1.2-5.4) K/mm3 [place] # (Auto) (0.0-0.8) K/mm3 Seg Neutrophils % (40.0-70.0) % Seg Neutrophils # (1.8-7.7) K/mm3 POC Glucose (70-105) mg/dL Crossmatch HEART Score - HEART Score Troponin: Troponin T < 0.010 ng/mL (0.00-0.029) 04/23/21 10:15
[2021-04-24] MEDS ORDERED: D5W/0.9% NACL 1,000 ML IV SCH (16:00)
[2021-04-24 23:16] LABS: Hematocrit 20.2 % (35.5-45.6); Hemoglobin 6.4 gm/dl (11.8-15.2)
[2021-04-25 08:18] LABS: Hematocrit 26.1 % (35.5-45.6); Hemoglobin 8.5 gm/dl (11.8-15.2)
[2021-04-25] MEDS: PANTOPRAZOLE 40 MG INJ IV SCH (10:19)
[2021-04-25] MEDS ORDERED: SODIUM CHLORIDE 0.9% 1000 ML 1,000 ML IV SCH (10:30)
--- NOTE | 2021-04-25 12:16 | Progress Note ---
Assessment and Plan 1. GI bleed -stable, with appropriate increase in Hgb. No evidence of ongoing GI bleed. 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 Pt has 10 cm cavitating lesion arising off anterior aspect of stomach. Patient has not been compliant with recommendations or follow-up. Unfortunately, endoscopic options are limited in this kind of tumor. Patient does not appear to be actively bleeding in an aggressive fashion. -empiric proton pump inhibitor -Monitor hemoglobin and transfuse as needed -will not plan on EGD as no active bleeding, and, as stated, endoscopic options very limited. -Needs oncology evaluation and follow-up - advance diet - if tolerates, may discharge from GI standpoint. Subjective Date of service: 04/25/21 Interval history: Pt hungry. No more BMs. No abd pain, N/V. Objective - Constitutional Vitals: Vital Signs - 12hr 04/25/21 04/25/21 04/25/21 00:14 00:15 00:20 Temperature 99.0 F Pulse Rate 59 L 65 54 L Respiratory 18 18 Rate Blood Pressure 142/62 142/62 O2 Sat by Pulse 99 98 Oximetry 04/25/21 04/25/21 04/25/21 00:50 01:20 01:50 Temperature Pulse Rate 63 89 62 Respiratory 18 18 18 Rate Blood Pressure 136/67 150/80 151/64 O2 Sat by Pulse 100 98 99 Oximetry 04/25/21 04/25/21 04/25/21 04:05 04:42 05:23 Temperature 99.5 F 99.2 F Pulse Rate 72 70 69 Respiratory 18 18 Rate Blood Pressure 148/76 157/74 O2 Sat by Pulse 99 98 Oximetry 04/25/21 04/25/21 04/25/21 05:38 06:08 06:38 Temperature Pulse Rate 70 63 56 L Respiratory 18 18 18 Rate Blood Pressure 149/77 145/73 149/80 O2 Sat by Pulse 99 100 99 Oximetry 04/25/21 04/25/21 04/25/21 07:08 08:01 10:00 Temperature 98.8 F Pulse Rate 73 77 68 Respiratory 18 18 Rate Blood Pressure 152/79 155/79 O2 Sat by Pulse 99 97 97 Oximetry General appearance: Present: no acute distress - EENT Eyes: PERRL, EOM intact ENT: hearing intact - Respiratory Respiratory effort: normal - Gastrointestinal General gastrointestinal: Present: soft, tender (mild epigastric) - Labs CBC & Chem 7: 04/25/21 07:46 04/23/21 10:15 Labs: Abnormal lab results 04/23/21 04/24/21 04/24/21 Range/Units 09:57 11:51 14:25 Hgb 6.6 L (11.8-15.2) gm/dl Hct 21.2 L (35.5-45.6) % POC Glucose 111 H (70-105) mg/dL Crossmatch See Detail 04/24/21 04/24/21 04/25/21 Range/Units 15:45 22:51 07:46 Hgb 6.4 L 8.5 L (11.8-15.2) gm/dl Hct 20.2 L 26.1 L (35.5-45.6) % POC Glucose 113 H (70-105) mg/dL Crossmatch Medications & Allergies - Medications Allergies/Adverse Reactions: Allergies No Known Allergies Allergy (Verified 03/01/20 08:51) Home Medications: Home Medications Medication Instructions Recorded Confirmed Last Taken Type lisinopriL [Zestril TAB] 40 mg PO QDAY #30 tablet 12/08/19 01/10/20 01/08/20 21:00 Rx Oxycodone HCl/Acetaminophen 1 each PO Q6HR PRN #30 tablet 01/14/20 Unknown Rx [Percocet 10/325 mg] Pantoprazole [Protonix TAB] 40 mg PO BID #60 tablet 01/14/20 Unknown Rx amLODIPine [Norvasc] 10 mg PO DAILY #30 tab 03/01/20 Unknown Rx hydroCHLOROthiazide [Hctz] 12.5 mg PO QDAY #30 capsule 03/01/20 Unknown Rx predniSONE [Deltasone] 20 mg PO DAILY #15 tablet 03/01/20 Unknown Rx amLODIPine 10 mg PO DAILY #30 tab 05/13/20 Unknown Rx predniSONE [Deltasone] 20 mg PO QDAY #3 tab 05/13/20 Unknown Rx Active Medications: Generic Name Dose Route Start Last Admin Trade Name Freq PRN Reason Stop Dose Admin Sodium Chloride 1,000 mls @ 50 mls/hr 04/25/21 10:30 Nacl 0.9% 1000 Ml IV DIRECT LIZ Oxycodone HCl 5 mg 04/23/21 14:30 Oxycodone 5 Mg Tab PO Q6H PRN Pain , Severe (7-10) Oxycodone/Acetaminophen 1 tab 04/23/21 14:30 04/24/21 20:35 Oxycodone /Acetaminophen 5-325mg Tab PO 1 tab Q6H PRN Administration Pain , Severe (7-10) Pantoprazole Sodium 40 mg 04/23/21 22:00 04/25/21 10:19 Pantoprazole 40 Mg Inj IV 40 mg BID LIZ Administration Sodium Chloride 10 ml 04/23/21 14:00 04/25/21 10:20 Sodium Chloride 0.9% 10 Ml Flush Syringe IV 10 ml BID LIZ Administration Sodium Chloride 10 ml 04/23/21 14:00 Sodium Chloride 0.9% 10 Ml Flush Syringe IV PRN PRN LINE FLUSH HEART Score - HEART Score Troponin: Troponin T < 0.010 ng/mL (0.00-0.029) 04/23/21 10:15
[2021-04-25 12:46] VITALS: BP 156/86
[2021-04-25 15:14] LABS: Hematocrit 28.4 % (35.5-45.6)
--- NOTE | 2021-04-25 15:21 | Discharge Summary ---
Providers - Providers Date of Admission: 04/23/21 13:43 Date of discharge: 04/25/21 Attending physician: EMELYN CHANG 04/23/21 11:32 Consult to Physician [CONS] Stat Comment: Consulting Provider: CHICA OLIVA Physician Instructions: Reason For Exam: GI bleed Primary care physician: VARGAS CHACKO Hospitalization Condition: Stable Hospital course: Mr. Torres is a 65-year-old man was diagnosed with stage IV GIST in 2019 presented to the hospital after having a near syncopal episode at home and having black stool for the last 1 week. Patient noted to have hemoglobin of 3.4 in the ER, CT abdomen pelvis showed enlarging GIST tumor with metastatic features. Chest x-ray showed cardiomegaly but no acute event change compared to prior chest x-ray. Patient was admitted to the [facility], transfused total 4 units of packed RBC. He was monitored for the active bleeding. He was also initiated on PPI, GI was consulted. GI recommended patient to have outpatient follow-up with oncology as there is not much a role of EGD with a known case of metastatic GIST tumor. Discharge plan and management was thoroughly discussed with the patient and patient recommended follow-up with Dr. Mcgovern as outpatient. Patient verbalized understanding and was discharged home in stable condition. Disposition: DC-01 TO HOME OR SELFCARE Final Discharge Diagnosis (Prints w/discharge instructions): Acute gastrointestinal hemorrhage due to underlying stage IV gastric cancer. Presyncopal episode due to severe anemia. Stage IV GIST. Blood loss anemia. Hypertension. Noncompliance Time spent for discharge: 40 minutes Core Measure Documentation - Palliative Care Palliative Care/ Comfort Measures: Not Applicable - Core Measures Any of the following diagnoses?: none Exam - Physical Exam Narrative exam: GENERAL: well-developed elderly male lying on bed appeared to be in no discomfort. HEENT: Normocephalic. Atraumatic. No conjunctival congestion or icterus. Patient has moist mucous membranes. NECK: Supple. Trachea midline. CHEST/LUNGS: Clear to auscultated bilaterally, breathing nonlabored. No wheezes crackles or rhonchi. HEART/CARDIOVASCULAR: Regular in rate and rhythm. S1 and S2 positive. ABDOMEN: Abdomen is soft, nontender. Patient has normal bowel sounds. SKIN: There is no rash. Warm and dry. NEURO: No focal motor deficit. Follows command. MUSCULOSKELETAL: No joint effusion or tenderness. EXTRIMITY: No edema, no cyanosis or clubbing. PSYCH: Cooperative. - Constitutional Vitals: Temp Pulse Resp BP Pulse Ox 99.3 F 75 19 156/86 96 04/25/21 10:58 04/25/21 10:58 04/25/21 10:58 04/25/21 10:58 04/25/21 10:58 Plan Activity: advance as tolerated Weight Bearing Status: Weight Bear as Tolerated Diet: advance as tolerated Additional Instructions: Follow-up with oncologist Dr. Mcgovern for your stage IV GIST tumor. Repeat CBC in 1 week. Continue Protonix twice daily Follow up with: VARGAS CHACKO MD [Primary Care Provider] - 3-5 Days ZE MCGOVERN MD [Staff Physician] - 7 Days
== END 2021-04-25 18:07 | disposition home or self-care (01) | DRG 375 ==
LOC: ED 08:10 → IMCU 13:43 → 4A 04-24 19:04
PROVIDERS: ADMIT Internal Medicine; ATTEND Internal Medicine
PROC: 30233N1 Transfusion of Nonautologous Red Blood Cells into Peripheral Vein, Percutaneous Approach (ICD-10-PCS; principal; 2021-04-23)
PROC: 06HY33Z Insertion of Infusion Device into Lower Vein, Percutaneous Approach (ICD-10-PCS; 2021-04-23)
DX: C16.9 Malignant neoplasm of stomach, unspecified (principal); C78.7 Secondary malignant neoplasm of liver and intrahepatic bile duct; D62 Acute posthemorrhagic anemia; C49.A2 Gastrointestinal stromal tumor of stomach; I95.9 Hypotension, unspecified; I10 Essential (primary) hypertension; M19.90 Unspecified osteoarthritis, unspecified site; Z96.642 Presence of left artificial hip joint; Z72.89 Other problems related to lifestyle; Z91.14 Patient's other noncompliance with medication regimen; Z82.49 Family history of ischemic heart disease and other diseases of the circulatory system; Z79.899 Other long term (current) drug therapy
CPT/HCPCS: 36415; 71045; 74174; 80048; 82962; 84484; 85007; 85014; 85018; 85025; 85610; 85730; 86850; 86900; 86901; 86920; 93005; 96374; G0378; C9113; J7030; J7040; J7042; P9016; Q9967